=== PATIENT | female | born 1950 | race African-American/Black ===

== ENCOUNTER 2016-10-16 19:57 | Inpatient (IN) ==
[2016-10-16] MEDS ORDERED: ONDANSETRON 4 MG/2 ML VIAL IV STA (20:34)
[2016-10-16] MEDS ORDERED: SODIUM CHLORIDE 0.9% 1,000 ML IV STA (20:40)
[2016-10-16] MEDS ORDERED: ONDANSETRON 4 MG/2 ML VIAL ONE (20:41)
[2016-10-16 20:42] LABS: Basophils % 0.1 % (0.0-0.8); Hematocrit 45.6 VOL% (35.7-47.0); Hemoglobin 15.8 GM/DL (12.0-16.0); Immature Granulocytes % 0.3 %; Immature Granulocytes Absolute 0.04 #; Lymphocytes # 0.9 10*3/uL (1.4-4.0); Lymphocytes % 6.7 % (21.3-54.2); Mean Corpuscular HGB Conc 34.6 GM/DL (32-36); Mean Corpuscular Hemoglobin 30 PG (27-34); Mean Corpuscular Volume 87.7 FL (87-102); Mean Platelet Volume 9.8 FL (9.6-12.0); Monocytes # 0.1 10*3/uL (0.11-0.8); Monocytes % 0.9 % (1.7-12.7); Neutrophils # 12.6 10*3/uL (1.4-7.4); Platelet Count 317 T/CUMM (130-400); Red Cell Distribution Width 11.9 % (9.3-17.3); White Blood Count 13.7 T/CUMM (4-12)
--- NOTE | 2016-10-16 20:44 | Emergency Department Note ---
Arrival - Arrival Chief Complaint: Nausea/Vomiting/Diarrhea Stated Complaint: NAUSEA/VOMITING ED Nursing Triage Note: Pt to triage with c/o n/v, fever, chillis, and not being able to eat. Pt states she had a biopsy of throat done recently and it showed she had a "bad infection". Mode of Arrival: Ambulatory Time Seen by Provider: 10/16/16 20:26 - History of Present Illness HPI Narrative: This is a 66-year-old white female with a history of type 2 diabetes, hypothyroidism, atrial fibrillation with previous TIAs on Xarelto, hypertension , hyperlipidemia and dextrocardia who 2 weeks ago developed throat pain worse with swallowing radiating to her stomach for which an ENT doctor did a biopsy of her throat and told her she does not have cancer but rather has an infection. An MRI scan within the last 2 weeks of her back showed some kind of a mass in her stomach for which she is scheduled to have a CT scan next week. The patient presents with worsening throat pain, pain with swallowing fever and vomiting. Allergies/Adverse Reactions: Allergies Allergy/AdvReac Type Severity Reaction Status Date / Time Iodinated Contrast Media - Allergy Unknown/Unable Verified 03/30/16 17:18 Oral and to obtain [Iodinated Contrast Media - IV Dye] Sulfa (Sulfonamide Allergy Unknown/Unable Verified 03/30/16 17:18 Antibiotics) to obtain Home Medications: Home Medications Medication Instructions Recorded Confirmed Type Aspirin EC Tab 81 mg PO DAILY 03/30/16 09/20/16 History Baclofen Tab [Lioresal] 10 mg PO TID PRN 03/30/16 09/20/16 History Glimepiride 2 mg PO BID 03/30/16 09/20/16 History Hydrocodone/Acetaminophen 1 each PO TID 03/30/16 09/26/16 History [Hydrocodon-Acetaminophn 10-325] Levothyroxine Tab [Synthroid Tab] 25 mcg PO DAILY@0700 03/30/16 09/20/16 History Lisinopril [Prinivil] 20 mg PO DAILY 03/30/16 09/20/16 History Magnesium Oxide 400 mg PO TID 03/30/16 09/20/16 History Morphine Sulfate [Morphine ER Cap] 60 mg PO Q12H 03/30/16 09/20/16 History Nitroglycerin Sl Tab [Nitrostat] 0.4 mg SL Q5M PRN 03/30/16 09/20/16 History Omeprazole 20 mg PO DAILY 03/30/16 09/20/16 History Polyethylene Glycol Powder 17 gm PO DAILY PRN 03/30/16 09/20/16 History [Miralax] Rivaroxaban [Xarelto] 20 mg PO DAILY 03/30/16 09/20/16 History Simvastatin [Zocor] 10 mg PO DAILY 03/30/16 09/20/16 History Verapamil HCl [Verapamil ER Tab] 180 mg PO DAILY 03/30/16 09/20/16 History Zolpidem Tartrate 10 mg PO BEDTIME PRN 03/30/16 09/20/16 History busPIRone [Buspar] 15 mg PO BID 03/30/16 09/20/16 History cloNIDine TAB [Catapres Tab] 0.1 mg PO DAILY 03/30/16 09/20/16 History hydroCHLOROthiazide [Microzide] 12.5 mg PO DAILY 03/30/16 09/20/16 History Varenicline [Chantix] 1 mg PO BID 09/20/16 09/20/16 History Review of System - Review of System Constitutional: Present: fever. Absent: chills, diaphoresis Eyes: Absent: redness, vision change Head/Ears/Nose/Throat: Absent: epistaxis, nasal drainage Respiratory: Absent: respiratory distress, wheezing Gastrointestinal: Absent: diarrhea, constipation Genitourinary female: Absent: dysuria, urgency Musculoskeletal: Absent: joint swelling, lower back pain Skin: Absent: change in color Neurological: Absent: numbness, paresthesias, confusion Psychiatric: Absent: anxiety, depression Endocrine: Absent: polydipsia, polyuria Hematological/Lymphatic: Absent: easy bruising, lymphadenopathy Allergic/Immunologic: Absent: urticaria Medical,Surgical,& Family Hx - Medical History Cardio: History of: Cardiac Dysrhythmia (a fib), Hypertension, Cardiovascular Problems (cardioversion) No history of: [place] Neurology: History of: Cerebrovascular Accident, TIA No history of: Seizures HEENT: History of: Glaucoma, HEENT Problems (vocal cord polyp) Endocrine: History of: Diabetes Mellitus (NIDDM), Dyslipidemia Rheumatology: History of;: Fibromyalgia Renal: History of: Renal Problems Genitourinary: No history of: Bladder Problem, Kidney Stones Gastrointestinal: History of: GERD Musculoskeletal: History of: Back/Neck Problems (back surgery), Musculoskeletal Problems (arthritis) Other: No history of: Anesthesia Reactions - Surgical History Cardiac Surgeries: Sugical HX of: Cardiac Catheterization HEENT Surgeries: Surgical HX of: Eye Surgery (laser) Patient denies: Tonsilectomy & Adenoidectomy Abdominal Surgeries: Surgical HX of: Cholecystectomy, Colonoscopy, EGD Patient denies: Appendectomy Reproductive Surgeries: Surgical HX of;: Breast Surgery (bx), Hysterectomy Orthopedic Surgeries: Surgical HX of;: Orthopedic Surgery (right knee) - Social History Smoking Status: Unknown if ever smoked Frequency of Alcohol Use: None Type of Drug Use: None Exam Vital Signs: Vital Signs Temperature 100.3 F H 10/16/16 20:10 Pulse Rate 131 H 10/16/16 20:10 Respiratory Rate 18 10/16/16 20:10 Blood Pressure 193/118 10/16/16 20:10 O2 Sat by Pulse Oximetry 99 10/16/16 20:10 - Head Head exam: Present: atraumatic, normocephalic - Eye Eye exam: Present: PERRL, EOMI - ENT ENT exam: Present: normal exam, normal oropharynx - Neck Neck exam: Present: normal inspection - Chest Chest inspection: Present: normal inspection - Respiratory Respiratory exam: Present: normal lung sounds bilaterally - Cardiovascular Cardiovascular exam: Present: other (Tachycardia) - Abdominal Exam Abdominal exam: Present: soft, normal bowel sounds - Extremities Exam Extremities exam: Present: normal inspection, full ROM - Back Exam Back exam: Present: normal inspection, full ROM - Neurological Exam Neurological exam: Present: alert, oriented X3, CN II-XII intact - Psychiatric Psychiatric exam: Present: normal affect - Skin Skin exam: Present: warm, dry
[2016-10-16 21:13] LABS: Albumin 4.2 G/DL (3.4-5.0); Bilirubin,Total 0.6 MG/DL (0.2-1.0); Calcium 10.2 MG/DL (8.5-10.1); Lymphocytes 9 % (20-55); Platelet Estimate Adequate; Segmented Neutrophils 90 % (50-85); Total Cells Counted 100
[2016-10-16 21:14] LABS: Potassium 4.4 MMOL/L (3.5-5.1)
[2016-10-16] MEDS ORDERED: SODIUM CHLORIDE 0.9% 2,000 ML IV STA (22:09)
[2016-10-16] MEDS ORDERED: PROMETHAZINE INJ 25 MG in SODIUM CHLORIDE 0.9% 50 ML IV STA (22:10)
[2016-10-16] MEDS ORDERED: LABETALOL 20 MG/4 ML SYRINGE IV STA ×3 (22:11→22:12)
[2016-10-16] MEDS ORDERED: PROMETHAZINE 25 MG/1 ML VIAL ONE (22:18)
[2016-10-16] MEDS ORDERED: LABETALOL 20 MG/4 ML SYRINGE IV ONE ×2 (22:18→22:54)
--- NOTE | 2016-10-16 23:08 | Hospitalist History & Physical ---
Assessment and Plan (1) Atrial fibrillation Status: Acute Current Visit: Yes (2) Uncontrolled hypertension Status: Acute Current Visit: Yes (3) Nausea & vomiting Status: Acute Current Visit: Yes (4) Gastroenteritis Status: Acute Current Visit: Yes (5) Odynophagia Status: Acute Current Visit: Yes (6) Esophageal ulcer Status: Acute Assessment and plan: Patient will need to be admitted to our service. She cannot tolerate p.o. medications at this time. We will put her on a clear liquid diet and restart her medications but have IV medications that can be available for heart rate and blood pressure if needed. Will hydrate her. Going to recheck her labs in the morning she is febrile. Think it would be appropriate to start her on some antibiotics at this point. Recheck labs in the morning. Her lactate level is elevated. She does not appear to be septic or toxic. Will repeat that in the morning. Consult Dr. Harvey to see her. If she has diarrhea while in the hospital order stool studies. Continue with IV hydration she received several boluses in the emergency room. Current Visit: Yes (7) Acute kidney injury Status: Acute Current Visit: Yes History of Present Illness Chief complaint: Nausea vomiting and abdominal pain History of present illness: Ms. Caldera is a 66 year old female with past medical history significant for atrial fibrillation, TIA, spinal stenosis, fibromyalgia and diabetes who has been experiencing nausea and vomiting 1 month. Patient also reports that she had throat pain worse with swallowing that radiated to her stomach which Dr. Harvey biopsied and said that she had ulcers. She also was scheduled for a CT scan of her abdomen later this week. She had that performed today while in the emergency room. That showed no acute or concerning focal abnormality. Patient is unable to keep down her blood pressure medicines and her rate controlling medications and I was consulted to admit her. Her heart rate is elevated and her blood pressure is elevated. . Home Medications Medication Instructions Recorded Confirmed Type Aspirin EC Tab 81 mg PO DAILY 03/30/16 09/20/16 History Baclofen Tab [Lioresal] 10 mg PO TID PRN 03/30/16 09/20/16 History Glimepiride 2 mg PO BID 03/30/16 09/20/16 History Hydrocodone/Acetaminophen 1 each PO TID 03/30/16 09/26/16 History [Hydrocodon-Acetaminophn 10-325] Levothyroxine Tab [Synthroid Tab] 25 mcg PO DAILY@0700 03/30/16 09/20/16 History Lisinopril [Prinivil] 20 mg PO DAILY 03/30/16 09/20/16 History Magnesium Oxide 400 mg PO TID 03/30/16 09/20/16 History Morphine Sulfate [Morphine ER Cap] 60 mg PO Q12H 03/30/16 09/20/16 History Nitroglycerin Sl Tab [Nitrostat] 0.4 mg SL Q5M PRN 03/30/16 09/20/16 History Omeprazole 20 mg PO DAILY 03/30/16 09/20/16 History Polyethylene Glycol Powder 17 gm PO DAILY PRN 03/30/16 09/20/16 History [Miralax] Rivaroxaban [Xarelto] 20 mg PO DAILY 03/30/16 09/20/16 History Simvastatin [Zocor] 10 mg PO DAILY 03/30/16 09/20/16 History Verapamil HCl [Verapamil ER Tab] 180 mg PO DAILY 03/30/16 09/20/16 History Zolpidem Tartrate 10 mg PO BEDTIME PRN 03/30/16 09/20/16 History busPIRone [Buspar] 15 mg PO BID 03/30/16 09/20/16 History cloNIDine TAB [Catapres Tab] 0.1 mg PO DAILY 03/30/16 09/20/16 History hydroCHLOROthiazide [Microzide] 12.5 mg PO DAILY 03/30/16 09/20/16 History Varenicline [Chantix] 1 mg PO BID 09/20/16 09/20/16 History Allergies Allergy/AdvReac Type Severity Reaction Status Date / Time Iodinated Contrast Media - Allergy Unknown/Unable Verified 03/30/16 17:18 Oral and to obtain [Iodinated Contrast Media - IV Dye] Sulfa (Sulfonamide Allergy Unknown/Unable Verified 03/30/16 17:18 Antibiotics) to obtain Medical,Surgical,& Family Hx - Medical History Cardio: History of: Cardiac Dysrhythmia (a fib), Hypertension, Cardiovascular Problems (cardioversion) No history of: [place] Neurology: History of: Cerebrovascular Accident, TIA No history of: Seizures HEENT: History of: Glaucoma, HEENT Problems (vocal cord polyp) Endocrine: History of: Diabetes Mellitus (NIDDM), Dyslipidemia Rheumatology: History of;: Fibromyalgia Renal: History of: Renal Problems Genitourinary: No history of: Bladder Problem, Kidney Stones Gastrointestinal: History of: GERD Musculoskeletal: History of: Back/Neck Problems (back surgery), Musculoskeletal Problems (arthritis) Other: No history of: Anesthesia Reactions - Surgical History Cardiac Surgeries: Sugical HX of: Cardiac Catheterization HEENT Surgeries: Surgical HX of: Eye Surgery (laser) Patient denies: Tonsilectomy & Adenoidectomy Abdominal Surgeries: Surgical HX of: Cholecystectomy, Colonoscopy, EGD Patient denies: Appendectomy Reproductive Surgeries: Surgical HX of;: Breast Surgery (bx), Hysterectomy Orthopedic Surgeries: Surgical HX of;: Orthopedic Surgery (right knee) - Family History Family History: Reports;: Family Diabetes, Family Hypertension, Family Stroke - Social History Smoking Status: Former smoker Frequency of Alcohol Use: None Type of Drug Use: None 12 point system: reviewed and no additional remarkable complaints except as stated Exam - Constitutional Vitals: Period Temp Pulse Resp BP Sys/Floyd Pulse Ox Last 24 Hr 100.3 F-100.3 F 131-131 18-18 193-193/118-118 99 General appearance: normal weight - Head Head exam: Present: normal inspection - Eye Eye exam: Present: EOMI Pupils: Present: NAVA - ENT ENT exam: Present: normal exam - Neck Neck exam: Present: normal inspection - Respiratory Respiratory exam: Present: clear to auscultation bilaterally - Cardiovascular Cardiovascular exam: Present: irregular rhythm, tachycardia - GI/Abdominal GI/Abdominal exam: Present: normal bowel sounds, tenderness (Mild tenderness appreciated). Absent: mass, rebound - Extremities Exam Extremities exam: Present: normal inspection - Back Exam Back exam: Present: normal inspection - Neurological Exam Neurological exam: Present: alert, oriented X3 - Psychiatric Psychiatric exam: Present: depressed - Skin Skin exam: Present: normal color Results - Labs CBC & BMP: 10/16/16 20:32 10/16/16 20:32
[2016-10-16] MEDS ORDERED: PROMETHAZINE 25 MG/1 ML VIAL IM PRN (23:15)
[2016-10-16] MEDS ORDERED: LABETALOL 20 MG/4 ML SYRINGE IV PRN (23:21)
[2016-10-16] MEDS ORDERED: GLUCAGON 1 MG VIAL IM PRN (23:30)
[2016-10-16] MEDS ORDERED: DEXTROSE 50% 25 GM/50 ML SYRINGE IV PRN (23:30)
[2016-10-16] MEDS ORDERED: LABETALOL 100 MG/20 ML VIAL IV ONE (23:40)
[2016-10-17] MEDS ORDERED: MORPHINE 2 MG/1 ML SYRINGE IV STA ×2 (00:04→00:06)
[2016-10-17] MEDS ORDERED: MORPHINE 2 MG/1 ML SYRINGE ONE (00:06)
[2016-10-17] MEDS ORDERED: MORPHINE 2 MG/1 ML SYRINGE IV PRN (01:06)
[2016-10-17 01:18] LABS: Troponin I Only 0.071 NG/ML (0.00-0.045)
[2016-10-17] MEDS ORDERED: BACLOFEN 10 MG TABLET PO PRN (01:22)
[2016-10-17] MEDS: SODIUM CHLORIDE 0.9% 1,000 ML IV SCH ×3 (01:23→23:20)
[2016-10-17] MEDS: ONDANSETRON 4 MG/2 ML VIAL IV PRN ×3 (01:23→14:49)
[2016-10-17] MEDS: DILTIAZEM INJ 100 MG in SODIUM CHLORIDE 0.9% 100 ML IV SCH (01:32)
[2016-10-17] MEDS: LEVOFLOXACIN INJ 500 MG in PREMIX 1 EACH IV SCH (01:32)
[2016-10-17 05:15] LABS: Basophils % 0.1 % (0.0-0.8); Hematocrit 40.7 VOL% (35.7-47.0); Hemoglobin 14.3 GM/DL (12.0-16.0); Immature Granulocytes % 0.4 %; Immature Granulocytes Absolute 0.06 #; Lymphocytes # 1.6 10*3/uL (1.4-4.0); Lymphocytes % 10.4 % (21.3-54.2); Mean Corpuscular HGB Conc 35.1 GM/DL (32-36); Mean Corpuscular Hemoglobin 31 PG (27-34); Mean Corpuscular Volume 87.9 FL (87-102); Mean Platelet Volume 9.9 FL (9.6-12.0); Monocytes # 0.9 10*3/uL (0.11-0.8); Monocytes % 5.7 % (1.7-12.7); Neutrophils # 12.5 10*3/uL (1.4-7.4); Neutrophils % 83.4 % (38.7-73.9); Platelet Count 272 T/CUMM (130-400); Red Blood Count 4.63 MC/CUMM (3.8-5.5); Red Cell Distribution Width 12.1 % (9.3-17.3); White Blood Count 14.9 T/CUMM (4-12)
[2016-10-17 05:48] LABS: Albumin 3.3 G/DL (3.4-5.0); Bilirubin,Total 0.5 MG/DL (0.2-1.0); Calcium 9.2 MG/DL (8.5-10.1); Osmolality,Calculated 281.7 MOS/KG (273-304); Potassium 4.6 MMOL/L (3.5-5.1); Total Protein 6.9 G/DL (6.4-8.3)
[2016-10-17 05:57] LABS: Troponin I Only 0.109 NG/ML (0.00-0.045)
[2016-10-17] MEDS: LEVOTHYROXINE 25 MCG TABLET PO SCH (06:08)
--- NOTE | 2016-10-17 06:29 | CT Report ---
CT chest abdomen pelvis w con Indication: Chest pain. Dysphagia. Nausea and vomiting. CT CHEST, ABDOMEN AND PELVIS WITH CONTRAST DLP: 957 mGy*cm. One or more of the following dose reduction techniques was used: Automated exposure control, adjustment of the mA and/or kV according the patient size, or use of iterative reconstruction techniques. Comparison: CT KUB 02/24/2011 Technique: Axial CT images of the chest, abdomen and pelvis were obtained following the intravenous administration of Omnipaque 350, 100 cc. Oral contrast was not administered. Chest: Atheromatous disease and tortuosity of thoracic aorta noted. Coronary artery calcifications are present as well. Heart size is normal. Left atrial enlargement noted. Pulmonary artery is dilated measuring 36 mm diameter. No pulmonary arterial filling defects identified to the segmental level. Thin-walled cyst is present within the medial right lung base. Lungs are otherwise clear. Right hemidiaphragm is elevated. The volume of the right hemithorax is less than the left which may be congenital in nature. This finding was present on the prior exam. Endplate degenerative changes of the thoracic spine are present, with endplate reactive sclerosis and osteophytosis at T9-10. No infiltrative bone lesion seen. Abdomen: Atheromatous disease of the aorta and mesenteric vasculature is again shown. No occlusive disease identified. Cholecystectomy clips are present. Liver, spleen, pancreas, adrenal glands are within normal limits. In general, left kidney appears somewhat hypoperfused when compared to the right although kidneys are symmetric in size. The degree of enhancement in the left is much less than the right. There is cortical scarring at the upper pole the right kidney, chronic. No solid renal masses shown. No bowel obstruction. No free fluid, free air or lymphadenopathy. Wall of cecum appears thick walled. Adjacent to the tip of the cecum heart to small soft tissue densities, one 18 mm diameter and the other 12 mm diameter. These were present on the prior examination and are unchanged. Pelvis: Uterus is absent. Urinary bladder and rectosigmoid colon appear unremarkable. Normal-sized appendix without inflammation. No lymphadenopathy. No free fluid or free air. Degenerative changes of the lumbar spine are moderately severe, except for severe disc space narrowing at L3-4 and L5-S1. Impression: 1. Extensive calcified atheromatous disease. Slight hypoperfusion of the left kidney when compared to the right suggest renal artery stenosis, without renal volume loss. Consider nuclear medicine MAG3 scan to evaluate comparative perfusion. Cortical scarring upper pole right kidney. 2. Dilated main pulmonary artery is 36 mm, and enlargement of the left atrium. Query mitral valve disease. Echocardiography is suggested. 3. Slightly unusual appearing asymmetry of the size of the hemithoraces with elevation right hemidiaphragm and rightward shift midline structures with a right lung smaller than the left. There is a thin-walled cyst at the right lung base as well, also chronic. Suspect this is congenital. 4. Minimal thickening of the wall of the cecum without significant adjacent inflammation. Normal-sized appendix. 2 small soft tissue densities adjacent to the cecal wall are present but stable since 2011 and therefore benign. Is there history of remote diverticulitis? 5. Degenerative changes thoracolumbar spine. PROCEDURE INTERPRETED AT [facility] [place] DEPARTMENT OF RADIOLOGY Final Report Signed by: Lucian Gamez M.D.
[2016-10-17] MEDS ORDERED: PANTOPRAZOLE 40 MG TABLET PO SCH (09:00)
[2016-10-17] MEDS ORDERED: CHANTIX 1 MG PO SCH (09:00)
[2016-10-17] MEDS: INSULIN REGULAR 100 UNIT/ML SUBCUT SCH ×3 (09:23→16:52)
[2016-10-17] MEDS: busPIRone 15 MG TABLET PO SCH ×2 (09:24→21:13)
[2016-10-17] MEDS: VERAPAMIL SR 180 MG TABLET PO SCH (09:24)
[2016-10-17] MEDS: LISINOPRIL 20 MG TABLET PO SCH (09:24)
[2016-10-17] MEDS: cloNIDine 0.1 MG TABLET PO SCH (09:24)
[2016-10-17] MEDS: RIVAROXABAN 20 MG TABLET PO SCH (09:24)
[2016-10-17] MEDS: ASPIRIN EC 81 MG TABLET PO SCH (09:24)
[2016-10-17] MEDS: hydroCHLOROthiazide 12.5 MG CAPSULE PO SCH (09:24)
[2016-10-17] MEDS: SIMVASTATIN 10 MG TABLET PO SCH (09:25)
[2016-10-17] MEDS: MORPHINE ER 30 MG TABLET PO SCH ×2 (09:26→21:12)
[2016-10-17] MEDS: MAGNESIUM OXIDE 400 MG TABLET PO SCH ×3 (09:27→21:13)
[2016-10-17] MEDS ORDERED: NITROGLYCERIN SL 0.4 MG TABLET SL PRN (10:25)
--- NOTE | 2016-10-17 10:28 | Hospitalist Progress Note ---
Assessment and Plan (1) Hypertension Status: Acute Assessment and plan: Her blood pressure today is 160/92. She continues on her present medications. I will prescribe hydralazine 20 mg IV every 6 hours as needed. Current Visit: Yes (2) Atrial fibrillation Status: Acute Assessment and plan: She has chronic atrial fibrillation. Her heart rate today is 90/min. I will continue her present medications. Current Visit: Yes (3) Odynophagia Status: Acute Assessment and plan: She has severe pain with swallowing. She is able to tolerate small amounts of water and small pills. I have prescribed pantoprazole 40 mg IV every 12 hours. Gastroenterology has been consulted. Current Visit: Yes (4) Esophageal ulcer Status: Acute Assessment and plan: See above. Current Visit: Yes (5) Acute kidney injury Status: Acute Assessment and plan: Her BUN is 16 and creatinine 1.30. She is probably mildly dehydrated. She is presently receiving intravenous normal saline. Current Visit: Yes Hospitalist: Subjective Interval history: Patient has a previously known history of esophageal ulcers. She was admitted to the hospital last night because of severe pain with swallowing. She is able to tolerate small amounts of water and small pills. Gastroenterology has been consulted. Exam - Constitutional Vitals: Period Temp Pulse Resp BP Sys/Floyd Pulse Ox Last 24 Hr 97.4 F-100.3 F 81-131 16-20 159-193/86-118 97-100 General appearance: no acute distress - Head Head exam: Present: normal inspection - Neck Neck exam: Present: normal inspection - Respiratory Respiratory exam: Present: clear to auscultation bilaterally - Cardiovascular Cardiovascular exam: Present: regular rate and rhythm - GI/Abdominal GI/Abdominal exam: Present: normal bowel sounds, soft, other (Nontender with no palpable masses or hepatosplenomegaly.) - Extremities Exam Extremities exam: Present: normal inspection - Neurological Exam Neurological exam: Present: alert, oriented X3 - Psychiatric Psychiatric exam: Present: normal affect, normal mood - Skin Skin exam: Present: normal color, warm, intact Results - Labs CBC & BMP: 10/17/16 05:01 10/17/16 05:01
--- NOTE | 2016-10-17 10:56 | Gastrointestinal Consult Note ---
Assessment and Plan (1) Nausea & vomiting Status: Acute Assessment and plan: 10/17-1-2 month history of nausea with smell of food as well as vomiting episodes due to dysphagia/odynophagia. 12 pound weight loss 2 weeks. EGD in September with findings noted as below with negative pathology. CT findings noted as below as well. Plan an addendum to followed by Dr. Harvey. Current Visit: Yes History of Present Illness Chief complaint: Nausea, vomiting, abdominal pain History of present illness: Ms. Caldera is a 66 year old female Who was admitted to the hospital on yesterday with complaints of nausea and vomiting as well as abdominal pain 1 month. Patient states that approximately 1-2 months ago she began noticing that every time she would try to eat the smell of food will cause her to be a little nauseated. She states initially she did not have any vomiting with these nausea spells and was able to eat however it was just more of a nuisance. She states that early in September she began having vomiting with the nausea as well as some abdominal pain that she states started in her esophagus and as she swallowed with radiate down into her stomach with a gnawing sensation. She saw Dr. Harvey in September and underwent an EGD with findings of esophageal ulcerations with pathology returned as negative. Patient states that the symptoms continued and over the last 2 weeks she has lost approximately 12 pounds due to inability to eat. She states due to this she has been having difficulty also keeping down her blood pressure pills as well as her other medications. Upon admission she was found to have an elevated heart rate as well as blood pressure. She has a history of atrial fibrillation and takes Xarelto for this daily. She denies any pain with swallowing, melena, hematochezia, coffee-ground emesis or hematemesis associated with this. She was noted on admission to have a fever of 100.3 and IV antibiotics were initiated. She also had a CT of abdomen with contrast with only noted GI findings of minimal thickening of the cecal wall without significant inflammation with questionable remote diverticulitis. She was also found on admission to be mildly dehydrated and is receiving IV fluids at this time. Xarelto is being continued at present time. History of cholecystectomy. Home Medications Medication Instructions Recorded Confirmed Type Aspirin EC Tab 81 mg PO DAILY 03/30/16 10/17/16 History Baclofen Tab [Lioresal] 10 mg PO TID PRN 03/30/16 10/17/16 History Glimepiride 2 mg PO BID 03/30/16 10/17/16 History Hydrocodone/Acetaminophen 1 each PO TID 03/30/16 10/17/16 History [Hydrocodon-Acetaminophn 10-325] Levothyroxine Tab [Synthroid Tab] 25 mcg PO DAILY@0700 03/30/16 10/17/16 History Lisinopril [Prinivil] 20 mg PO DAILY 03/30/16 10/17/16 History Magnesium Oxide 400 mg PO TID 03/30/16 10/17/16 History Morphine Sulfate [Morphine ER Cap] 60 mg PO Q12H 03/30/16 10/17/16 History Nitroglycerin Sl Tab [Nitrostat] 0.4 mg SL Q5M PRN 03/30/16 10/17/16 History Omeprazole 20 mg PO DAILY 03/30/16 10/17/16 History Polyethylene Glycol Powder 17 gm PO DAILY PRN 03/30/16 10/17/16 History [Miralax] Rivaroxaban [Xarelto] 20 mg PO DAILY 03/30/16 10/17/16 History Simvastatin [Zocor] 10 mg PO DAILY 03/30/16 10/17/16 History Verapamil HCl [Verapamil ER Tab] 180 mg PO DAILY 03/30/16 10/17/16 History Zolpidem Tartrate 10 mg PO BEDTIME PRN 03/30/16 10/17/16 History busPIRone [Buspar] 15 mg PO BID 03/30/16 10/17/16 History cloNIDine TAB [Catapres Tab] 0.1 mg PO DAILY 03/30/16 10/17/16 History hydroCHLOROthiazide [Microzide] 12.5 mg PO DAILY 03/30/16 10/17/16 History Varenicline [Chantix] 1 mg PO BID 09/20/16 10/17/16 History Allergies Allergy/AdvReac Type Severity Reaction Status Date / Time Iodinated Contrast Media - Allergy Unknown/Unable Verified 03/30/16 17:18 Oral and to obtain [Iodinated Contrast Media - IV Dye] Sulfa (Sulfonamide Allergy Unknown/Unable Verified 03/30/16 17:18 Antibiotics) to obtain Medical,Surgical,& Family Hx - Medical History Cardio: History of: Cardiac Dysrhythmia (a fib), Hypertension, Cardiovascular Problems (cardioversion) No history of: [place] Neurology: History of: Cerebrovascular Accident, TIA No history of: Seizures HEENT: History of: Glaucoma, HEENT Problems (vocal cord polyp) Endocrine: History of: Diabetes Mellitus (NIDDM), Dyslipidemia Rheumatology: History of;: Fibromyalgia Renal: History of: Renal Problems Genitourinary: No history of: Bladder Problem, Kidney Stones Gastrointestinal: History of: GERD Musculoskeletal: History of: Back/Neck Problems (back surgery), Musculoskeletal Problems (arthritis) Other: No history of: Anesthesia Reactions - Surgical History Cardiac Surgeries: Sugical HX of: Cardiac Catheterization HEENT Surgeries: Surgical HX of: Eye Surgery (laser) Patient denies: Tonsilectomy & Adenoidectomy Abdominal Surgeries: Surgical HX of: Cholecystectomy, Colonoscopy, EGD Patient denies: Appendectomy Reproductive Surgeries: Surgical HX of;: Breast Surgery (bx), Hysterectomy Orthopedic Surgeries: Surgical HX of;: Orthopedic Surgery (right knee) - Family History Family History: Reports;: Family Diabetes, Family Hypertension, Family Stroke - Social History Smoking Status: Former smoker Frequency of Alcohol Use: None Type of Drug Use: None 12 point system: reviewed and no additional remarkable complaints except as stated - Constitutional Constitutional: Present: as per HPI, fever(s), weight loss (12 pounds 2 weeks) - EENT Eyes: Present: as per HPI Ears: Present: as per HPI Nose, mouth and throat: Present: as per HPI, dysphagia - Cardiovascular Cardiovascular: Present: as per HPI - Respiratory Respiratory: Present: as per HPI - Gastrointestinal Gastrointestinal: Present: as per HPI, abdominal pain, dyspepsia, dysphagia, heartburn, nausea, vomiting - Genitourinary Genitourinary: Present: as per HPI - Musculoskeletal Musculoskeletal: Present: as per HPI, back pain - Neurological Neurological: Present: as per HPI - Psychiatric Psychiatric: Present: as per HPI - Endocrine Endocrine: Present: as per HPI - Hematologic/Lymphatic Hematologic/Lymphatic: Present: as per HPI Exam - Constitutional Vitals: Period Temp Pulse Resp BP Sys/Floyd Pulse Ox Last 24 Hr 97.4 F-100.3 F 81-131 16-20 159-193/86-118 97-100 General appearance: normal weight, no acute distress - Head Head exam: Present: normal inspection, normocephalic - Eye Eye exam: Present: other (Lids and conjunctivae are unremarkable). Absent: scleral icterus - ENT ENT exam: Present: normal exam, normal oropharynx - Neck Neck exam: Present: normal inspection - Respiratory Respiratory exam: Present: clear to auscultation bilaterally. Absent: rales, rhonchi, wheezes - Cardiovascular Cardiovascular exam: Present: regular rate and rhythm. Absent: diastolic murmur , JVD, systolic murmur - GI/Abdominal GI/Abdominal exam: Present: normal bowel sounds, soft. Absent: ascites, distended, mass, organomegaly, tenderness - Extremities Exam Extremities exam: Present: normal inspection, full ROM - Back Exam Back exam: Present: normal inspection - Neurological Exam Neurological exam: Present: alert, oriented X3 - Psychiatric Psychiatric exam: Present: normal affect, normal mood - Skin Skin exam: Present: normal color, warm, dry Results - Labs CBC & BMP: 10/17/16 05:01 10/17/16 05:01 Lab Results: I have reviewed the past 24 hour labs
[2016-10-17] MEDS: GLIMEPIRIDE 2 MG TABLET PO SCH (21:12)
[2016-10-18] MEDS: INSULIN REGULAR 100 UNIT/ML SUBCUT SCH ×5 (00:47→20:32)
[2016-10-18] MEDS: PANTOPRAZOLE 40 MG VIAL IV SCH ×3 (00:48→20:24)
[2016-10-18] MEDS: DILTIAZEM INJ 100 MG in SODIUM CHLORIDE 0.9% 100 ML IV SCH (00:49)
[2016-10-18] MEDS: LEVOFLOXACIN INJ 500 MG in PREMIX 1 EACH IV SCH (01:30)
[2016-10-18 05:17] LABS: Basophils % 0.6 % (0.0-0.8); Eosinophils # 0.1 10*3/uL (0.0-0.87); Eosinophils % 1.6 % (0.00-10.9); Hematocrit 36.5 VOL% (35.7-47.0); Hemoglobin 12.1 GM/DL (12.0-16.0); Immature Granulocytes % 0.4 %; Immature Granulocytes Absolute 0.03 #; Lymphocytes # 2.9 10*3/uL (1.4-4.0); Lymphocytes % 42.3 % (21.3-54.2); Mean Corpuscular HGB Conc 33.2 GM/DL (32-36); Mean Corpuscular Hemoglobin 30 PG (27-34); Mean Corpuscular Volume 91.3 FL (87-102); Mean Platelet Volume 10.2 FL (9.6-12.0); Monocytes # 0.7 10*3/uL (0.11-0.8); Monocytes % 9.4 % (1.7-12.7); Neutrophils # 3.1 10*3/uL (1.4-7.4); Neutrophils % 45.7 % (38.7-73.9); Platelet Count 218 T/CUMM (130-400); Red Cell Distribution Width 12.4 % (9.3-17.3); White Blood Count 6.9 T/CUMM (4-12)
[2016-10-18 05:47] LABS: Calcium 8.3 MG/DL (8.5-10.1); Osmolality,Calculated 275.7 MOS/KG (273-304); Potassium 4.3 MMOL/L (3.5-5.1)
[2016-10-18] MEDS: LEVOTHYROXINE 25 MCG TABLET PO SCH (07:29)
[2016-10-18] MEDS: SODIUM CHLORIDE 0.9% 1,000 ML IV SCH ×3 (08:53→23:49)
[2016-10-18] MEDS: ASPIRIN EC 81 MG TABLET PO SCH (08:54)
[2016-10-18] MEDS: RIVAROXABAN 20 MG TABLET PO SCH (08:54)
[2016-10-18] MEDS: GLIMEPIRIDE 2 MG TABLET PO SCH ×2 (08:54→20:32)
[2016-10-18] MEDS: busPIRone 15 MG TABLET PO SCH ×2 (08:54→20:26)
[2016-10-18] MEDS: VERAPAMIL SR 180 MG TABLET PO SCH (10:59)
[2016-10-18] MEDS: hydroCHLOROthiazide 12.5 MG CAPSULE PO SCH (11:00)
[2016-10-18] MEDS: cloNIDine 0.1 MG TABLET PO SCH (11:00)
[2016-10-18] MEDS: MAGNESIUM OXIDE 400 MG TABLET PO SCH ×3 (11:00→20:24)
[2016-10-18] MEDS: MORPHINE ER 30 MG TABLET PO SCH ×2 (11:00→20:24)
[2016-10-18] MEDS: LISINOPRIL 20 MG TABLET PO SCH (11:01)
[2016-10-18] MEDS: SIMVASTATIN 10 MG TABLET PO SCH (11:01)
[2016-10-18] MEDS ORDERED: PHENYLEPHRINE 1 MG/10 ML SYRINGE IV ONE (13:22)
[2016-10-18] MEDS ORDERED: PROPOFOL 200 MG/20 ML VIAL IV ONE (13:22)
[2016-10-18] MEDS ORDERED: LIDOCAINE 2% 5 ML VIAL ONE (13:22)
--- NOTE | 2016-10-18 13:25 | History and Physical Update ---
History and Physical Update - History and Physical H&P was reviewed, the patient examined and there: are no changes in the patients condition since last H&P was completed. - Physical Exam Mental Status: alert and oriented Heart: regular rate and rhythm Lung: clear to auscultation Abdomen: within normal limits Vitals: within normal limits
--- NOTE | 2016-10-18 13:33 | Operative Note ---
Date of procedure: 10/18/16 Pre-op diagnosis: Odynophagia, nausea Procedure: Procedure: Esophagogastroduodenoscopy Brief clinical abstract: 66-year-old female complains of odynophagia and nausea. She had mid esophageal ulcers with nondiagnostic pathology a few weeks ago. She was improved but symptoms have recurred recently. Indication for procedure: Odynophagia, nausea Endoscopic findings:[After informed consent was obtained, the patient was placed in the left lateral decubitus position. The gastroscope was inserted in the upper esophagus under direct vision with no resistance encountered. There were some scattered areas of yellowish white exudate in the upper esophagus consistent with mild candidiasis. No ulcers were seen. Squamocolumnar junction was sharply demarcated at the diaphragmatic indentation. The endoscope was advanced in the stomach which was carefully examined including retroflexed view of the cardia and fundus with no abnormality seen. The pyloric channel, duodenal bulb, second and third portion of the duodenum appeared normal. The endoscope was removed and patient appeared to tolerate the procedure well. Impression: Esophageal candidiasis-otherwise normal EGD Recommendations: Fluconazole therapy and follow response to this. Anesthesia: MAC Surgeon / Physician: Miguel Harvey Estimated blood loss: none Specimens: none sent Condition: stable Disposition: post procedure unit Results - Labs CBC & BMP: 10/18/16 04:03 10/18/16 04:03 Discharge Plan - Discharge Medications No Action Rivaroxaban [Xarelto] 20 mg PO DAILY Simvastatin [Zocor] 10 mg PO DAILY Omeprazole 20 mg PO DAILY Nitroglycerin Sl Tab [Nitrostat] 0.4 mg SL Q5M PRN PRN Reason: Chest Pain Morphine Sulfate [Morphine ER Cap] 60 mg PO Q12H Magnesium Oxide 400 mg PO TID Lisinopril [Prinivil] 20 mg PO DAILY Levothyroxine Tab [Synthroid Tab] 25 mcg PO DAILY@0700 hydroCHLOROthiazide [Microzide] 12.5 mg PO DAILY Glimepiride 2 mg PO BID busPIRone [Buspar] 15 mg PO BID Baclofen Tab [Lioresal] 10 mg PO TID PRN PRN Reason: Spasms Aspirin EC Tab 81 mg PO DAILY Zolpidem Tartrate 10 mg PO BEDTIME PRN PRN Reason: Insomnia Verapamil HCl [Verapamil ER Tab] 180 mg PO DAILY Polyethylene Glycol Powder [Miralax] 17 gm PO DAILY PRN PRN Reason: Constipation Hydrocodone/Acetaminophen [Hydrocodon-Acetaminophn 10-325] 1 each PO TID cloNIDine TAB [Catapres Tab] 0.1 mg PO DAILY Varenicline [Chantix] 1 mg PO BID - Follow Up or Referral - Forms/Instructions
[2016-10-18] MEDS: FLUCONAZOLE INJ 100 MG in IV BAG 1 EACH IV SCH (14:43)
--- NOTE | 2016-10-18 14:55 | Anesthesia Post-Op ---
Anesthesia Post OP - Post Ansesthetic Evaluation Patient seen in post op: Yes Resp: within normal limits CV: within normal limits Mental: within normal limits Temp: within normal limits [id number]: within normal limits Nausea and Vomiting: within normal limits Pain: within normal limits
--- NOTE | 2016-10-18 17:42 | Hospitalist Progress Note ---
Assessment and Plan - Time spent with patient Time spent with patient: Greater than 30 minutes (1) Odynophagia Status: Chronic Assessment and plan: 10/18/2016: Patient is a 66-year-old black female with history of odynophagia associated with esophageal ulcers. Histology of the biopsy specimen did not confirm malignancy. Patient underwent repeat endoscopy earlier today. Esophageal candidiasis reported but no other acute abnormalities. Fluconazole Rx ordered. Current Visit: Yes (2) Atrial fibrillation Status: Chronic Assessment and plan: 10/18/2016: Paroxysmal atrial fibrillation with intermittent rapid ventricular rate. Patient did receive diltiazem infusion overnight for ventricular rate control. Patient is to titrate off diltiazem infusion on to oral medications that control her hypertension and ventricular rate. Current Visit: Yes (3) Hypothyroidism Status: Chronic Assessment and plan: 10/18/2016: Patient received 25 mcg Synthroid supplementation daily. Check TSH and free T4 in a.m. Titrate Synthroid dose accordingly. Current Visit: Yes Hospitalist: Subjective Interval history: 10/18/2016: Patient is a 66-year-old black female admitted for evaluation of dysphagia. Patient has a history of stomach ulcers confirmed on endoscopy. Exam - Constitutional Vitals: Period Temp Pulse Resp BP Sys/Floyd Pulse Ox Last 24 Hr 96.8 F-97.7 F 65-91 14-20 99-117/62-73 94-100 General appearance: normal weight - Head Head exam: Present: normal inspection - ENT ENT exam: Present: normal exam - Neck Neck exam: Absent: meningismus, tenderness - Respiratory Respiratory exam: Present: clear to auscultation bilaterally. Absent: rales, wheezes - Cardiovascular Cardiovascular exam: Present: regular rate and rhythm - GI/Abdominal GI/Abdominal exam: Present: normal bowel sounds, soft. Absent: firm, tenderness , rebound - Extremities Exam Extremities exam: Absent: calf tenderness, edema - Neurological Exam Neurological exam: Present: alert, oriented X3 - Psychiatric Psychiatric exam: Present: normal mood - Skin Skin exam: Present: normal color, warm. Absent: rash Results - Labs CBC & BMP: 10/18/16 04:03 10/18/16 04:03
[2016-10-19] MEDS: ZALEPLON 5 MG CAPSULE PO PRN ×2 (00:29→21:57)
[2016-10-19] MEDS: SODIUM CHLORIDE 0.9% 1,000 ML IV SCH ×3 (02:08→22:06)
[2016-10-19 05:06] LABS: Basophils % 0.3 % (0.0-0.8); Eosinophils # 0.1 10*3/uL (0.0-0.87); Eosinophils % 0.9 % (0.00-10.9); Hematocrit 35.7 VOL% (35.7-47.0); Hemoglobin 12.1 GM/DL (12.0-16.0); Immature Granulocytes % 0.4 %; Immature Granulocytes Absolute 0.03 #; Lymphocytes % 29.4 % (21.3-54.2); Mean Corpuscular HGB Conc 33.9 GM/DL (32-36); Mean Corpuscular Hemoglobin 31 PG (27-34); Mean Corpuscular Volume 90.4 FL (87-102); Mean Platelet Volume 10.2 FL (9.6-12.0); Monocytes # 0.5 10*3/uL (0.11-0.8); Monocytes % 7.2 % (1.7-12.7); NRBC # 0.02 10*3/uL; Neutrophils # 4.2 10*3/uL (1.4-7.4); Neutrophils % 61.8 % (38.7-73.9); Platelet Count 204 T/CUMM (130-400); Red Blood Count 3.95 MC/CUMM (3.8-5.5); Red Cell Distribution Width 12.5 % (9.3-17.3); White Blood Count 6.8 T/CUMM (4-12)
[2016-10-19 05:37] LABS: Magnesium 2.2 MG/DL (1.8-2.4); Osmolality,Calculated 279.3 MOS/KG (273-304); Potassium 4.2 MMOL/L (3.5-5.1)
[2016-10-19 05:51] LABS: Free T4 (Free Thyroxine) 1.03 NG/DL (0.76-1.46); Thyroid Stimulating Hormone 0.669 uIU/ml (0.358-3.74)
[2016-10-19] MEDS: DILTIAZEM INJ 100 MG in SODIUM CHLORIDE 0.9% 100 ML IV SCH ×3 (06:00→23:20)
[2016-10-19] MEDS: LEVOTHYROXINE 25 MCG TABLET PO SCH (06:02)
--- NOTE | 2016-10-19 09:15 | Gastrointestinal Progress Note ---
Assessment and Plan (1) Nausea & vomiting Status: Acute Assessment and plan: 10/19-no complaints of nausea or vomiting. EGD findings noted as below. Diflucan has been initiated. Plan an addendum to followed by Dr. Harvey. 10/17-1-2 month history of nausea with smell of food as well as vomiting episodes due to dysphagia/odynophagia. 12 pound weight loss 2 weeks. EGD in September with findings noted as below with negative pathology. CT findings noted as below as well. Plan an addendum to followed by Dr. Harvey. Current Visit: Yes Gastroenterology - PN: Subj Interval history: CC: Odontophagia, nausea Patient is seen awake and alert lying in bed. States she rested well overnight. EGD findings on yesterday noted with esophageal Janice. Fluconazole has been initiated and patient states that she is feeling some better today. She is tolerating her clear liquids well and at this time we will advance to full liquids and continue to monitor. She denies any nausea as well as any vomiting. Abdomen is soft, nontender. ROS: Denies shortness of breath or chest pain Exam (Progress Note) - Constitutional Vitals: Period Temp Pulse Resp BP Sys/Floyd Pulse Ox Last 24 Hr 96.8 F-98.9 F 65-92 14-20 101-117/59-73 97-100 General appearance: normal weight, no acute distress - Head Head exam: Present: normal inspection, normocephalic - Eye Eye exam: Present: other (Lids and conjunctive are unremarkable). Absent: scleral icterus - ENT ENT exam: Present: normal exam, normal oropharynx - Neck Neck exam: Present: normal inspection - Respiratory Respiratory exam: Present: clear to auscultation bilaterally. Absent: rales, rhonchi, wheezes - Cardiovascular Cardiovascular exam: Present: regular rate and rhythm. Absent: diastolic murmur , JVD, systolic murmur - GI/Abdominal GI/Abdominal exam: Present: normal bowel sounds, soft. Absent: ascites, distended, mass, organomegaly, tenderness - Extremities Exam Extremities exam: Present: normal inspection, full ROM - Back Exam Back exam: Present: normal inspection - Neurological Exam Neurological exam: Present: alert, oriented X3 - Psychiatric Psychiatric exam: Present: normal affect, normal mood - Skin Skin exam: Present: normal color, warm, dry Results - Labs CBC & BMP: 10/19/16 04:23 10/19/16 04:23 Lab Results: I have reviewed the past 24 hour labs
[2016-10-19] MEDS: GLIMEPIRIDE 2 MG TABLET PO SCH ×2 (10:18→21:58)
[2016-10-19] MEDS: ASPIRIN EC 81 MG TABLET PO SCH (10:18)
[2016-10-19] MEDS: hydroCHLOROthiazide 12.5 MG CAPSULE PO SCH (10:19)
[2016-10-19] MEDS: VERAPAMIL SR 180 MG TABLET PO SCH (10:19)
[2016-10-19] MEDS: busPIRone 15 MG TABLET PO SCH ×2 (10:19→21:57)
[2016-10-19] MEDS: cloNIDine 0.1 MG TABLET PO SCH (10:19)
[2016-10-19] MEDS: MORPHINE ER 30 MG TABLET PO SCH ×2 (10:20→21:57)
[2016-10-19] MEDS: MAGNESIUM OXIDE 400 MG TABLET PO SCH ×3 (10:20→21:57)
[2016-10-19] MEDS: LISINOPRIL 20 MG TABLET PO SCH (10:21)
[2016-10-19] MEDS: SIMVASTATIN 10 MG TABLET PO SCH (10:22)
[2016-10-19] MEDS: POLYETHYLENE GLYCOL POWDER 17 GM PACK PO PRN (10:23)
[2016-10-19] MEDS: PANTOPRAZOLE 40 MG VIAL IV SCH ×2 (10:27→21:58)
[2016-10-19] MEDS: RIVAROXABAN 20 MG TABLET PO SCH (10:33)
[2016-10-19] MEDS: INSULIN REGULAR 100 UNIT/ML SUBCUT SCH ×4 (10:35→21:58)
[2016-10-19] MEDS: FLUCONAZOLE INJ 100 MG in IV BAG 1 EACH IV SCH (14:54)
[2016-10-19] MEDS: MYLANTA/LIDO VISC/NYST 180 ML BOTTLE SWISH/SWAL SCH ×2 (16:43→21:58)
--- NOTE | 2016-10-19 17:00 | Hospitalist Progress Note ---
Assessment and Plan - Time spent with patient Time spent with patient: Greater than 30 minutes (1) Odynophagia Status: Chronic Assessment and plan: 10/18/2016: Patient is a 66-year-old black female with history of odynophagia associated with esophageal ulcers. Histology of the biopsy specimen did not confirm malignancy. Patient underwent repeat endoscopy earlier today. Esophageal candidiasis reported but no other acute abnormalities. Fluconazole Rx ordered. 10/19/2016: Magic mouthwash prescribed for symptom relief. Add Carafate slurry if necessary. Current Visit: Yes (2) Atrial fibrillation Status: Chronic Assessment and plan: 10/18/2016: Paroxysmal atrial fibrillation with intermittent rapid ventricular rate. Patient did receive diltiazem infusion overnight for ventricular rate control. Patient is to titrate off diltiazem infusion on to oral medications that control her hypertension and ventricular rate. 10/19/2016: Controlled ventricular rate with regular rhythm on exam today. Continue current medical management including aspirin, Verapamil, (diltiazem infusion discontinued). Current Visit: Yes (3) Hypothyroidism Status: Chronic Assessment and plan: 10/18/2016: Patient received 25 mcg Synthroid supplementation daily. Check TSH and free T4 in a.m. Titrate Synthroid dose accordingly. 10/19/2016: TSH 0.669 and free T4 1.03. These measure within normal range. Continue current Synthroid supplementation dose 25 mcg daily. Current Visit: Yes (4) Acute kidney injury Status: Acute Assessment and plan: 10/19/2016: BUN and serum creatinine are trending toward normal range. Today measures 16 and 1.2 respectively with GFR 58. Recheck BMP in a.m. continue IV hydration. Current Visit: Yes (5) Dyslipidemia Status: Chronic Assessment and plan: 10/19/2016: Patient receives Zocor 10 mg p.o. q. evening. Check fasting lipid panel in a.m. Current Visit: Yes (6) Paroxysmal atrial fibrillation Status: Chronic Assessment and plan: 10/19/2016: Patient has a well-controlled ventricular rate. Continue current negative chronotropic medication combination. (Amiodarone and verapamil). Patient receives oral anticoagulation with Xarelto Current Visit: Yes (7) Chronic low back pain Status: Chronic Assessment and plan: 10/19/2016: Patient gives history of spinal stenosis. She prefers not to complete evaluation for surgical treatment. Continue supportive care. Current Visit: Yes (8) Medical Disability Status: Chronic Assessment and plan: 10/19/2016: Patient states that she is receiving medical disability since 1994. Current Visit: Yes Hospitalist: Subjective Interval history: 10/19/2016: Patient continues complaining of solid food and liquid dysphasia. I reviewed with patient findings reported on upper endoscopy yesterday. That it mouthwash to the Diflucan treatment. Consider addition of Carafate slurry if painful swallowing symptoms persist. Exam - Constitutional Vitals: Period Temp Pulse Resp BP Sys/Floyd Pulse Ox Last 24 Hr 97.1 F-99.0 F 53-92 18-20 112-117/58-68 96-100 General appearance: normal weight - Head Head exam: Present: normal inspection - Eye Eye exam: Present: EOMI - ENT ENT exam: Present: normal exam - Neck Neck exam: Absent: meningismus, tenderness - Respiratory Respiratory exam: Present: clear to auscultation bilaterally. Absent: rales, stridor, wheezes - Cardiovascular Cardiovascular exam: Present: regular rate and rhythm, other (No extrasystole) - GI/Abdominal GI/Abdominal exam: Present: normal bowel sounds, distended, soft. Absent: tenderness, rebound - Extremities Exam Extremities exam: Present: normal inspection. Absent: calf tenderness, edema - Back Exam Back exam: Absent: CVA tenderness (L), CVA tenderness (R) - Neurological Exam Neurological exam: Present: alert, oriented X3 - Psychiatric Psychiatric exam: Present: normal affect - Skin Skin exam: Present: normal color, warm, dry. Absent: rash Results - Labs CBC & BMP: 10/19/16 04:23 10/19/16 04:23
[2016-10-20] MEDS: SODIUM CHLORIDE 0.9% 1,000 ML IV SCH ×2 (05:58→08:01)
[2016-10-20 06:01] LABS: Basophils % 0.4 % (0.0-0.8); Eosinophils # 0.1 10*3/uL (0.0-0.87); Eosinophils % 1.1 % (0.00-10.9); Hematocrit 35.8 VOL% (35.7-47.0); Hemoglobin 11.6 GM/DL (12.0-16.0); Immature Granulocytes % 0.4 %; Immature Granulocytes Absolute 0.03 #; Lymphocytes # 2.9 10*3/uL (1.4-4.0); Lymphocytes % 41.2 % (21.3-54.2); Mean Corpuscular HGB Conc 32.4 GM/DL (32-36); Mean Corpuscular Hemoglobin 30 PG (27-34); Mean Platelet Volume 10.4 FL (9.6-12.0); Monocytes # 0.9 10*3/uL (0.11-0.8); Monocytes % 12.4 % (1.7-12.7); Neutrophils # 3.1 10*3/uL (1.4-7.4); Neutrophils % 44.5 % (38.7-73.9); Platelet Count 216 T/CUMM (130-400); Red Blood Count 3.85 MC/CUMM (3.8-5.5)
[2016-10-20] MEDS: LEVOTHYROXINE 25 MCG TABLET PO SCH (06:22)
[2016-10-20 06:27] LABS: Alanine Aminotransferase 21 U/L (13-56); Albumin 2.8 G/DL (3.4-5.0); Alkaline Phosphatase 72 U/L (45-117); Aspartate Amino Transferase 16 U/L (0-37); Bilirubin,Total < 0.39 MG/DL (0.2-1.0); Blood Urea Nitrogen 16 MG/DL (7-18); Calcium 8.3 MG/DL (8.5-10.1); Cholesterol 115 MG/DL (50-200); HDL Cholesterol 62 MG/DL (40-60); Osmolality,Calculated 280.1 MOS/KG (273-304); Potassium 4.9 MMOL/L (3.5-5.1); Risk Ratio 1.85; Sodium 142 MMOL/L (136-145); Total Protein 5.6 G/DL (6.4-8.3); Triglycerides 63 MG/DL (2-150); VLDL CHOLESTEROL 12.6 MG/DL
[2016-10-20 06:31] LABS: Glucose 40 MG/DL (74-106)
[2016-10-20] MEDS ORDERED: DEXTROSE 50% 25 GM/50 ML VIAL IV PRN (07:20)
[2016-10-20] MEDS ORDERED: GLUCAGON 1 MG VIAL IM PRN (07:20)
[2016-10-20] MEDS: MYLANTA/LIDO VISC/NYST 180 ML BOTTLE SWISH/SWAL SCH ×2 (07:34→12:18)
[2016-10-20] MEDS: INSULIN REGULAR 100 UNIT/ML SUBCUT SCH ×2 (07:37→12:20)
--- NOTE | 2016-10-20 09:36 | Gastrointestinal Progress Note ---
Assessment and Plan (1) Nausea & vomiting Status: Acute Assessment and plan: 10/20-continued improvements in nausea without vomiting. No abdominal pain. No pain with swallowing. Tolerating diet well. For possible discharge home today. Plan an addendum to followed by Dr. Harvey. 10/19-no complaints of nausea or vomiting. EGD findings noted as below. Diflucan has been initiated. Plan an addendum to followed by Dr. Harvey. 10/17-1-2 month history of nausea with smell of food as well as vomiting episodes due to dysphagia/odynophagia. 12 pound weight loss 2 weeks. EGD in September with findings noted as below with negative pathology. CT findings noted as below as well. Plan an addendum to followed by Dr. Harvey. Current Visit: Yes Gastroenterology - PN: Subj Interval history: CC: Odynophagia, nausea Patient is seen, awake and alert lying in bed. She states she had an uneventful night and denies any abdominal pain, nausea or vomiting at this time. She states she is still having bouts of nausea but states that they are less severe and less often. She is eating without difficulty and denies any pain or difficulty swallowing. Tolerating her diet well. Abdomen is soft, nontender. ROS: Denies shortness of breath or chest pain Exam (Progress Note) - Constitutional Vitals: Period Temp Pulse Resp BP Sys/Floyd Pulse Ox Last 24 Hr 97.8 F-99.0 F 53-81 18-20 114-133/54-66 96-99 General appearance: normal weight, no acute distress - Head Head exam: Present: normal inspection, normocephalic - Eye Eye exam: Present: other (Lids and conjunctivae are unremarkable). Absent: scleral icterus - ENT ENT exam: Present: normal exam, normal oropharynx - Neck Neck exam: Present: normal inspection - Respiratory Respiratory exam: Present: clear to auscultation bilaterally. Absent: rales, rhonchi, wheezes - Cardiovascular Cardiovascular exam: Present: regular rate and rhythm. Absent: diastolic murmur , JVD, systolic murmur - GI/Abdominal GI/Abdominal exam: Present: normal bowel sounds, soft. Absent: ascites, distended, mass, organomegaly, tenderness - Extremities Exam Extremities exam: Present: normal inspection, full ROM - Back Exam Back exam: Present: normal inspection - Neurological Exam Neurological exam: Present: alert, oriented X3 - Psychiatric Psychiatric exam: Present: normal affect, normal mood - Skin Skin exam: Present: normal color, warm, dry Results - Labs CBC & BMP: 10/20/16 05:09 10/20/16 05:09 Lab Results: I have reviewed the past 24 hour labs
[2016-10-20] MEDS: GLIMEPIRIDE 2 MG TABLET PO SCH (10:16)
[2016-10-20] MEDS: VERAPAMIL SR 180 MG TABLET PO SCH (10:17)
[2016-10-20] MEDS: ASPIRIN EC 81 MG TABLET PO SCH (10:17)
[2016-10-20] MEDS: busPIRone 15 MG TABLET PO SCH (10:17)
[2016-10-20] MEDS: MAGNESIUM OXIDE 400 MG TABLET PO SCH ×2 (10:18→14:21)
[2016-10-20] MEDS: hydroCHLOROthiazide 12.5 MG CAPSULE PO SCH (10:18)
[2016-10-20] MEDS: MORPHINE ER 30 MG TABLET PO SCH (10:18)
[2016-10-20] MEDS: cloNIDine 0.1 MG TABLET PO SCH (10:18)
[2016-10-20] MEDS: RIVAROXABAN 20 MG TABLET PO SCH (10:19)
[2016-10-20] MEDS: POLYETHYLENE GLYCOL POWDER 17 GM PACK PO PRN (10:19)
[2016-10-20] MEDS: SIMVASTATIN 10 MG TABLET PO SCH (10:19)
[2016-10-20] MEDS: LISINOPRIL 20 MG TABLET PO SCH (10:19)
[2016-10-20] MEDS: PANTOPRAZOLE 40 MG VIAL IV SCH (10:23)
--- NOTE | 2016-10-20 10:40 | Discharge Summary ---
Hospital Course - Hospital Course Hospital Course: Patient is a 66 yo Black female admitted to manage dysphagia. EGD confirmed bethany esophagitis. Patient's symptoms are improving as she receives diflucan and magic mouthwash. I'll add Carafate slurry. Patient is prepared for discharge home today. - Time spent with patient Time with patient DS: Greater than 30 minutes Diagnosis - Discharge Diagnosis (1) Acute on chronic respiratory failure with hypoxemia Status: Acute (2) Bethany esophagitis Status: Acute (3) Odynophagia Status: Chronic (4) Hypothyroidism Status: Chronic (5) Dyslipidemia Status: Chronic (6) Paroxysmal atrial fibrillation Status: Chronic (7) Chronic low back pain Status: Chronic (8) Medical Disability Status: Chronic (9) Type 2 diabetes mellitus Status: Acute (10) Elevated troponin I level Status: Acute (11) Stage III chronic kidney disease Status: Acute (12) Acute kidney injury Status: Acute (13) DJD (degenerative joint disease), thoracolumbar Status: Acute Specialty Discharge - Follow Up or Referrals - Speciality Discharge Instructions Gastroenterology Instructions: Schedule follow-up with Dr. Harvey within the next 2 weeks. Internal Medicine Instructions: Schedule follow-up with primary care provider Dr. Mesa next week. Discharge Plan - Discharge Data Disposition: Disch To Home/Self Care Condition at Discharge: Stable Discharge Diet: diabetic diet, low salt diet Activity: resume usual activities as tolerated Hygiene: no restrictions Weight Bearing at Discharge: full weight bearing Driving: no restrictions Contact your physician if you experience:: fever over 101, Shortness of breath - Discharge Medications Continue Rivaroxaban [Xarelto] 20 mg PO DAILY Simvastatin [Zocor] 10 mg PO DAILY Nitroglycerin Sl Tab [Nitrostat] 0.4 mg SL Q5M PRN PRN Reason: Chest Pain Magnesium Oxide 400 mg PO TID Lisinopril [Prinivil] 20 mg PO DAILY Levothyroxine Tab [Synthroid Tab] 25 mcg PO DAILY@0700 busPIRone [Buspar] 15 mg PO BID Baclofen Tab [Lioresal] 10 mg PO TID PRN PRN Reason: Spasms Aspirin EC Tab 81 mg PO DAILY Verapamil HCl [Verapamil ER Tab] 180 mg PO DAILY cloNIDine TAB [Catapres Tab] 0.1 mg PO DAILY Varenicline [Chantix] 1 mg PO BID Discontinued Omeprazole 20 mg PO DAILY Morphine Sulfate [Morphine ER Cap] 60 mg PO Q12H hydroCHLOROthiazide [Microzide] 12.5 mg PO DAILY Glimepiride 2 mg PO BID Zolpidem Tartrate 10 mg PO BEDTIME PRN PRN Reason: Insomnia Polyethylene Glycol Powder [Miralax] 17 gm PO DAILY PRN PRN Reason: Constipation Hydrocodone/Acetaminophen [Hydrocodon-Acetaminophn 10-325] 1 each PO TID - Follow Up or Referral Follow Up: Hi Mesa MD [Primary Care Provider] - Miguel Harvey MD [Physician] - - Forms/Instructions Additional Discharge Instructions: prescription written for Diflucan 200 mg p.o. daily 14 days. and Carafate slurry 1 g p.o. 4 times daily 2 weeks. Amaryl dose decreased to 2 mg p.o. daily. (previously twice daily) Exam - Constitutional Vitals: Period Temp Pulse Resp BP Sys/Floyd Pulse Ox Last 24 Hr 97.8 F-99.0 F 53-81 18-20 114-133/54-66 96-99 General appearance: normal weight - Head Head exam: Present: normal inspection - Eye Eye exam: Present: EOMI - ENT ENT exam: Present: normal exam - Neck Neck exam: Absent: meningismus, tenderness - Respiratory Respiratory exam: Present: clear to auscultation bilaterally. Absent: rales, rhonchi, wheezes - Cardiovascular Cardiovascular exam: Present: regular rate and rhythm - GI/Abdominal GI/Abdominal exam: Present: normal bowel sounds, soft. Absent: tenderness, rebound - Extremities Exam Extremities exam: Present: normal inspection. Absent: calf tenderness, edema - Back Exam Back exam: Absent: CVA tenderness (L), CVA tenderness (R) - Neurological Exam Neurological exam: Present: alert, oriented X3 - Psychiatric Psychiatric exam: Present: normal affect - Skin Skin exam: Present: normal color, warm, dry. Absent: rash Discharge Results Procedures and tests throughout hospitalization: Pending Orders 10/16/16 20:51 Blood Culture Stat 10/17/16 01:06 Stool for WBCs Routine stool [C. Diff Toxins A & B] Routine Labs on day of discharge: Labs from last 24 hours 10/20/16 10/20/16 10/20/16 07:34 06:48 05:09 WBC RBC Hgb Hct MCV MCH MCHC RDW Plt Count MPV Neut % (Auto) Lymph % (Auto) Dare % (Auto) Eos % (Auto) Baso % (Auto) Neut # (Auto) Lymph # (Auto) Dare # (Auto) Eos # (Auto) Baso # (Auto) Immature Gran % Nucleated RBC % Immature Gran # Nucleated RBCs # Immature Plt Fraction Sodium 142 Potassium 4.9 Chloride 109 H Carbon Dioxide 29 Anion Gap 8.9 BUN 16 Creatinine 1.30 H GFR Calculation 53 BUN/Creatinine Ratio 12.00 Glucose 40 L* POC Glucose 75 78 Calculated Osmolality 280.1 Calcium 8.3 L Total Bilirubin < 0.39 AST 16 ALT 21 Alkaline Phosphatase 72 Total Protein 5.6 L Albumin 2.8 L Globulin 2.8 Albumin/Globulin Ratio 1.0 L Triglycerides 63 Cholesterol 115 LDL Cholesterol 39.0 VLDL Cholesterol 12.6 HDL Cholesterol 62 H Heart Disease Risk Ratio 1.85 10/20/16 10/19/16 10/19/16 05:09 19:29 15:55 WBC 7.0 RBC 3.85 Hgb 11.6 L Hct 35.8 MCV 93.0 MCH 30 MCHC 32.4 RDW 13.0 Plt Count 216 MPV 10.4 Neut % (Auto) 44.5 Lymph % (Auto) 41.2 Dare % (Auto) 12.4 Eos % (Auto) 1.1 Baso % (Auto) 0.4 Neut # (Auto) 3.1 Lymph # (Auto) 2.9 Dare # (Auto) 0.9 H Eos # (Auto) 0.1 Baso # (Auto) 0.0 Immature Gran % 0.4 Nucleated RBC % 0.0 Immature Gran # 0.03 Nucleated RBCs # 0.00 Immature Plt Fraction 0.0 Sodium Potassium Chloride Carbon Dioxide Anion Gap BUN Creatinine GFR Calculation BUN/Creatinine Ratio Glucose POC Glucose 99 137 H Calculated Osmolality Calcium Total Bilirubin AST ALT Alkaline Phosphatase Total Protein Albumin Globulin Albumin/Globulin Ratio Triglycerides Cholesterol LDL Cholesterol VLDL Cholesterol HDL Cholesterol Heart Disease Risk Ratio 10/19/16 11:54 WBC RBC Hgb Hct MCV MCH MCHC RDW Plt Count MPV Neut % (Auto) Lymph % (Auto) Dare % (Auto) Eos % (Auto) Baso % (Auto) Neut # (Auto) Lymph # (Auto) Dare # (Auto) Eos # (Auto) Baso # (Auto) Immature Gran % Nucleated RBC % Immature Gran # Nucleated RBCs # Immature Plt Fraction Sodium Potassium Chloride Carbon Dioxide Anion Gap BUN Creatinine GFR Calculation BUN/Creatinine Ratio Glucose POC Glucose 117 H Calculated Osmolality Calcium Total Bilirubin AST ALT Alkaline Phosphatase Total Protein Albumin Globulin Albumin/Globulin Ratio Triglycerides Cholesterol LDL Cholesterol VLDL Cholesterol HDL Cholesterol Heart Disease Risk Ratio Preliminary micro results at discharge 10/16/16 20:51 Blood Culture - Preliminary Blood No growth at 3 days 10/16/16 20:32 Blood Culture - Preliminary Blood No growth at 3 days - Imaging and Cardiology Procedure: CT Abdomen and Pelvis: other (Abdomen and pelvic CT with IV contrast) , CT - chest: other - Additional Comments Schedule follow-up with Dr. Harvey within the next 2 weeks. Chest: Atheromatous disease and tortuosity of thoracic aorta noted. Coronary artery calcifications are present as well. Heart size is normal. Left atrial enlargement noted. Pulmonary artery is dilated measuring 36 mm diameter. No pulmonary arterial filling defects identified to the segmental level. Thin-walled cyst is present within the medial right lung base. Lungs are otherwise clear. Right hemidiaphragm is elevated. The volume of the right hemithorax is less than the left which may be congenital in nature. This finding was present on the prior exam. Endplate degenerative changes of the thoracic spine are present, with endplate reactive sclerosis and osteophytosis at T9-10. No infiltrative bone lesion seen. Abdomen: Atheromatous disease of the aorta and mesenteric vasculature is again shown. No occlusive disease identified. Cholecystectomy clips are present. Liver, spleen, pancreas, adrenal glands are within normal limits. In general, left kidney appears somewhat hypoperfused when compared to the right although kidneys are symmetric in size. The degree of enhancement in the left is much less than the right. There is cortical scarring at the upper pole the right kidney, chronic. No solid renal masses shown. No bowel obstruction. No free fluid, free air or lymphadenopathy. Wall of cecum appears thick walled. Adjacent to the tip of the cecum heart to small soft tissue densities, one 18 mm diameter and the other 12 mm diameter. These were present on the prior examination and are unchanged. Pelvis: Uterus is absent. Urinary bladder and rectosigmoid colon appear unremarkable. Normal-sized appendix without inflammation. No lymphadenopathy. No free fluid or free air. Degenerative changes of the lumbar spine are moderately severe, except for severe disc space narrowing at L3-4 and L5-S1. Impression: 1. Extensive calcified atheromatous disease. Slight hypoperfusion of the left kidney when compared to the right suggest renal artery stenosis, without renal volume loss. Consider nuclear medicine MAG3 scan to evaluate comparative perfusion. Cortical scarring upper pole right kidney. 2. Dilated main pulmonary artery is 36 mm, and enlargement of the left atrium. Query mitral valve disease. Echocardiography is suggested. 3. Slightly unusual appearing asymmetry of the size of the hemithoraces with elevation right hemidiaphragm and rightward shift midline structures with a right lung smaller than the left. There is a thin-walled cyst at the right lung base as well, also chronic. Suspect this is congenital. 4. Minimal thickening of the wall of the cecum without significant adjacent inflammation. Normal-sized appendix. 2 small soft tissue densities adjacent to the cecal wall are present but stable since 2010 and therefore benign. Is there history of remote diverticulitis? 5. Degenerative changes thoracolumbar spine. DS: Provider Date of admission: 10/16/16 23:16 Primary care physician: Hi Mesa MD Attending physician on admission: Lucian Marrufo MD Consults: 10/16/16 23:15 Consult to Physician [CONS] Routine Comment: Consulting Provider: Miguel Harvey Consult to Specialist Group: Gastroenterology When should Consulting Provider be notified: In am Consult Notification Comment: LEFT MESSAGE AT 0925 OF CONSULT 10/17/16 01:38 Consult to Dietitian [CONS] Routine Reason for Dietitian: Other Consult Comment: Admission criteria for poor appetite 10/19/16 15:09 Consult to Pastoral Services [CONS] Routine Comment: pt loss daughter approx 1 year ago Pastoral Screen: Declines Visit Discharging clinician: Israel Burrell III Expected date of discharge: 10/20/16
[2016-10-20 11:47] VITALS: BP 151/70
[2016-10-20] MEDS: FLUCONAZOLE INJ 100 MG in IV BAG 1 EACH IV SCH (14:22)
== END 2016-10-20 16:01 | disposition home or self-care (01) | DRG 392 ==
LOC: N.ED 19:57 → N.EDINP 23:16 → SUATTDRO 23:16 → N.TELES 10-17 00:26
PROVIDERS: ADMIT Internal Medicine; ATTEND Internal Medicine

== ENCOUNTER 2017-06-06 20:32 | Inpatient (IN) ==
[2017-06-06] MEDS ORDERED: ONDANSETRON 4 MG/2 ML VIAL IV STA (21:00)
[2017-06-06] MEDS ORDERED: DILTIAZEM 50 MG/10 ML VIAL IV STA (21:00)
[2017-06-06] MEDS ORDERED: MORPHINE 2 MG/1 ML SYRINGE IV STA (21:00)
[2017-06-06] MEDS ORDERED: ONDANSETRON 4 MG/2 ML VIAL ONE (21:15)
[2017-06-06] MEDS ORDERED: DILTIAZEM 50 MG/10 ML VIAL IV ONE (21:16)
[2017-06-06] MEDS ORDERED: MORPHINE 4 MG/1 ML VIAL ONE (21:16)
[2017-06-06 21:40] LABS: Basophils % 0.2 % (0.0-0.8); Eosinophils % 0.5 % (0.00-10.9); Hematocrit 30.3 VOL% (35.7-47.0); Hemoglobin 9.6 GM/DL (12.0-16.0); Immature Granulocytes % 0.3 %; Immature Granulocytes Absolute 0.03 #; Lymphocytes # 1.9 10*3/uL (1.4-4.0); Lymphocytes % 21.4 % (21.3-54.2); Mean Corpuscular HGB Conc 31.7 GM/DL (32-36); Mean Corpuscular Hemoglobin 29 PG (27-34); Mean Corpuscular Volume 90.2 FL (87-102); Mean Platelet Volume 11.1 FL (9.6-12.0); Monocytes # 0.7 10*3/uL (0.11-0.8); NRBC # 0.02 10*3/uL; Neutrophils # 6.1 10*3/uL (1.4-7.4); Neutrophils % 69.6 % (38.7-73.9); Platelet Count 200 T/CUMM (130-400); Red Blood Count 3.36 MC/CUMM (3.8-5.5); Red Cell Distribution Width 14.6 % (9.3-17.3); White Blood Count 8.7 T/CUMM (4-12)
[2017-06-06 21:42] LABS: Troponin I Only < 0.015 NG/ML (0.00-0.045)
[2017-06-06] MEDS ORDERED: METOPROLOL TARTRATE 5 MG/5 ML VIAL IV STA (21:42)
[2017-06-06 21:51] LABS: INR 1.1; PT Patient Result 11.1 SECS
[2017-06-06 21:53] LABS: Barbiturates Screen,Urine Negative (Negative); Benzodiazepines Screen,Urine Negative (Negative); Cannabinoid Screen,Urine Negative (Negative); Opiate Screen,Urine Positive (Negative); Phencyclidine Screen,Urine Negative (Negative)
[2017-06-06 21:53] LABS: Alanine Aminotransferase 35 U/L (13-56); Albumin 3.6 G/DL (3.4-5.0); Alkaline Phosphatase 123 U/L (45-117); Aspartate Amino Transferase 32 U/L (0-37); Blood Urea Nitrogen 26 MG/DL (7-18); Calcium 8.9 MG/DL (8.5-10.1); Glucose 98 MG/DL (74-106); Osmolality,Calculated 285.3 MOS/KG (273-304); Potassium 3.5 MMOL/L (3.5-5.1); Sodium 141 MMOL/L (136-145); Thyroid Stimulating Hormone 0.362 uIU/ml (0.358-3.74); Total Protein 6.9 G/DL (6.4-8.3); Troponin I Only < 0.015 NG/ML (0.00-0.045)
[2017-06-06] MEDS ORDERED: METOPROLOL TARTRATE 5 MG/5 ML VIAL IV ONE (22:43)
[2017-06-06] MEDS ORDERED: LEVOFLOXACIN INJ 750 MG in PREMIX 1 EACH IV STA (22:56)
[2017-06-06] MEDS ORDERED: LEVOFLOXACIN INJ 150 ML IV ONE (23:33)
[2017-06-06 23:34] LABS: Apearance,Urine CLEAR (Clear); Bilirubin,Urine Negative (Negative); Blood, Urine Negative (Negative); Glucose,Urine (UA) Negative (Negative); Ketones,Urine Negative (Negative); Nitrite,Urine Negative (Negative); Protein,Urine Negative; RBC,Urine 1 /HPF (0-4); Squamous Epithelial Cell,Urine Occasional /HPF (0-10); Urine Color Straw (Yellow); Urine Specific Gravity 1.009 (1.001-1.035); Urine Urobilinogen < 2.0 EU/DL (0.2-1.0); WBC,Urine <1 /HPF (0-6)
[2017-06-06] MEDS ORDERED: DILTIAZEM INJ 100 MG in SODIUM CHLORIDE 0.9% 100 ML IV SCH (23:45)
[2017-06-07] MEDS ORDERED: DILTIAZEM 100 MG VIAL.ADD IV ONE (00:02)
[2017-06-07] MEDS ORDERED: DILTIAZEM INJ 100 MG in SODIUM CHLORIDE 0.9% 100 ML IV SCH (01:11)
[2017-06-07] MEDS ORDERED: ONDANSETRON 4 MG/2 ML VIAL IV PRN (01:11)
[2017-06-07] MEDS ORDERED: LEVOFLOXACIN INJ 750 MG in PREMIX 1 EACH IV SCH (01:11)
[2017-06-07] MEDS ORDERED: DEXTROSE 50% 25 GM/50 ML VIAL IV PRN (01:11)
[2017-06-07] MEDS ORDERED: GLUCAGON 1 MG VIAL IM PRN (01:11)
[2017-06-07] MEDS ORDERED: ALBUTEROL/IPRATROPIUM 3 ML NEB RESP TX PRN (01:11)
[2017-06-07] MEDS: MORPHINE 4 MG/1 ML VIAL IV PRN ×2 (01:43→06:48)
[2017-06-07] MEDS: LEVOTHYROXINE 25 MCG TABLET PO SCH (06:48)
[2017-06-07] MEDS: INSULIN REGULAR 100 UNIT/ML SUBCUT SCH ×4 (08:11→21:07)
[2017-06-07] MEDS: BACLOFEN 10 MG TABLET PO SCH ×3 (09:37→21:07)
[2017-06-07] MEDS: PANTOPRAZOLE 40 MG TABLET PO SCH (09:37)
[2017-06-07] MEDS: GABAPENTIN 300 MG CAPSULE PO SCH ×3 (09:37→21:12)
[2017-06-07] MEDS: GLIMEPIRIDE 4 MG TABLET PO SCH (09:37)
[2017-06-07] MEDS: LISINOPRIL 20 MG TABLET PO SCH (09:37)
[2017-06-07] MEDS ORDERED: NITROGLYCERIN TRANSLING PRN (09:46)
[2017-06-07] MEDS ORDERED: POTASSIUM CHLORIDE 20 MEQ TABLET PO PRN (12:01)
[2017-06-07] MEDS ORDERED: MAGNESIUM SULF RIDER 4 GM in PREMIX 1 EACH IV PRN (12:02)
[2017-06-07] MEDS ORDERED: MAGNESIUM SULF RIDER 2 GM in PREMIX 1 EACH IV PRN (12:02)
[2017-06-07] MEDS ORDERED: NALOXONE 0.4 MG/ML VIAL SUBCUT PRN (13:24)
[2017-06-07] MEDS ORDERED: MORPHINE 4 MG/1 ML VIAL IV PRN (13:26)
[2017-06-07] MEDS: METOPROLOL SUCCINATE XL 50 MG TABLET PO SCH (13:28)
[2017-06-07] MEDS: methylPREDNISolone SOD SUC 40 MG/1 ML VIAL IV SCH (14:19)
[2017-06-07] MEDS: RIVAROXABAN 20 MG TABLET PO SCH (17:06)
[2017-06-07] MEDS ORDERED: METOPROLOL SUCCINATE XL 25 MG TABLET PO ONE (19:49)
[2017-06-07] MEDS: MEMANTINE 5 MG TABLET PO SCH (21:06)
[2017-06-07] MEDS: AMITRIPTYLINE 25 MG TABLET PO SCH (21:06)
[2017-06-07] MEDS: busPIRone 15 MG TABLET PO SCH (21:07)
[2017-06-07] MEDS: cloNIDine 0.1 MG TABLET PO SCH (21:07)
[2017-06-07] MEDS: MORPHINE ER 30 MG TABLET PO SCH (21:07)
[2017-06-07] MEDS: VERAPAMIL SR 180 MG TABLET PO SCH (21:07)
[2017-06-07] MEDS: SIMVASTATIN 10 MG TABLET PO SCH (21:07)
[2017-06-07] MEDS: LEVOFLOXACIN INJ 750 MG in PREMIX 1 EACH IV SCH (23:52)
[2017-06-08] MEDS: methylPREDNISolone SOD SUC 40 MG/1 ML VIAL IV SCH ×2 (01:29→14:29)
[2017-06-08 05:38] LABS: Basophils % 0.1 % (0.0-0.8); Hematocrit 34.9 VOL% (35.7-47.0); Immature Granulocytes % 0.8 %; Immature Granulocytes Absolute 0.06 #; Lymphocytes # 0.9 10*3/uL (1.4-4.0); Lymphocytes % 11.5 % (21.3-54.2); Mean Corpuscular HGB Conc 31.5 GM/DL (32-36); Mean Corpuscular Hemoglobin 28 PG (27-34); Mean Corpuscular Volume 90.2 FL (87-102); Mean Platelet Volume 10.6 FL (9.6-12.0); Monocytes # 0.3 10*3/uL (0.11-0.8); Monocytes % 4.3 % (1.7-12.7); NRBC # 0.05 10*3/uL; Neutrophils # 6.6 10*3/uL (1.4-7.4); Neutrophils % 83.3 % (38.7-73.9); Platelet Count 229 T/CUMM (130-400); Red Blood Count 3.87 MC/CUMM (3.8-5.5); Red Cell Distribution Width 14.3 % (9.3-17.3); White Blood Count 7.9 T/CUMM (4-12)
[2017-06-08] MEDS: LEVOTHYROXINE 25 MCG TABLET PO SCH (05:51)
[2017-06-08 06:04] LABS: Calcium 9.9 MG/DL (8.5-10.1)
[2017-06-08 06:05] LABS: Osmolality,Calculated 284.5 MOS/KG (273-304); Potassium 4.7 MMOL/L (3.5-5.1)
[2017-06-08 06:09] LABS: Risk Ratio 1.97; VLDL CHOLESTEROL 14.2 MG/DL
[2017-06-08] MEDS: INSULIN REGULAR 100 UNIT/ML SUBCUT SCH ×4 (07:44→21:08)
[2017-06-08] MEDS: hydroCHLOROthiazide 12.5 MG CAPSULE PO SCH (10:02)
[2017-06-08] MEDS: GLIMEPIRIDE 4 MG TABLET PO SCH (10:02)
[2017-06-08] MEDS: GABAPENTIN 300 MG CAPSULE PO SCH ×4 (10:02→21:02)
[2017-06-08] MEDS: LISINOPRIL 20 MG TABLET PO SCH (10:02)
[2017-06-08] MEDS: BACLOFEN 10 MG TABLET PO SCH ×3 (10:02→20:59)
[2017-06-08] MEDS: busPIRone 15 MG TABLET PO SCH ×2 (10:02→20:59)
[2017-06-08] MEDS: MEMANTINE 5 MG TABLET PO SCH ×2 (10:02→20:59)
[2017-06-08] MEDS: MORPHINE ER 30 MG TABLET PO SCH ×2 (10:03→20:58)
[2017-06-08] MEDS: TAMSULOSIN 0.4 MG CAPSULE PO SCH (10:03)
[2017-06-08] MEDS: METOPROLOL SUCCINATE XL 50 MG TABLET PO SCH (10:03)
[2017-06-08] MEDS: ASPIRIN EC 81 MG TABLET PO SCH (10:03)
[2017-06-08] MEDS: PANTOPRAZOLE 40 MG TABLET PO SCH (10:03)
[2017-06-08] MEDS ORDERED: LIDOCAINE 1%/EPI INJ 20 ML VIAL ONE (10:50)
[2017-06-08] MEDS ORDERED: BUPIVACAINE MPF 0.25% /EPI 30 ML VIAL ONE (10:50)
[2017-06-08] MEDS ORDERED: HEPARIN 5,000 UNIT/1 ML VIAL ONE (10:50)
[2017-06-08] MEDS ORDERED: SPIRONOLACTONE 25 MG TABLET PO ONE (12:01)
[2017-06-08] MEDS: VANCOMYCIN INJ 1,250 MG in SODIUM CHLORIDE 0.9% 250 ML IV SCH (12:26)
[2017-06-08] MEDS ORDERED: ACETAMINOPHEN 325 MG TABLET PO PRN (14:33)
[2017-06-08] MEDS: RIVAROXABAN 20 MG TABLET PO SCH (16:53)
[2017-06-08] MEDS: VERAPAMIL SR 180 MG TABLET PO SCH (20:58)
[2017-06-08] MEDS: AMITRIPTYLINE 25 MG TABLET PO SCH (20:59)
[2017-06-08] MEDS: SIMVASTATIN 10 MG TABLET PO SCH (20:59)
[2017-06-08] MEDS: cloNIDine 0.1 MG TABLET PO SCH (20:59)
[2017-06-08] MEDS: SPIRONOLACTONE 25 MG TABLET PO SCH (20:59)
[2017-06-08] MEDS: ZALEPLON 5 MG CAPSULE PO PRN (20:59)
[2017-06-08] MEDS ORDERED: SPIRONOLACTONE 25 MG TABLET PO SCH (21:00)
[2017-06-08] MEDS: LEVOFLOXACIN INJ 750 MG in PREMIX 1 EACH IV SCH (22:19)
[2017-06-09] MEDS: methylPREDNISolone SOD SUC 40 MG/1 ML VIAL IV SCH ×2 (01:48→13:47)
[2017-06-09] MEDS: VANCOMYCIN INJ 1,250 MG in SODIUM CHLORIDE 0.9% 250 ML IV SCH ×2 (01:48→13:47)
[2017-06-09 05:32] LABS: Basophils % 0.1 % (0.0-0.8); Hematocrit 30.5 VOL% (35.7-47.0); Hemoglobin 9.7 GM/DL (12.0-16.0); Immature Granulocytes Absolute 0.12 #; Lymphocytes % 8.8 % (21.3-54.2); Mean Corpuscular HGB Conc 31.8 GM/DL (32-36); Mean Corpuscular Hemoglobin 29 PG (27-34); Mean Corpuscular Volume 90.2 FL (87-102); Mean Platelet Volume 10.5 FL (9.6-12.0); Monocytes # 0.5 10*3/uL (0.11-0.8); NRBC # 0.03 10*3/uL; Neutrophils # 9.9 10*3/uL (1.4-7.4); Neutrophils % 86.1 % (38.7-73.9); Platelet Count 207 T/CUMM (130-400); Red Blood Count 3.38 MC/CUMM (3.8-5.5); Red Cell Distribution Width 14.2 % (9.3-17.3); White Blood Count 11.5 T/CUMM (4-12)
[2017-06-09 06:17] LABS: Calcium 9.4 MG/DL (8.5-10.1); Osmolality,Calculated 284.8 MOS/KG (273-304); Potassium 5.3 MMOL/L (3.5-5.1)
[2017-06-09] MEDS: LEVOTHYROXINE 25 MCG TABLET PO SCH (06:37)
[2017-06-09] MEDS: METOPROLOL SUCCINATE XL 50 MG TABLET PO SCH (09:22)
[2017-06-09] MEDS: SPIRONOLACTONE 25 MG TABLET PO SCH ×2 (09:22→22:00)
[2017-06-09] MEDS: LISINOPRIL 20 MG TABLET PO SCH (09:22)
[2017-06-09] MEDS: TAMSULOSIN 0.4 MG CAPSULE PO SCH (09:23)
[2017-06-09] MEDS: hydroCHLOROthiazide 12.5 MG CAPSULE PO SCH (09:23)
[2017-06-09] MEDS: GLIMEPIRIDE 4 MG TABLET PO SCH (09:23)
[2017-06-09] MEDS: MEMANTINE 5 MG TABLET PO SCH ×2 (09:23→22:00)
[2017-06-09] MEDS: BACLOFEN 10 MG TABLET PO SCH ×3 (09:23→21:58)
[2017-06-09] MEDS: MORPHINE ER 30 MG TABLET PO SCH ×2 (09:23→21:58)
[2017-06-09] MEDS: ASPIRIN EC 81 MG TABLET PO SCH (09:24)
[2017-06-09] MEDS: PANTOPRAZOLE 40 MG TABLET PO SCH (09:24)
[2017-06-09] MEDS: GABAPENTIN 300 MG CAPSULE PO SCH ×3 (09:24→21:59)
[2017-06-09] MEDS: INSULIN REGULAR 100 UNIT/ML SUBCUT SCH ×4 (09:24→22:01)
[2017-06-09] MEDS: busPIRone 15 MG TABLET PO SCH ×2 (09:26→21:58)
[2017-06-09] MEDS: RIVAROXABAN 20 MG TABLET PO SCH (17:13)
[2017-06-09] MEDS ORDERED: METOPROLOL SUCCINATE XL 50 MG TABLET PO SCH (21:00)
[2017-06-09] MEDS: SIMVASTATIN 10 MG TABLET PO SCH (21:58)
[2017-06-09] MEDS: ZALEPLON 5 MG CAPSULE PO PRN (21:58)
[2017-06-09] MEDS: cloNIDine 0.1 MG TABLET PO SCH (21:59)
[2017-06-09] MEDS: AMITRIPTYLINE 25 MG TABLET PO SCH (22:00)
[2017-06-09] MEDS: VERAPAMIL SR 180 MG TABLET PO SCH (22:05)
[2017-06-09] MEDS: LEVOFLOXACIN INJ 750 MG in PREMIX 1 EACH IV SCH (22:44)
[2017-06-09] MEDS ORDERED: METOPROLOL SUCCINATE XL 25 MG TABLET PO ONE (22:47)
[2017-06-10] MEDS: methylPREDNISolone SOD SUC 40 MG/1 ML VIAL IV SCH ×2 (01:00→15:25)
[2017-06-10] MEDS: VANCOMYCIN INJ 1,250 MG in SODIUM CHLORIDE 0.9% 250 ML IV SCH ×2 (01:02→18:36)
[2017-06-10 04:41] LABS: Basophils % 0.1 % (0.0-0.8); Hematocrit 32.6 VOL% (35.7-47.0); Hemoglobin 10.4 GM/DL (12.0-16.0); Immature Granulocytes % 1.2 %; Immature Granulocytes Absolute 0.15 #; Lymphocytes # 1.2 10*3/uL (1.4-4.0); Lymphocytes % 10.1 % (21.3-54.2); Mean Corpuscular HGB Conc 31.9 GM/DL (32-36); Mean Corpuscular Hemoglobin 29 PG (27-34); Mean Corpuscular Volume 90.6 FL (87-102); Monocytes # 0.5 10*3/uL (0.11-0.8); Monocytes % 4.5 % (1.7-12.7); NRBC # 0.06 10*3/uL; Neutrophils # 10.1 10*3/uL (1.4-7.4); Neutrophils % 84.1 % (38.7-73.9); Platelet Count 241 T/CUMM (130-400); Red Cell Distribution Width 14.4 % (9.3-17.3)
[2017-06-10 05:14] LABS: Calcium 8.9 MG/DL (8.5-10.1); Osmolality,Calculated 286.4 MOS/KG (273-304); Potassium 4.1 MMOL/L (3.5-5.1)
[2017-06-10] MEDS: LEVOTHYROXINE 25 MCG TABLET PO SCH (05:34)
[2017-06-10] MEDS: hydroCHLOROthiazide 12.5 MG CAPSULE PO SCH (10:40)
[2017-06-10] MEDS: ASPIRIN EC 81 MG TABLET PO SCH (10:40)
[2017-06-10] MEDS: SPIRONOLACTONE 25 MG TABLET PO SCH ×2 (10:40→21:10)
[2017-06-10] MEDS: MORPHINE ER 30 MG TABLET PO SCH ×2 (10:40→21:57)
[2017-06-10] MEDS: METOPROLOL SUCCINATE XL 100 MG TABLET PO SCH ×2 (10:40→21:11)
[2017-06-10] MEDS: MEMANTINE 5 MG TABLET PO SCH ×2 (10:40→21:09)
[2017-06-10] MEDS: BACLOFEN 10 MG TABLET PO SCH ×3 (10:40→21:09)
[2017-06-10] MEDS: busPIRone 15 MG TABLET PO SCH ×2 (10:41→21:12)
[2017-06-10] MEDS: PANTOPRAZOLE 40 MG TABLET PO SCH (10:41)
[2017-06-10] MEDS: TAMSULOSIN 0.4 MG CAPSULE PO SCH (10:41)
[2017-06-10] MEDS: GABAPENTIN 300 MG CAPSULE PO SCH ×2 (10:41→21:11)
[2017-06-10] MEDS: GLIMEPIRIDE 4 MG TABLET PO SCH (10:41)
[2017-06-10] MEDS: INSULIN REGULAR 100 UNIT/ML SUBCUT SCH ×4 (11:22→21:09)
[2017-06-10] MEDS: FUROSEMIDE 20 MG TABLET PO SCH (12:26)
[2017-06-10] MEDS: LISINOPRIL 20 MG TABLET PO SCH (12:39)
[2017-06-10] MEDS ORDERED: DIGOXIN 0.125 MG TABLET PO ONE (13:46)
[2017-06-10] MEDS: RIVAROXABAN 20 MG TABLET PO SCH (16:19)
[2017-06-10] MEDS: SIMVASTATIN 10 MG TABLET PO SCH (21:10)
[2017-06-10] MEDS: cloNIDine 0.1 MG TABLET PO SCH (21:12)
[2017-06-10] MEDS: AMITRIPTYLINE 25 MG TABLET PO SCH (21:13)
[2017-06-10] MEDS: VERAPAMIL SR 180 MG TABLET PO SCH (21:56)
[2017-06-10] MEDS: ZALEPLON 5 MG CAPSULE PO PRN (21:57)
[2017-06-10] MEDS: LEVOFLOXACIN INJ 750 MG in PREMIX 1 EACH IV SCH (23:15)
[2017-06-11] MEDS: methylPREDNISolone SOD SUC 40 MG/1 ML VIAL IV SCH ×2 (01:20→14:50)
[2017-06-11 05:26] LABS: Basophils % 0.2 % (0.0-0.8); Eosinophils % 0.1 % (0.00-10.9); Hematocrit 35.4 VOL% (35.7-47.0); Hemoglobin 10.8 GM/DL (12.0-16.0); Immature Granulocytes % 1.2 %; Immature Granulocytes Absolute 0.13 #; Lymphocytes # 1.3 10*3/uL (1.4-4.0); Lymphocytes % 11.9 % (21.3-54.2); Mean Corpuscular HGB Conc 30.5 GM/DL (32-36); Mean Corpuscular Hemoglobin 28 PG (27-34); Mean Corpuscular Volume 91.2 FL (87-102); Mean Platelet Volume 10.4 FL (9.6-12.0); Monocytes # 0.5 10*3/uL (0.11-0.8); Monocytes % 4.3 % (1.7-12.7); NRBC # 0.07 10*3/uL; Neutrophils # 9.3 10*3/uL (1.4-7.4); Neutrophils % 82.3 % (38.7-73.9); Platelet Count 262 T/CUMM (130-400); Red Blood Count 3.88 MC/CUMM (3.8-5.5); Red Cell Distribution Width 14.6 % (9.3-17.3); White Blood Count 11.3 T/CUMM (4-12)
[2017-06-11] MEDS: LEVOTHYROXINE 25 MCG TABLET PO SCH (05:51)
[2017-06-11 05:57] LABS: Calcium 9.1 MG/DL (8.5-10.1); Osmolality,Calculated 289.4 MOS/KG (273-304); Potassium 4.6 MMOL/L (3.5-5.1)
[2017-06-11] MEDS: BACLOFEN 10 MG TABLET PO SCH ×3 (09:20→21:37)
[2017-06-11] MEDS: MEMANTINE 5 MG TABLET PO SCH ×2 (09:20→21:36)
[2017-06-11] MEDS: SPIRONOLACTONE 25 MG TABLET PO SCH ×2 (09:20→21:36)
[2017-06-11] MEDS: LISINOPRIL 20 MG TABLET PO SCH (09:20)
[2017-06-11] MEDS: GABAPENTIN 300 MG CAPSULE PO SCH ×2 (09:20→21:33)
[2017-06-11] MEDS: hydroCHLOROthiazide 12.5 MG CAPSULE PO SCH (09:20)
[2017-06-11] MEDS: TAMSULOSIN 0.4 MG CAPSULE PO SCH (09:20)
[2017-06-11] MEDS: MORPHINE ER 30 MG TABLET PO SCH ×2 (09:21→21:37)
[2017-06-11] MEDS: METOPROLOL SUCCINATE XL 100 MG TABLET PO SCH ×2 (09:21→21:36)
[2017-06-11] MEDS: ASPIRIN EC 81 MG TABLET PO SCH (09:21)
[2017-06-11] MEDS: busPIRone 15 MG TABLET PO SCH ×2 (09:22→21:33)
[2017-06-11] MEDS: GLIMEPIRIDE 4 MG TABLET PO SCH (09:22)
[2017-06-11] MEDS: cloNIDine 0.1 MG TABLET PO SCH ×2 (09:22→21:36)
[2017-06-11] MEDS: FUROSEMIDE 20 MG TABLET PO SCH (09:27)
[2017-06-11] MEDS: PANTOPRAZOLE 40 MG TABLET PO SCH (09:28)
[2017-06-11] MEDS: INSULIN REGULAR 100 UNIT/ML SUBCUT SCH ×4 (10:45→22:22)
[2017-06-11] MEDS ORDERED: POLYETHYLENE GLYCOL POWDER 17 GM PACK PO PRN (14:17)
[2017-06-11] MEDS ORDERED: DOCUSATE SODIUM 100 MG CAPSULE PO PRN (14:17)
[2017-06-11] MEDS: VANCOMYCIN INJ 1,250 MG in SODIUM CHLORIDE 0.9% 250 ML IV SCH (14:52)
[2017-06-11] MEDS: DIGOXIN 0.125 MG TABLET PO SCH (14:53)
[2017-06-11] MEDS: RIVAROXABAN 20 MG TABLET PO SCH (17:00)
[2017-06-11] MEDS: AMITRIPTYLINE 25 MG TABLET PO SCH (21:33)
[2017-06-11] MEDS: SIMVASTATIN 10 MG TABLET PO SCH (21:33)
[2017-06-11] MEDS: VERAPAMIL SR 180 MG TABLET PO SCH (21:35)
[2017-06-11] MEDS: ZALEPLON 5 MG CAPSULE PO PRN (21:37)
[2017-06-11] MEDS: LEVOFLOXACIN INJ 750 MG in PREMIX 1 EACH IV SCH (22:46)
[2017-06-12] MEDS: methylPREDNISolone SOD SUC 40 MG/1 ML VIAL IV SCH ×2 (01:45→14:14)
[2017-06-12 03:27] LABS: Basophils % 0.2 % (0.0-0.8); Hematocrit 35.6 VOL% (35.7-47.0); Hemoglobin 11.4 GM/DL (12.0-16.0); Immature Granulocytes % 1.7 %; Lymphocytes # 1.5 10*3/uL (1.4-4.0); Lymphocytes % 12.7 % (21.3-54.2); Mean Corpuscular Hemoglobin 28 PG (27-34); Mean Corpuscular Volume 87.9 FL (87-102); Mean Platelet Volume 10.5 FL (9.6-12.0); Monocytes # 0.9 10*3/uL (0.11-0.8); Monocytes % 7.6 % (1.7-12.7); NRBC # 0.11 10*3/uL; Neutrophils # 9.3 10*3/uL (1.4-7.4); Neutrophils % 77.8 % (38.7-73.9); Platelet Count 306 T/CUMM (130-400); Red Blood Count 4.05 MC/CUMM (3.8-5.5); Red Cell Distribution Width 14.6 % (9.3-17.3); White Blood Count 11.9 T/CUMM (4-12)
[2017-06-12 04:03] LABS: Calcium 8.8 MG/DL (8.5-10.1); Osmolality,Calculated 291.7 MOS/KG (273-304); Potassium 4.2 MMOL/L (3.5-5.1)
[2017-06-12] MEDS: VANCOMYCIN INJ 1,250 MG in SODIUM CHLORIDE 0.9% 250 ML IV SCH (06:17)
[2017-06-12] MEDS: LEVOTHYROXINE 25 MCG TABLET PO SCH (06:18)
[2017-06-12] MEDS: INSULIN REGULAR 100 UNIT/ML SUBCUT SCH ×4 (08:47→22:09)
[2017-06-12] MEDS: SPIRONOLACTONE 25 MG TABLET PO SCH ×2 (08:48→22:11)
[2017-06-12] MEDS: MEMANTINE 5 MG TABLET PO SCH ×2 (08:49→22:10)
[2017-06-12] MEDS: GLIMEPIRIDE 4 MG TABLET PO SCH (08:49)
[2017-06-12] MEDS: cloNIDine 0.1 MG TABLET PO SCH ×2 (08:49→22:10)
[2017-06-12] MEDS: PANTOPRAZOLE 40 MG TABLET PO SCH (08:49)
[2017-06-12] MEDS: LISINOPRIL 20 MG TABLET PO SCH (08:49)
[2017-06-12] MEDS: FUROSEMIDE 20 MG TABLET PO SCH (08:49)
[2017-06-12] MEDS: BACLOFEN 10 MG TABLET PO SCH ×3 (08:49→22:10)
[2017-06-12] MEDS: METOPROLOL SUCCINATE XL 100 MG TABLET PO SCH ×2 (08:49→22:10)
[2017-06-12] MEDS: TAMSULOSIN 0.4 MG CAPSULE PO SCH (08:50)
[2017-06-12] MEDS: ASPIRIN EC 81 MG TABLET PO SCH (08:50)
[2017-06-12] MEDS: hydroCHLOROthiazide 12.5 MG CAPSULE PO SCH (08:50)
[2017-06-12] MEDS: GABAPENTIN 300 MG CAPSULE PO SCH ×2 (08:50→22:10)
[2017-06-12] MEDS: busPIRone 15 MG TABLET PO SCH (08:50)
[2017-06-12] MEDS: MORPHINE ER 30 MG TABLET PO SCH ×2 (09:03→22:10)
[2017-06-12] MEDS: DIGOXIN 0.125 MG TABLET PO SCH (13:19)
[2017-06-12] MEDS: RIVAROXABAN 20 MG TABLET PO SCH (17:38)
[2017-06-12] MEDS: SIMVASTATIN 10 MG TABLET PO SCH (22:10)
[2017-06-12] MEDS: LINEZOLID 600 MG TABLET PO SCH (22:10)
[2017-06-12] MEDS: VERAPAMIL SR 180 MG TABLET PO SCH (22:10)
[2017-06-12] MEDS: ZALEPLON 5 MG CAPSULE PO PRN (22:15)
[2017-06-13 05:36] LABS: Basophils % 0.1 % (0.0-0.8); Eosinophils % 0.1 % (0.00-10.9); Hematocrit 35.1 VOL% (35.7-47.0); Hemoglobin 11.1 GM/DL (12.0-16.0); Immature Granulocytes % 1.3 %; Immature Granulocytes Absolute 0.19 #; Lymphocytes # 2.6 10*3/uL (1.4-4.0); Lymphocytes % 17.7 % (21.3-54.2); Mean Corpuscular HGB Conc 31.6 GM/DL (32-36); Mean Corpuscular Hemoglobin 29 PG (27-34); Mean Platelet Volume 10.2 FL (9.6-12.0); Monocytes # 1.5 10*3/uL (0.11-0.8); Monocytes % 10.1 % (1.7-12.7); NRBC # 0.11 10*3/uL; Neutrophils # 10.2 10*3/uL (1.4-7.4); Neutrophils % 70.7 % (38.7-73.9); Platelet Count 281 T/CUMM (130-400); Red Cell Distribution Width 14.7 % (9.3-17.3); White Blood Count 14.5 T/CUMM (4-12)
[2017-06-13 06:01] LABS: Calcium 8.6 MG/DL (8.5-10.1); Osmolality,Calculated 291.7 MOS/KG (273-304); Potassium 4.3 MMOL/L (3.5-5.1)
[2017-06-13] MEDS: LEVOTHYROXINE 25 MCG TABLET PO SCH (06:30)
[2017-06-13] MEDS ORDERED: predniSONE 20 MG TABLET PO SCH (09:00)
[2017-06-13] MEDS: INSULIN REGULAR 100 UNIT/ML SUBCUT SCH ×3 (09:09→17:07)
[2017-06-13] MEDS: PANTOPRAZOLE 40 MG TABLET PO SCH (09:15)
[2017-06-13] MEDS: hydroCHLOROthiazide 12.5 MG CAPSULE PO SCH (09:15)
[2017-06-13] MEDS: TAMSULOSIN 0.4 MG CAPSULE PO SCH (09:15)
[2017-06-13] MEDS: LINEZOLID 600 MG TABLET PO SCH (09:15)
[2017-06-13] MEDS: cloNIDine 0.1 MG TABLET PO SCH (09:15)
[2017-06-13] MEDS: LISINOPRIL 20 MG TABLET PO SCH (09:15)
[2017-06-13] MEDS: MEMANTINE 5 MG TABLET PO SCH (09:16)
[2017-06-13] MEDS: BACLOFEN 10 MG TABLET PO SCH ×2 (09:16→16:28)
[2017-06-13] MEDS: GABAPENTIN 300 MG CAPSULE PO SCH (09:16)
[2017-06-13] MEDS: METOPROLOL SUCCINATE XL 100 MG TABLET PO SCH (09:16)
[2017-06-13] MEDS: FUROSEMIDE 20 MG TABLET PO SCH (09:16)
[2017-06-13] MEDS: MORPHINE ER 30 MG TABLET PO SCH (09:17)
[2017-06-13] MEDS: SPIRONOLACTONE 25 MG TABLET PO SCH (09:17)
[2017-06-13] MEDS: GLIMEPIRIDE 4 MG TABLET PO SCH (09:17)
[2017-06-13] MEDS: ASPIRIN EC 81 MG TABLET PO SCH (09:17)
[2017-06-13] MEDS: DIGOXIN 0.125 MG TABLET PO SCH (13:02)
[2017-06-13] MEDS: RIVAROXABAN 20 MG TABLET PO SCH (16:28)
[2017-06-13 17:56] VITALS: BP 110/63
== END 2017-06-13 16:45 | disposition home health service (06) | DRG 308 ==
LOC: EDUNIT# → N.ED 20:32 → N.EDINP 23:04 → N.TELES 23:57
PROVIDERS: ADMIT Family Medicine; ATTEND Family Medicine

== ENCOUNTER 2017-06-17 21:05 | Inpatient (IN) ==
[2017-06-17] MEDS ORDERED: SODIUM CHLORIDE 0.9% 1,000 ML IV STA (22:14)
[2017-06-17 22:22] LABS: Basophils % 0.1 % (0.0-0.8); Eosinophils % 0.2 % (0.00-10.9); Hematocrit 38.3 VOL% (35.7-47.0); Hemoglobin 11.5 GM/DL (12.0-16.0); Immature Granulocytes % 0.8 %; Immature Granulocytes Absolute 0.09 #; Lymphocytes # 1.2 10*3/uL (1.4-4.0); Lymphocytes % 9.9 % (21.3-54.2); Mean Corpuscular Hemoglobin 28 PG (27-34); Mean Corpuscular Volume 93.4 FL (87-102); Mean Platelet Volume 10.7 FL (9.6-12.0); Monocytes # 0.5 10*3/uL (0.11-0.8); Monocytes % 3.9 % (1.7-12.7); NRBC # 0.02 10*3/uL; Neutrophils % 85.1 % (38.7-73.9); Platelet Count 291 T/CUMM (130-400); White Blood Count 11.8 T/CUMM (4-12)
[2017-06-17 22:25] LABS: Apearance,Urine CLEAR (Clear); Bilirubin,Urine Negative (Negative); Blood, Urine Negative (Negative); Glucose,Urine (UA) Negative (Negative); Ketones,Urine Negative (Negative); Mucus,Urine Occasional /LPF (Occasional); Nitrite,Urine Negative (Negative); Protein,Urine Negative; RBC,Urine 1 /HPF (0-4); Squamous Epithelial Cell,Urine Occasional /HPF (0-10); Urine Color Yellow (Yellow); Urine Specific Gravity 1.013 (1.001-1.035); Urine Urobilinogen < 2.0 EU/DL (0.2-1.0); WBC,Urine <1 /HPF (0-6)
[2017-06-17 22:29] LABS: Alanine Aminotransferase 61 U/L (13-56); Albumin 3.4 G/DL (3.4-5.0); Alkaline Phosphatase 133 U/L (45-117); Aspartate Amino Transferase 38 U/L (0-37); Bilirubin,Total < 0.39 MG/DL (0.2-1.0); Blood Urea Nitrogen 57 MG/DL (7-18); Calcium 8.9 MG/DL (8.5-10.1); Glucose 213 MG/DL (74-106); Osmolality,Calculated 296.7 MOS/KG (273-304); Potassium 5.4 MMOL/L (3.5-5.1); Sodium 138 MMOL/L (136-145); Total Protein 6.5 G/DL (6.4-8.3)
[2017-06-17] MEDS ORDERED: ALBUTEROL/IPRATROPIUM 3 ML NEB RESP TX STA (22:34)
[2017-06-17 22:43] LABS: Troponin I Only < 0.015 NG/ML (0.00-0.045)
[2017-06-17 22:57] LABS: ABG HCO3 24.4 MMOL/L (20-26); ABG Oxygen Saturation 96.3 % (95-100); ABG PCO2 63.5 MM HG (35-48); ABG PH 7.259 (7.35-7.45); ABG TCO2 26.2 MMOL/L (23-27)
[2017-06-17 23:50] LABS: Lactic Acid 1.4 MMOL/L (0.4-2.0)
[2017-06-18] MEDS: SODIUM CHLORIDE 0.9% 1,000 ML IV SCH ×3 (01:37→17:16)
[2017-06-18 01:58] LABS: ABG Base Excess 0.1 MMOL/L (-2.5-2.5); ABG HCO3 24.5 MMOL/L (20-26); ABG Oxygen Saturation 98.2 % (95-100); ABG PCO2 57.8 MM HG (35-48); ABG PH 7.289 (7.35-7.45); ABG TCO2 25.4 MMOL/L (23-27); Allen Test Positive; Pt O2 Delivery Device BIPAP
[2017-06-18] MEDS: LINEZOLID INJ 600 MG in PREMIX 1 EACH IV SCH ×2 (02:13→13:45)
[2017-06-18] MEDS: ALBUTEROL/IPRATROPIUM 3 ML NEB RESP TX SCH ×6 (02:20→23:53)
[2017-06-18] MEDS ORDERED: NITROGLYCERIN TRANSLING PRN (07:09)
[2017-06-18] MEDS ORDERED: LISINOPRIL 20 MG TABLET PO SCH (09:00)
[2017-06-18 09:16] LABS: ABG Base Excess 0.4 MMOL/L (-2.5-2.5); ABG HCO3 24.8 MMOL/L (20-26); ABG Oxygen Saturation 98.3 % (95-100); ABG PCO2 57.1 MM HG (35-48); ABG PH 7.296 (7.35-7.45); ABG TCO2 25.5 MMOL/L (23-27)
[2017-06-18] MEDS: TAMSULOSIN 0.4 MG CAPSULE PO SCH (09:28)
[2017-06-18] MEDS: BACLOFEN 10 MG TABLET PO PRN ×2 (09:29→13:40)
[2017-06-18] MEDS: SPIRONOLACTONE 25 MG TABLET PO SCH ×2 (09:29→21:09)
[2017-06-18] MEDS: predniSONE 10 MG TABLET PO SCH (09:29)
[2017-06-18] MEDS: GABAPENTIN 300 MG CAPSULE PO SCH ×2 (09:29→21:11)
[2017-06-18] MEDS: LEVOTHYROXINE 25 MCG TABLET PO SCH (09:29)
[2017-06-18] MEDS: MAGNESIUM OXIDE 400 MG TABLET PO SCH ×3 (09:29→21:09)
[2017-06-18] MEDS: MEMANTINE 5 MG TABLET PO SCH ×2 (09:29→21:09)
[2017-06-18] MEDS: FUROSEMIDE 20 MG TABLET PO SCH (09:30)
[2017-06-18] MEDS: DOCUSATE SODIUM 100 MG CAPSULE PO SCH ×2 (09:30→21:09)
[2017-06-18] MEDS: GLIMEPIRIDE 2 MG TABLET PO SCH (09:30)
[2017-06-18] MEDS: hydroCHLOROthiazide 12.5 MG CAPSULE PO SCH (09:30)
[2017-06-18] MEDS: ASPIRIN EC 81 MG TABLET PO SCH (09:30)
[2017-06-18] MEDS: PANTOPRAZOLE 40 MG TABLET PO SCH (09:30)
[2017-06-18] MEDS: METOPROLOL SUCCINATE XL 100 MG TABLET PO SCH ×2 (09:31→21:09)
[2017-06-18 10:13] LABS: Ammonia < 10 UMOL/L (11-32)
[2017-06-18 10:46] LABS: Thyroid Stimulating Hormone 0.539 uIU/ml (0.358-3.74)
[2017-06-18] MEDS ORDERED: GLUCAGON 1 MG VIAL IM PRN (11:12)
[2017-06-18] MEDS ORDERED: DEXTROSE 50% 25 GM/50 ML VIAL IV PRN (11:12)
[2017-06-18] MEDS: INSULIN REGULAR 100 UNIT/ML SUBCUT SCH ×3 (12:27→21:10)
[2017-06-18] MEDS: DIGOXIN 0.125 MG TABLET PO SCH (13:40)
[2017-06-18] MEDS: RIVAROXABAN 20 MG TABLET PO SCH (16:48)
[2017-06-18] MEDS: rOPINIRole 0.25 MG TABLET PO SCH (21:09)
[2017-06-18] MEDS: SIMVASTATIN 10 MG TABLET PO SCH (21:09)
[2017-06-18] MEDS: DONEPEZIL 10 MG TABLET PO SCH (21:09)
[2017-06-19] MEDS: SODIUM CHLORIDE 0.9% 1,000 ML IV SCH ×3 (01:00→18:04)
[2017-06-19] MEDS: LINEZOLID INJ 600 MG in PREMIX 1 EACH IV SCH ×2 (01:29→13:52)
[2017-06-19] MEDS: BACLOFEN 10 MG TABLET PO PRN ×2 (01:30→19:07)
[2017-06-19] MEDS: ALBUTEROL/IPRATROPIUM 3 ML NEB RESP TX SCH ×5 (03:39→19:01)
[2017-06-19 04:19] LABS: ABG Base Excess 2.2 MMOL/L (-2.5-2.5); ABG HCO3 26.3 MMOL/L (20-26); ABG Oxygen Saturation 97.4 % (95-100); ABG PCO2 48.5 MM HG (35-48); ABG PH 7.369 (7.35-7.45); ABG PO2 96.6 MM HG (80-95); ABG TCO2 25.8 MMOL/L (23-27); Allen Test Positive; Pt O2 Delivery Device BIPAP
[2017-06-19] MEDS: LEVOTHYROXINE 25 MCG TABLET PO SCH (06:05)
[2017-06-19 06:12] LABS: Calcium 7.9 MG/DL (8.5-10.1); Osmolality,Calculated 289.3 MOS/KG (273-304); Potassium 4.9 MMOL/L (3.5-5.1)
[2017-06-19] MEDS: INSULIN REGULAR 100 UNIT/ML SUBCUT SCH ×4 (08:58→21:41)
[2017-06-19] MEDS: MEMANTINE 5 MG TABLET PO SCH ×2 (09:42→21:41)
[2017-06-19] MEDS: METOPROLOL SUCCINATE XL 100 MG TABLET PO SCH ×2 (09:43→21:41)
[2017-06-19] MEDS: MAGNESIUM OXIDE 400 MG TABLET PO SCH ×3 (09:43→21:42)
[2017-06-19] MEDS: FUROSEMIDE 20 MG TABLET PO SCH (09:43)
[2017-06-19] MEDS: DOCUSATE SODIUM 100 MG CAPSULE PO SCH ×2 (09:43→21:41)
[2017-06-19] MEDS: ASPIRIN EC 81 MG TABLET PO SCH (09:43)
[2017-06-19] MEDS: GLIMEPIRIDE 2 MG TABLET PO SCH (09:43)
[2017-06-19] MEDS: SPIRONOLACTONE 25 MG TABLET PO SCH ×2 (09:43→21:42)
[2017-06-19] MEDS: PANTOPRAZOLE 40 MG TABLET PO SCH (09:43)
[2017-06-19] MEDS: TAMSULOSIN 0.4 MG CAPSULE PO SCH (09:43)
[2017-06-19] MEDS: predniSONE 10 MG TABLET PO SCH (09:44)
[2017-06-19] MEDS: GABAPENTIN 300 MG CAPSULE PO SCH ×2 (09:44→21:41)
[2017-06-19] MEDS: hydroCHLOROthiazide 12.5 MG CAPSULE PO SCH (09:46)
[2017-06-19] MEDS: DIGOXIN 0.125 MG TABLET PO SCH (13:51)
[2017-06-19] MEDS: RIVAROXABAN 20 MG TABLET PO SCH (16:22)
[2017-06-19] MEDS ORDERED: cloNIDine 0.1 MG TABLET PO ONE (18:29)
[2017-06-19] MEDS ORDERED: cloNIDine 0.1 MG TABLET PO PRN (18:30)
[2017-06-19] MEDS: DONEPEZIL 10 MG TABLET PO SCH (21:41)
[2017-06-19] MEDS: MORPHINE ER 15 MG TABLET PO SCH (21:42)
[2017-06-19] MEDS: rOPINIRole 0.25 MG TABLET PO SCH (21:42)
[2017-06-19] MEDS: SIMVASTATIN 10 MG TABLET PO SCH (21:42)
[2017-06-20] MEDS: hydrALAZINE 20 MG/1 ML VIAL IV PRN (00:04)
[2017-06-20] MEDS: ALBUTEROL/IPRATROPIUM 3 ML NEB RESP TX SCH ×7 (00:06→23:48)
[2017-06-20] MEDS: LINEZOLID INJ 600 MG in PREMIX 1 EACH IV SCH ×2 (01:51→13:55)
[2017-06-20 03:47] LABS: ABG Base Excess 4.4 MMOL/L (-2.5-2.5); ABG HCO3 28.4 MMOL/L (20-26); ABG Oxygen Saturation 97.8 % (95-100); ABG PCO2 39.7 MM HG (35-48); ABG PH 7.472 (7.35-7.45); ABG PO2 111.7 MM HG (80-95); ABG TCO2 29.6 MMOL/L (23-27)
[2017-06-20 05:17] LABS: Basophils % 0.1 % (0.0-0.8); Eosinophils % 0.6 % (0.00-10.9); Hematocrit 31.2 VOL% (35.7-47.0); Immature Granulocytes % 0.4 %; Immature Granulocytes Absolute 0.03 #; Lymphocytes # 2.3 10*3/uL (1.4-4.0); Lymphocytes % 32.2 % (21.3-54.2); Mean Corpuscular HGB Conc 32.1 GM/DL (32-36); Mean Corpuscular Hemoglobin 28 PG (27-34); Mean Corpuscular Volume 87.9 FL (87-102); Mean Platelet Volume 9.7 FL (9.6-12.0); Monocytes # 0.5 10*3/uL (0.11-0.8); Neutrophils # 4.3 10*3/uL (1.4-7.4); Neutrophils % 59.7 % (38.7-73.9); Platelet Count 203 T/CUMM (130-400); Red Blood Count 3.55 MC/CUMM (3.8-5.5); Red Cell Distribution Width 14.8 % (9.3-17.3); White Blood Count 7.2 T/CUMM (4-12)
[2017-06-20 06:02] LABS: Calcium 8.5 MG/DL (8.5-10.1); Osmolality,Calculated 283.4 MOS/KG (273-304); Potassium 4.3 MMOL/L (3.5-5.1)
[2017-06-20] MEDS: LEVOTHYROXINE 25 MCG TABLET PO SCH (06:10)
[2017-06-20] MEDS: INSULIN REGULAR 100 UNIT/ML SUBCUT SCH ×4 (07:21→21:01)
[2017-06-20] MEDS: MORPHINE ER 15 MG TABLET PO SCH ×2 (09:06→21:02)
[2017-06-20] MEDS: TAMSULOSIN 0.4 MG CAPSULE PO SCH (09:07)
[2017-06-20] MEDS: MAGNESIUM OXIDE 400 MG TABLET PO SCH ×3 (09:08→21:02)
[2017-06-20] MEDS: MEMANTINE 5 MG TABLET PO SCH ×2 (09:08→21:02)
[2017-06-20] MEDS: SPIRONOLACTONE 25 MG TABLET PO SCH ×2 (09:08→21:03)
[2017-06-20] MEDS: METOPROLOL SUCCINATE XL 100 MG TABLET PO SCH ×2 (09:08→21:03)
[2017-06-20] MEDS: hydroCHLOROthiazide 12.5 MG CAPSULE PO SCH (09:08)
[2017-06-20] MEDS: GLIMEPIRIDE 2 MG TABLET PO SCH (09:08)
[2017-06-20] MEDS: DOCUSATE SODIUM 100 MG CAPSULE PO SCH ×2 (09:10→21:02)
[2017-06-20] MEDS: predniSONE 10 MG TABLET PO SCH (09:10)
[2017-06-20] MEDS: FUROSEMIDE 20 MG TABLET PO SCH (09:10)
[2017-06-20] MEDS: ASPIRIN EC 81 MG TABLET PO SCH (09:10)
[2017-06-20] MEDS: PANTOPRAZOLE 40 MG TABLET PO SCH (09:11)
[2017-06-20] MEDS: GABAPENTIN 300 MG CAPSULE PO SCH ×2 (09:11→21:02)
[2017-06-20] MEDS ORDERED: ZALEPLON 5 MG CAPSULE PO PRN (09:15)
[2017-06-20] MEDS: DIGOXIN 0.125 MG TABLET PO SCH (13:54)
[2017-06-20] MEDS: RIVAROXABAN 20 MG TABLET PO SCH (16:01)
[2017-06-20] MEDS: SODIUM CHLORIDE 0.9% 1,000 ML IV SCH (16:06)
[2017-06-20] MEDS: SIMVASTATIN 10 MG TABLET PO SCH (21:03)
[2017-06-20] MEDS: DONEPEZIL 10 MG TABLET PO SCH (21:03)
[2017-06-20] MEDS: rOPINIRole 0.25 MG TABLET PO SCH (21:03)
[2017-06-21] MEDS: ALBUTEROL/IPRATROPIUM 3 ML NEB RESP TX SCH ×6 (02:15→23:42)
[2017-06-21] MEDS: LINEZOLID INJ 600 MG in PREMIX 1 EACH IV SCH ×3 (04:35→20:52)
[2017-06-21 04:52] LABS: Basophils % 0.1 % (0.0-0.8); Eosinophils # 0.1 10*3/uL (0.0-0.87); Eosinophils % 0.8 % (0.00-10.9); Hematocrit 32.5 VOL% (35.7-47.0); Hemoglobin 10.1 GM/DL (12.0-16.0); Immature Granulocytes % 0.3 %; Immature Granulocytes Absolute 0.02 #; Lymphocytes # 2.3 10*3/uL (1.4-4.0); Lymphocytes % 31.7 % (21.3-54.2); Mean Corpuscular HGB Conc 31.1 GM/DL (32-36); Mean Corpuscular Hemoglobin 28 PG (27-34); Mean Platelet Volume 10.3 FL (9.6-12.0); Monocytes # 0.5 10*3/uL (0.11-0.8); Monocytes % 6.1 % (1.7-12.7); Neutrophils # 4.5 10*3/uL (1.4-7.4); Platelet Count 194 T/CUMM (130-400); Red Blood Count 3.65 MC/CUMM (3.8-5.5); Red Cell Distribution Width 14.6 % (9.3-17.3); White Blood Count 7.4 T/CUMM (4-12)
[2017-06-21] MEDS: hydrALAZINE 20 MG/1 ML VIAL IV PRN (05:04)
[2017-06-21 05:06] LABS: Calcium 8.8 MG/DL (8.5-10.1); Osmolality,Calculated 284.4 MOS/KG (273-304); Potassium 4.5 MMOL/L (3.5-5.1)
[2017-06-21] MEDS: LEVOTHYROXINE 25 MCG TABLET PO SCH (06:22)
[2017-06-21] MEDS: INSULIN REGULAR 100 UNIT/ML SUBCUT SCH ×4 (08:07→20:56)
[2017-06-21] MEDS: hydroCHLOROthiazide 12.5 MG CAPSULE PO SCH (09:15)
[2017-06-21] MEDS: FUROSEMIDE 20 MG TABLET PO SCH (09:15)
[2017-06-21] MEDS: MEMANTINE 5 MG TABLET PO SCH ×2 (09:15→20:53)
[2017-06-21] MEDS: PANTOPRAZOLE 40 MG TABLET PO SCH (09:15)
[2017-06-21] MEDS: TAMSULOSIN 0.4 MG CAPSULE PO SCH (09:15)
[2017-06-21] MEDS: MAGNESIUM OXIDE 400 MG TABLET PO SCH ×3 (09:15→20:53)
[2017-06-21] MEDS: SPIRONOLACTONE 25 MG TABLET PO SCH ×2 (09:15→20:53)
[2017-06-21] MEDS: GLIMEPIRIDE 2 MG TABLET PO SCH (09:15)
[2017-06-21] MEDS: BACLOFEN 10 MG TABLET PO PRN ×2 (09:15→20:53)
[2017-06-21] MEDS: GABAPENTIN 300 MG CAPSULE PO SCH ×2 (09:15→20:53)
[2017-06-21] MEDS: predniSONE 10 MG TABLET PO SCH (09:16)
[2017-06-21] MEDS: DOCUSATE SODIUM 100 MG CAPSULE PO SCH ×2 (09:16→20:53)
[2017-06-21] MEDS: ASPIRIN EC 81 MG TABLET PO SCH (09:16)
[2017-06-21] MEDS: METOPROLOL SUCCINATE XL 100 MG TABLET PO SCH ×2 (09:16→20:53)
[2017-06-21] MEDS: MORPHINE ER 15 MG TABLET PO SCH ×2 (09:29→20:54)
[2017-06-21] MEDS ORDERED: ZALEPLON 5 MG CAPSULE PO PRN (10:32)
[2017-06-21] MEDS: DIGOXIN 0.125 MG TABLET PO SCH (13:08)
[2017-06-21] MEDS: RIVAROXABAN 20 MG TABLET PO SCH (17:51)
[2017-06-21] MEDS: SIMVASTATIN 10 MG TABLET PO SCH (20:53)
[2017-06-21] MEDS: DONEPEZIL 10 MG TABLET PO SCH (20:53)
[2017-06-21] MEDS: rOPINIRole 0.25 MG TABLET PO SCH (20:53)
[2017-06-22 05:32] LABS: Basophils % 0.1 % (0.0-0.8); Eosinophils # 0.1 10*3/uL (0.0-0.87); Eosinophils % 0.9 % (0.00-10.9); Hematocrit 35.1 VOL% (35.7-47.0); Hemoglobin 11.3 GM/DL (12.0-16.0); Immature Granulocytes % 0.3 %; Immature Granulocytes Absolute 0.02 #; Lymphocytes # 2.3 10*3/uL (1.4-4.0); Lymphocytes % 30.7 % (21.3-54.2); Mean Corpuscular HGB Conc 32.2 GM/DL (32-36); Mean Corpuscular Hemoglobin 28 PG (27-34); Mean Corpuscular Volume 87.5 FL (87-102); Mean Platelet Volume 10.7 FL (9.6-12.0); Monocytes # 0.6 10*3/uL (0.11-0.8); Monocytes % 8.1 % (1.7-12.7); NRBC # 0.02 10*3/uL; Neutrophils # 4.5 10*3/uL (1.4-7.4); Neutrophils % 59.9 % (38.7-73.9); Platelet Count 171 T/CUMM (130-400); Red Blood Count 4.01 MC/CUMM (3.8-5.5); Red Cell Distribution Width 14.6 % (9.3-17.3); White Blood Count 7.5 T/CUMM (4-12)
[2017-06-22 06:05] LABS: Calcium 9.2 MG/DL (8.5-10.1); Osmolality,Calculated 279.7 MOS/KG (273-304); Potassium 4.3 MMOL/L (3.5-5.1)
[2017-06-22] MEDS: LEVOTHYROXINE 25 MCG TABLET PO SCH (06:05)
[2017-06-22] MEDS: INSULIN REGULAR 100 UNIT/ML SUBCUT SCH ×2 (07:28→11:50)
[2017-06-22] MEDS: ALBUTEROL/IPRATROPIUM 3 ML NEB RESP TX SCH ×2 (08:08→10:22)
[2017-06-22] MEDS: GLIMEPIRIDE 2 MG TABLET PO SCH (09:02)
[2017-06-22] MEDS: hydroCHLOROthiazide 12.5 MG CAPSULE PO SCH (09:02)
[2017-06-22] MEDS: MEMANTINE 5 MG TABLET PO SCH (09:02)
[2017-06-22] MEDS: GABAPENTIN 300 MG CAPSULE PO SCH (09:02)
[2017-06-22] MEDS: PANTOPRAZOLE 40 MG TABLET PO SCH (09:02)
[2017-06-22] MEDS: FUROSEMIDE 20 MG TABLET PO SCH (09:02)
[2017-06-22] MEDS: METOPROLOL SUCCINATE XL 100 MG TABLET PO SCH (09:02)
[2017-06-22] MEDS: ASPIRIN EC 81 MG TABLET PO SCH (09:02)
[2017-06-22] MEDS: TAMSULOSIN 0.4 MG CAPSULE PO SCH (09:02)
[2017-06-22] MEDS: BACLOFEN 10 MG TABLET PO PRN (09:02)
[2017-06-22] MEDS: MAGNESIUM OXIDE 400 MG TABLET PO SCH (09:02)
[2017-06-22] MEDS: predniSONE 10 MG TABLET PO SCH (09:02)
[2017-06-22] MEDS: DOCUSATE SODIUM 100 MG CAPSULE PO SCH (09:03)
[2017-06-22] MEDS: SPIRONOLACTONE 25 MG TABLET PO SCH (09:03)
[2017-06-22] MEDS: MORPHINE ER 15 MG TABLET PO SCH (09:59)
[2017-06-22] MEDS: LINEZOLID INJ 600 MG in PREMIX 1 EACH IV SCH (10:18)
[2017-06-22] MEDS: DIGOXIN 0.125 MG TABLET PO SCH (12:30)
[2017-06-22 12:32] VITALS: BP 137/72
== END 2017-06-22 13:55 | disposition swing bed (61) | DRG 189 ==
LOC: EDUNIT# → N.EDINP 21:05 → N.ED 21:05 → N.5E 06-18 00:30 → N.CC 06-18 01:45 → N.TELES 06-20 21:43
PROVIDERS: ADMIT Family Medicine; ATTEND Family Medicine

== ENCOUNTER 2018-04-07 08:50 | Inpatient (IN) ==
[2018-04-07 09:37] LABS: Basophils % 0.2 % (0.0-0.8); Eosinophils % 0.5 % (0.00-10.9); Hematocrit 35.8 VOL% (35.7-47.0); Hemoglobin 11.1 GM/DL (12.0-16.0); Immature Granulocytes % 0.3 %; Immature Granulocytes Absolute 0.02 #; Lymphocytes # 2.1 10*3/uL (1.4-4.0); Lymphocytes % 32.2 % (21.3-54.2); Mean Corpuscular Hemoglobin 27 PG (27-34); Mean Corpuscular Volume 86.9 FL (87-102); Mean Platelet Volume 10.4 FL (9.6-12.0); Monocytes # 0.7 10*3/uL (0.11-0.8); Neutrophils # 3.6 10*3/uL (1.4-7.4); Neutrophils % 55.8 % (38.7-73.9); Platelet Count 233 T/CUMM (130-400); Red Blood Count 4.12 MC/CUMM (3.8-5.5); Red Cell Distribution Width 15.5 % (9.3-17.3); White Blood Count 6.4 T/CUMM (4-12)
[2018-04-07 10:00] LABS: Bilirubin,Total 0.4 MG/DL (0.2-1.0); Calcium 9.8 MG/DL (8.5-10.1); Osmolality,Calculated 288.3 MOS/KG (273-304); Potassium 4.2 MMOL/L (3.5-5.1); Total Protein 7.4 G/DL (6.4-8.3)
[2018-04-07 10:05] LABS: Apearance,Urine CLEAR (Clear); Bacteria,Urine Many /HPF (Few); Barbiturates Screen,Urine Negative (Negative); Benzodiazepines Screen,Urine Negative (Negative); Bilirubin,Urine Negative (Negative); Blood, Urine Small mg/dL (Negative); Cannabinoid Screen,Urine Negative (Negative); Glucose,Urine (UA) Negative (Negative); Hyaline Casts,Urine 3 /LPF (0-3); Ketones,Urine Negative (Negative); Mucus,Urine Occasional /LPF (Occasional); Nitrite,Urine Positive (Negative); Opiate Screen,Urine Positive (Negative); Phencyclidine Screen,Urine Negative (Negative); Protein,Urine 30 MG/DL; RBC,Urine 1 /HPF (0-4); Squamous Epithelial Cell,Urine Occasional /HPF (0-10); Urine Color Amber (Yellow); Urine Specific Gravity 1.017 (1.001-1.035); WBC,Urine 2 /HPF (0-6)
[2018-04-07 11:41] LABS: Sedimentation Rate-Westergren 46 MM/HR (0-30)
[2018-04-07] MEDS ORDERED: hydrALAZINE 20 MG/1 ML VIAL IV STA (11:49)
[2018-04-07] MEDS ORDERED: METOPROLOL TARTRATE 5 MG/5 ML VIAL IV STA (11:49)
[2018-04-07] MEDS ORDERED: cefTRIAXone 1,000 MG in SODIUM CHLORIDE 0.9% 100 ML IV STA (12:32)
[2018-04-07] MEDS ORDERED: DILTIAZEM 50 MG/10 ML VIAL IV STA (13:17)
[2018-04-07] MEDS: dilTIAZem Drip 125 MG/125 ML PREMIX IV SCH (13:57)
[2018-04-07] MEDS ORDERED: ONDANSETRON 4 MG/2 ML VIAL IV PRN (15:00)
[2018-04-07] MEDS ORDERED: PROMETHAZINE 25 MG TABLET PO PRN (15:00)
[2018-04-07] MEDS ORDERED: ACETAMINOPHEN 325 MG TABLET PO PRN (15:00)
[2018-04-07] MEDS ORDERED: NITROGLYCERIN TRANSLING PRN (15:10)
[2018-04-07] MEDS ORDERED: FUROSEMIDE 20 MG TABLET PO PRN (15:10)
[2018-04-07] MEDS ORDERED: DEXTROSE 50% 25 GM/50 ML SYRINGE IV PRN (17:24)
[2018-04-07] MEDS ORDERED: GLUCAGON 1 MG VIAL IM PRN (17:24)
[2018-04-07] MEDS: RIVAROXABAN 20 MG TABLET PO SCH (17:50)
[2018-04-07] MEDS: SIMVASTATIN 10 MG TABLET PO SCH (21:22)
[2018-04-07] MEDS: busPIRone 15 MG TABLET PO SCH (21:22)
[2018-04-07] MEDS: DOCUSATE SODIUM 100 MG CAPSULE PO SCH (21:22)
[2018-04-07] MEDS: SERTRALINE 100 MG TABLET PO SCH (21:23)
[2018-04-07] MEDS: rOPINIRole 0.25 MG TABLET PO SCH (21:23)
[2018-04-07] MEDS: INSULIN LISPRO 100 UNIT/ML SUBCUT SCH (21:23)
[2018-04-07] MEDS: MEMANTINE 10 MG TABLET PO SCH (21:23)
[2018-04-07] MEDS: cloNIDine 0.1 MG TABLET PO SCH (21:23)
[2018-04-08] MEDS: LEVOTHYROXINE 25 MCG TABLET PO SCH (05:43)
[2018-04-08 06:10] LABS: Basophils % 0.3 % (0.0-0.8); Eosinophils # 0.1 10*3/uL (0.0-0.87); Eosinophils % 1.4 % (0.00-10.9); Hematocrit 37.4 VOL% (35.7-47.0); Hemoglobin 11.5 GM/DL (12.0-16.0); Lymphocytes # 2.5 10*3/uL (1.4-4.0); Lymphocytes % 42.8 % (21.3-54.2); Mean Corpuscular HGB Conc 30.7 GM/DL (32-36); Mean Corpuscular Hemoglobin 26 PG (27-34); Mean Platelet Volume 10.7 FL (9.6-12.0); Monocytes # 0.5 10*3/uL (0.11-0.8); Monocytes % 8.5 % (1.7-12.7); Neutrophils # 2.7 10*3/uL (1.4-7.4); Platelet Count 228 T/CUMM (130-400); Red Blood Count 4.35 MC/CUMM (3.8-5.5); Red Cell Distribution Width 15.7 % (9.3-17.3); White Blood Count 5.8 T/CUMM (4-12)
[2018-04-08 06:40] LABS: Calcium 9.5 MG/DL (8.5-10.1); Osmolality,Calculated 279.5 MOS/KG (273-304); Potassium 3.4 MMOL/L (3.5-5.1); Risk Ratio 2.3; Thyroid Stimulating Hormone 0.376 uIU/ml (0.358-3.74); VLDL CHOLESTEROL 18.8 MG/DL
[2018-04-08] MEDS: DONEPEZIL 10 MG TABLET PO SCH (08:16)
[2018-04-08] MEDS: busPIRone 15 MG TABLET PO SCH ×2 (08:17→21:27)
[2018-04-08] MEDS: PANTOPRAZOLE 40 MG TABLET PO SCH (08:17)
[2018-04-08] MEDS: MEMANTINE 10 MG TABLET PO SCH ×2 (08:17→21:27)
[2018-04-08] MEDS: DIGOXIN 0.125 MG TABLET PO SCH (08:17)
[2018-04-08] MEDS: ASPIRIN EC 81 MG TABLET PO SCH (08:17)
[2018-04-08] MEDS: DOCUSATE SODIUM 100 MG CAPSULE PO SCH ×2 (08:17→21:27)
[2018-04-08] MEDS: INSULIN LISPRO 100 UNIT/ML SUBCUT SCH ×4 (08:18→22:04)
[2018-04-08] MEDS: dilTIAZem Drip 125 MG/125 ML PREMIX IV SCH ×2 (08:18→16:48)
[2018-04-08] MEDS ORDERED: LISINOPRIL 20 MG TABLET PO SCH (09:00)
[2018-04-08] MEDS: POTASSIUM CHLORIDE 20 MEQ TABLET PO SCH (14:39)
[2018-04-08] MEDS: RIVAROXABAN 20 MG TABLET PO SCH (17:18)
[2018-04-08] MEDS ORDERED: cefTRIAXone 1,000 MG in SYRINGE 1 EACH IV SCH (19:00)
[2018-04-08] MEDS ORDERED: DILTIAZEM CD 120 MG CAPSULE PO SCH (21:00)
[2018-04-08] MEDS: rOPINIRole 0.25 MG TABLET PO SCH (21:26)
[2018-04-08] MEDS: SERTRALINE 100 MG TABLET PO SCH (21:27)
[2018-04-08] MEDS: METOPROLOL TARTRATE 25 MG TABLET PO SCH (21:27)
[2018-04-08] MEDS: cloNIDine 0.1 MG TABLET PO SCH (21:27)
[2018-04-08] MEDS: SIMVASTATIN 10 MG TABLET PO SCH (21:27)
[2018-04-09 05:38] LABS: Basophils % 0.3 % (0.0-0.8); Eosinophils # 0.1 10*3/uL (0.0-0.87); Eosinophils % 1.3 % (0.00-10.9); Hematocrit 35.1 VOL% (35.7-47.0); Hemoglobin 10.6 GM/DL (12.0-16.0); Immature Granulocytes % 0.4 %; Immature Granulocytes Absolute 0.03 #; Lymphocytes # 2.5 10*3/uL (1.4-4.0); Lymphocytes % 35.3 % (21.3-54.2); Mean Corpuscular HGB Conc 30.2 GM/DL (32-36); Mean Corpuscular Hemoglobin 26 PG (27-34); Mean Corpuscular Volume 87.5 FL (87-102); Mean Platelet Volume 10.3 FL (9.6-12.0); Monocytes # 0.7 10*3/uL (0.11-0.8); Monocytes % 10.4 % (1.7-12.7); Neutrophils # 3.7 10*3/uL (1.4-7.4); Neutrophils % 52.3 % (38.7-73.9); Platelet Count 217 T/CUMM (130-400); Red Blood Count 4.01 MC/CUMM (3.8-5.5); Red Cell Distribution Width 15.7 % (9.3-17.3); White Blood Count 7.1 T/CUMM (4-12)
[2018-04-09 05:51] LABS: Calcium 9.1 MG/DL (8.5-10.1); Osmolality,Calculated 279.7 MOS/KG (273-304); Potassium 4.4 MMOL/L (3.5-5.1)
[2018-04-09 05:52] LABS: Calcium 9.2 MG/DL (8.5-10.1); Osmolality,Calculated 277.8 MOS/KG (273-304); Potassium 4.4 MMOL/L (3.5-5.1)
[2018-04-09] MEDS: LEVOTHYROXINE 25 MCG TABLET PO SCH (06:21)
[2018-04-09] MEDS: INSULIN LISPRO 100 UNIT/ML SUBCUT SCH ×2 (08:39→11:55)
[2018-04-09] MEDS: DONEPEZIL 10 MG TABLET PO SCH (08:41)
[2018-04-09] MEDS: busPIRone 15 MG TABLET PO SCH (08:41)
[2018-04-09] MEDS: POTASSIUM CHLORIDE 20 MEQ TABLET PO SCH (08:41)
[2018-04-09] MEDS: PANTOPRAZOLE 40 MG TABLET PO SCH (08:41)
[2018-04-09] MEDS: DIGOXIN 0.125 MG TABLET PO SCH (08:42)
[2018-04-09] MEDS: ASPIRIN EC 81 MG TABLET PO SCH (08:42)
[2018-04-09] MEDS: METOPROLOL TARTRATE 25 MG TABLET PO SCH (08:43)
[2018-04-09] MEDS: DOCUSATE SODIUM 100 MG CAPSULE PO SCH (08:44)
[2018-04-09] MEDS: MEMANTINE 10 MG TABLET PO SCH (08:44)
[2018-04-09] MEDS ORDERED: ACETAMINOPHEN 325 MG TABLET PO SCH (10:30)
[2018-04-09 11:58] VITALS: BP 131/76
[2018-04-09] MEDS: dilTIAZem Drip 125 MG/125 ML PREMIX IV SCH (14:48)
[2018-04-09] MEDS ORDERED: GABAPENTIN 100 MG CAPSULE PO SCH (15:00)
== END 2018-04-09 16:06 | disposition home health service (06) | DRG 690 ==
LOC: N.ED 08:50 → SUATTDRO 14:58 → N.EDINP 14:58 → N.TELEN 16:30
PROVIDERS: ADMIT Internal Medicine; ATTEND Internal Medicine

== ENCOUNTER 2018-10-19 02:08 | Inpatient (IN) ==
[2018-10-19 02:52] LABS: Basophils % 0.2 % (0.0-0.8); Eosinophils % 0.1 % (0.00-10.9); Hematocrit 29.9 VOL% (35.7-47.0); Hemoglobin 8.9 GM/DL (12.0-16.0); Immature Granulocytes % 0.6 %; Immature Granulocytes Absolute 0.06 #; Lymphocytes % 10.2 % (21.3-54.2); Mean Corpuscular HGB Conc 29.8 GM/DL (32-36); Mean Platelet Volume 11.1 FL (9.6-12.0); Monocytes % 5.4 % (1.7-12.7); NRBC # 0.04 10*3/uL; Neutrophils % 83.5 % (38.7-73.9); Platelet Count 199 T/CUMM (130-400); Red Blood Count 3.56 MC/CUMM (3.8-5.5); White Blood Count 9.7 T/CUMM (4-12)
[2018-10-19] MEDS ORDERED: FUROSEMIDE 40 MG/4 ML VIAL IV STA (03:04)
[2018-10-19 03:14] LABS: Albumin 3.1 G/DL (3.4-5.0); Bilirubin,Total 0.4 MG/DL (0.2-1.0); Calcium 9.4 MG/DL (8.5-10.1); Osmolality,Calculated 299.8 MOS/KG (273-304); Total Protein 6.6 G/DL (6.4-8.3)
[2018-10-19] MEDS ORDERED: DOCUSATE SODIUM 100 MG CAPSULE PO PRN (05:00)
[2018-10-19] MEDS ORDERED: MORPHINE 4 MG/1 ML VIAL IV PRN (05:00)
[2018-10-19] MEDS ORDERED: DEXTROSE 50% 25 GM/50 ML VIAL IV PRN (05:00)
[2018-10-19] MEDS ORDERED: GLUCAGON 1 MG VIAL IM PRN (05:00)
[2018-10-19] MEDS ORDERED: ONDANSETRON 4 MG/2 ML VIAL IV PRN (05:00)
[2018-10-19] MEDS ORDERED: NITROGLYCERIN SL 0.4 MG TABLET SL PRN (05:06)
[2018-10-19 05:24] LABS: Apearance,Urine CLEAR (Clear); Bacteria,Urine Occasional /HPF (Few); Bilirubin,Urine Negative (Negative); Blood, Urine Negative (Negative); Glucose,Urine (UA) >=500 mg/dL (Negative); Hyaline Casts,Urine 1 /LPF (0-3); Ketones,Urine Negative (Negative); Nitrite,Urine Negative (Negative); Protein,Urine 100 MG/DL; RBC,Urine 1 /HPF (0-4); Squamous Epithelial Cell,Urine Occasional /HPF (0-10); Urine Color Yellow (Yellow); Urine Specific Gravity 1.011 (1.001-1.035); Urine Urobilinogen < 2.0 EU/DL (0.2-1.0); WBC,Urine 1 /HPF (0-6)
[2018-10-19 05:37] LABS: Risk Ratio 1.94; Thyroid Stimulating Hormone 0.929 uIU/ml (0.358-3.74); VLDL CHOLESTEROL 23.2 MG/DL
[2018-10-19] MEDS: ACETAMINOPHEN 325 MG TABLET PO PRN ×2 (06:19→12:54)
[2018-10-19] MEDS: DILTIAZEM CD 120 MG CAPSULE PO SCH (08:49)
[2018-10-19] MEDS: LEVOTHYROXINE 25 MCG TABLET PO SCH (08:49)
[2018-10-19] MEDS: ASPIRIN EC 81 MG TABLET PO SCH (08:51)
[2018-10-19] MEDS: INSULIN LISPRO 100 UNIT/ML SUBCUT SCH ×4 (08:52→21:06)
[2018-10-19] MEDS: PANTOPRAZOLE 40 MG TABLET PO SCH (08:52)
[2018-10-19] MEDS: GLIMEPIRIDE 2 MG TABLET PO SCH (08:52)
[2018-10-19] MEDS ORDERED: METOPROLOL TARTRATE 25 MG TABLET PO SCH (09:00)
[2018-10-19] MEDS: hydrALAZINE 20 MG/1 ML VIAL IV PRN (12:05)
[2018-10-19] MEDS ORDERED: ALBUTEROL/IPRATROPIUM 3 ML NEB RESP TX ONE (13:34)
[2018-10-19 14:19] LABS: Troponin I 0.049 NG/ML (0.00-0.045)
[2018-10-19] MEDS ORDERED: MAGNESIUM SULF RIDER 2 GM in PREMIX 1 EACH IV PRN (15:25)
[2018-10-19] MEDS ORDERED: MAGNESIUM SULF RIDER 4 GM in PREMIX 1 EACH IV PRN (15:25)
[2018-10-19] MEDS ORDERED: GABAPENTIN 100 MG CAPSULE PO ONE (15:32)
[2018-10-19] MEDS ORDERED: METOPROLOL TARTRATE 25 MG TABLET PO ONE (16:15)
[2018-10-19] MEDS: cefTRIAXone 1,000 MG in SYRINGE 1 EACH IV SCH (16:43)
[2018-10-19] MEDS: RIVAROXABAN 20 MG TABLET PO SCH (17:28)
[2018-10-19] MEDS: AZITHROMYCIN INJ 500 MG in SODIUM CHLORIDE 0.9% 250 ML IV SCH (19:11)
[2018-10-19] MEDS: ALBUTEROL 0.63 MG/3 ML NEB RESP TX SCH (20:33)
[2018-10-19] MEDS: cloNIDine 0.1 MG TABLET PO SCH (21:07)
[2018-10-19] MEDS: SIMVASTATIN 10 MG TABLET PO SCH (21:07)
[2018-10-19] MEDS: GABAPENTIN 100 MG CAPSULE PO SCH (21:07)
[2018-10-19] MEDS: METOPROLOL TARTRATE 50 MG TABLET PO SCH (21:08)
[2018-10-20] MEDS: ALBUTEROL 0.63 MG/3 ML NEB RESP TX SCH ×4 (02:00→19:32)
[2018-10-20 06:53] LABS: Basophils % 0.3 % (0.0-0.8); Eosinophils # 0.1 10*3/uL (0.0-0.87); Eosinophils % 0.9 % (0.00-10.9); Hematocrit 29.6 VOL% (35.7-47.0); Immature Granulocytes % 0.2 %; Immature Granulocytes Absolute 0.01 #; Lymphocytes # 1.4 10*3/uL (1.4-4.0); Lymphocytes % 21.5 % (21.3-54.2); Mean Corpuscular HGB Conc 30.4 GM/DL (32-36); Mean Corpuscular Volume 84.1 FL (87-102); Mean Platelet Volume 11.7 FL (9.6-12.0); Monocytes % 7.1 % (1.7-12.7); NRBC # 0.05 10*3/uL; Platelet Count 196 T/CUMM (130-400); Red Blood Count 3.52 MC/CUMM (3.8-5.5); Red Cell Distribution Width 17.4 % (9.3-17.3); White Blood Count 6.6 T/CUMM (4-12)
[2018-10-20 07:21] LABS: Osmolality,Calculated 288.8 MOS/KG (273-304)
[2018-10-20] MEDS ORDERED: POTASSIUM CHLORIDE 20 MEQ TABLET PO ONE (08:14)
[2018-10-20] MEDS: hydrALAZINE 20 MG/1 ML VIAL IV PRN (08:21)
[2018-10-20] MEDS: GLIMEPIRIDE 2 MG TABLET PO SCH (08:59)
[2018-10-20] MEDS: ASPIRIN EC 81 MG TABLET PO SCH (08:59)
[2018-10-20] MEDS: GABAPENTIN 100 MG CAPSULE PO SCH ×3 (09:00→20:56)
[2018-10-20] MEDS: DILTIAZEM CD 120 MG CAPSULE PO SCH (09:00)
[2018-10-20] MEDS: METOPROLOL TARTRATE 50 MG TABLET PO SCH ×3 (09:00→20:55)
[2018-10-20] MEDS: PANTOPRAZOLE 40 MG TABLET PO SCH (09:01)
[2018-10-20] MEDS: FUROSEMIDE 40 MG/4 ML VIAL IV SCH (09:01)
[2018-10-20] MEDS: LEVOTHYROXINE 25 MCG TABLET PO SCH (09:01)
[2018-10-20] MEDS: ACETAMINOPHEN 325 MG TABLET PO PRN ×2 (10:07→20:53)
[2018-10-20] MEDS: INSULIN LISPRO 100 UNIT/ML SUBCUT SCH ×4 (10:39→21:16)
[2018-10-20] MEDS: LISINOPRIL 10 MG TABLET PO SCH ×2 (12:30→20:53)
[2018-10-20] MEDS: cefTRIAXone 1,000 MG in SYRINGE 1 EACH IV SCH (15:30)
[2018-10-20] MEDS: RIVAROXABAN 20 MG TABLET PO SCH (17:23)
[2018-10-20] MEDS: AZITHROMYCIN INJ 500 MG in SODIUM CHLORIDE 0.9% 250 ML IV SCH (17:29)
[2018-10-20] MEDS: SIMVASTATIN 10 MG TABLET PO SCH (20:54)
[2018-10-20] MEDS: cloNIDine 0.1 MG TABLET PO SCH (20:55)
[2018-10-21] MEDS: ALBUTEROL 0.63 MG/3 ML NEB RESP TX SCH ×4 (01:45→19:44)
[2018-10-21 05:28] LABS: Basophils % 0.3 % (0.0-0.8); Eosinophils # 0.2 10*3/uL (0.0-0.87); Eosinophils % 2.5 % (0.00-10.9); Hematocrit 29.7 VOL% (35.7-47.0); Hemoglobin 8.6 GM/DL (12.0-16.0); Immature Granulocytes % 0.5 %; Immature Granulocytes Absolute 0.03 #; Lymphocytes # 1.6 10*3/uL (1.4-4.0); Lymphocytes % 27.3 % (21.3-54.2); Mean Corpuscular Volume 85.3 FL (87-102); Mean Platelet Volume 10.9 FL (9.6-12.0); Monocytes % 7.4 % (1.7-12.7); NRBC # 0.04 10*3/uL; Platelet Count 187 T/CUMM (130-400); Red Blood Count 3.48 MC/CUMM (3.8-5.5); Red Cell Distribution Width 17.6 % (9.3-17.3)
[2018-10-21 06:06] LABS: Calcium 9.3 MG/DL (8.5-10.1); Osmolality,Calculated 292.8 MOS/KG (273-304)
[2018-10-21] MEDS: POTASSIUM CHLORIDE 20 MEQ TABLET PO PRN ×2 (06:34→08:56)
[2018-10-21] MEDS: AZITHROMYCIN 250 MG TABLET PO SCH (08:54)
[2018-10-21] MEDS: DILTIAZEM CD 120 MG CAPSULE PO SCH (08:54)
[2018-10-21] MEDS: ASPIRIN EC 81 MG TABLET PO SCH (08:55)
[2018-10-21] MEDS: GABAPENTIN 100 MG CAPSULE PO SCH ×3 (08:55→21:19)
[2018-10-21] MEDS: PANTOPRAZOLE 40 MG TABLET PO SCH (08:56)
[2018-10-21] MEDS: METOPROLOL TARTRATE 50 MG TABLET PO SCH ×2 (08:56→21:20)
[2018-10-21] MEDS: LEVOTHYROXINE 25 MCG TABLET PO SCH (08:57)
[2018-10-21] MEDS: INSULIN LISPRO 100 UNIT/ML SUBCUT SCH ×4 (08:57→23:40)
[2018-10-21] MEDS: LISINOPRIL 10 MG TABLET PO SCH ×2 (08:57→21:19)
[2018-10-21] MEDS: GLIMEPIRIDE 2 MG TABLET PO SCH (08:57)
[2018-10-21] MEDS: FUROSEMIDE 40 MG/4 ML VIAL IV SCH (09:01)
[2018-10-21] MEDS ORDERED: POTASSIUM CHLORIDE 20 MEQ TABLET PO ONE (12:00)
[2018-10-21] MEDS: RIVAROXABAN 20 MG TABLET PO SCH (17:15)
[2018-10-21] MEDS: cefTRIAXone 1,000 MG in SYRINGE 1 EACH IV SCH (17:20)
[2018-10-21] MEDS ORDERED: CLORAZEPATE 3.75 MG TABLET PO ONE (20:03)
[2018-10-21] MEDS: cloNIDine 0.1 MG TABLET PO SCH (21:19)
[2018-10-21] MEDS: SIMVASTATIN 10 MG TABLET PO SCH (21:20)
[2018-10-22] MEDS: hydrALAZINE 20 MG/1 ML VIAL IV PRN (00:44)
[2018-10-22 05:39] LABS: Basophils % 0.3 % (0.0-0.8); Eosinophils # 0.1 10*3/uL (0.0-0.87); Eosinophils % 1.2 % (0.00-10.9); Hematocrit 32.7 VOL% (35.7-47.0); Hemoglobin 9.8 GM/DL (12.0-16.0); Immature Granulocytes % 0.3 %; Immature Granulocytes Absolute 0.03 #; Lymphocytes # 1.5 10*3/uL (1.4-4.0); Lymphocytes % 17.7 % (21.3-54.2); Mean Corpuscular Volume 84.7 FL (87-102); Mean Platelet Volume 11.6 FL (9.6-12.0); Monocytes % 5.1 % (1.7-12.7); NRBC # 0.04 10*3/uL; Neutrophils % 75.4 % (38.7-73.9); Platelet Count 246 T/CUMM (130-400); Red Blood Count 3.86 MC/CUMM (3.8-5.5); Red Cell Distribution Width 17.7 % (9.3-17.3); White Blood Count 8.7 T/CUMM (4-12)
[2018-10-22 06:05] LABS: Calcium 9.6 MG/DL (8.5-10.1); Osmolality,Calculated 294.1 MOS/KG (273-304)
[2018-10-22] MEDS: ALBUTEROL 0.63 MG/3 ML NEB RESP TX SCH ×4 (07:58→19:40)
[2018-10-22] MEDS: INSULIN LISPRO 100 UNIT/ML SUBCUT SCH ×4 (08:56→22:42)
[2018-10-22] MEDS: LEVOTHYROXINE 25 MCG TABLET PO SCH (08:57)
[2018-10-22] MEDS: GABAPENTIN 100 MG CAPSULE PO SCH ×3 (08:57→22:45)
[2018-10-22] MEDS: GLIMEPIRIDE 2 MG TABLET PO SCH (08:58)
[2018-10-22] MEDS: LISINOPRIL 10 MG TABLET PO SCH ×2 (08:58→22:45)
[2018-10-22] MEDS: ASPIRIN EC 81 MG TABLET PO SCH (08:58)
[2018-10-22] MEDS: PANTOPRAZOLE 40 MG TABLET PO SCH (08:58)
[2018-10-22] MEDS: DILTIAZEM CD 120 MG CAPSULE PO SCH (08:59)
[2018-10-22] MEDS: FUROSEMIDE 40 MG/4 ML VIAL IV SCH (08:59)
[2018-10-22] MEDS: METOPROLOL TARTRATE 50 MG TABLET PO SCH ×2 (08:59→22:45)
[2018-10-22] MEDS: AZITHROMYCIN 250 MG TABLET PO SCH (08:59)
[2018-10-22] MEDS: RIVAROXABAN 20 MG TABLET PO SCH (16:43)
[2018-10-22] MEDS: cefTRIAXone 1,000 MG in SYRINGE 1 EACH IV SCH (16:43)
[2018-10-22] MEDS ORDERED: ZALEPLON 5 MG CAPSULE PO PRN (21:37)
[2018-10-22] MEDS: cloNIDine 0.1 MG TABLET PO SCH (22:45)
[2018-10-22] MEDS: SIMVASTATIN 10 MG TABLET PO SCH (22:45)
[2018-10-23] MEDS: ALBUTEROL 0.63 MG/3 ML NEB RESP TX SCH ×2 (00:05→07:40)
[2018-10-23 04:49] LABS: Basophils % 0.6 % (0.0-0.8); Eosinophils # 0.1 10*3/uL (0.0-0.87); Hematocrit 31.4 VOL% (35.7-47.0); Hemoglobin 9.2 GM/DL (12.0-16.0); Immature Granulocytes % 0.4 %; Immature Granulocytes Absolute 0.02 #; Lymphocytes # 1.4 10*3/uL (1.4-4.0); Lymphocytes % 26.7 % (21.3-54.2); Mean Corpuscular HGB Conc 29.3 GM/DL (32-36); Mean Corpuscular Volume 85.8 FL (87-102); Mean Platelet Volume 11.2 FL (9.6-12.0); Monocytes % 9.1 % (1.7-12.7); NRBC # 0.02 10*3/uL; Neutrophils % 61.2 % (38.7-73.9); Platelet Count 214 T/CUMM (130-400); Red Blood Count 3.66 MC/CUMM (3.8-5.5); Red Cell Distribution Width 17.2 % (9.3-17.3); White Blood Count 5.4 T/CUMM (4-12)
[2018-10-23 05:13] LABS: Calcium 9.2 MG/DL (8.5-10.1)
[2018-10-23 08:29] VITALS: BP 144/98
[2018-10-23] MEDS: METOPROLOL TARTRATE 50 MG TABLET PO SCH (08:31)
[2018-10-23] MEDS: GLIMEPIRIDE 2 MG TABLET PO SCH (08:31)
[2018-10-23] MEDS: AZITHROMYCIN 250 MG TABLET PO SCH (08:32)
[2018-10-23] MEDS: GABAPENTIN 100 MG CAPSULE PO SCH (08:32)
[2018-10-23] MEDS: DILTIAZEM CD 120 MG CAPSULE PO SCH (08:32)
[2018-10-23] MEDS: PANTOPRAZOLE 40 MG TABLET PO SCH (08:32)
[2018-10-23] MEDS: LISINOPRIL 10 MG TABLET PO SCH (08:32)
[2018-10-23] MEDS: INSULIN LISPRO 100 UNIT/ML SUBCUT SCH ×2 (08:33→12:27)
[2018-10-23] MEDS: ASPIRIN EC 81 MG TABLET PO SCH (08:33)
[2018-10-23] MEDS: LEVOTHYROXINE 25 MCG TABLET PO SCH (08:33)
[2018-10-23] MEDS: FUROSEMIDE 40 MG/4 ML VIAL IV SCH (08:33)
== END 2018-10-23 12:21 | disposition home or self-care (01) | DRG 194 ==
LOC: N.EDINP 02:08 → N.ED 02:08 → N.TELEN 05:15 → SUATTDRO 10-21 14:37
PROVIDERS: ADMIT Internal Medicine; ATTEND Internal Medicine Geriatric Medicine

== ENCOUNTER 2018-11-22 10:54 | Inpatient (IN) ==
[2018-11-22] MEDS ORDERED: DILTIAZEM 50 MG/10 ML VIAL IV STA (11:40)
[2018-11-22 12:02] LABS: Basophils % 0.4 % (0.0-0.8); Eosinophils % 0.1 % (0.00-10.9); Hemoglobin 8.2 GM/DL (12.0-16.0); Immature Granulocytes % 0.3 %; Immature Granulocytes Absolute 0.02 #; Lymphocytes # 1.3 10*3/uL (1.4-4.0); Mean Corpuscular HGB Conc 29.3 GM/DL (32-36); Mean Corpuscular Volume 81.9 FL (87-102); Mean Platelet Volume 10.8 FL (9.6-12.0); Monocytes % 5.2 % (1.7-12.7); NRBC # 0.02 10*3/uL; Platelet Count 221 T/CUMM (130-400); Red Blood Count 3.42 MC/CUMM (3.8-5.5); Red Cell Distribution Width 17.2 % (9.3-17.3); White Blood Count 7.2 T/CUMM (4-12)
[2018-11-22 12:15] LABS: INR 1.2; PT Patient Result 13.5 SECS (9.6-12.2); Partial Thromboplastin Time 28.7 SECS (20.8-36.0)
[2018-11-22] MEDS: dilTIAZem Drip 125 MG/125 ML PREMIX IV SCH ×2 (12:19→21:10)
[2018-11-22 12:56] LABS: Albumin 2.9 G/DL (3.4-5.0); Bilirubin,Total 0.5 MG/DL (0.2-1.0); Calcium 8.5 MG/DL (8.5-10.1); Thyroid Stimulating Hormone 0.568 uIU/ml (0.358-3.74); Total Protein 5.9 G/DL (6.4-8.3)
[2018-11-22] MEDS ORDERED: LEVALBUTEROL 1.25 MG/3 ML NEB RESP TX STA (12:58)
[2018-11-22] MEDS ORDERED: FUROSEMIDE 40 MG/4 ML VIAL IV STA (12:59)
[2018-11-22] MEDS ORDERED: ASPIRIN 325 MG TABLET PO STA (13:08)
[2018-11-22] MEDS ORDERED: NITROGLYCERIN SL 0.4 MG TABLET SL PRN (14:11)
[2018-11-22] MEDS ORDERED: DEXTROSE 50% 25 GM/50 ML VIAL IV PRN (14:27)
[2018-11-22] MEDS ORDERED: GLUCAGON 1 MG VIAL IM PRN (14:27)
[2018-11-22] MEDS ORDERED: POTASSIUM CHLORIDE RIDER 10 MEQ in PREMIX 1 EACH IV PRN (14:27)
[2018-11-22] MEDS ORDERED: MAGNESIUM SULF RIDER 2 GM in PREMIX 1 EACH IV PRN (14:27)
[2018-11-22] MEDS ORDERED: MAGNESIUM SULF RIDER 4 GM in PREMIX 1 EACH IV PRN (14:27)
[2018-11-22] MEDS ORDERED: ALBUTEROL 2.5 MG/3 ML NEB RESP TX PRN (14:27)
[2018-11-22 14:31] LABS: Barbiturates Screen,Urine Negative (Negative); Benzodiazepines Screen,Urine Positive (Negative); Cannabinoid Screen,Urine Negative (Negative); Opiate Screen,Urine Positive (Negative); Phencyclidine Screen,Urine Negative (Negative)
[2018-11-22] MEDS ORDERED: POTASSIUM CHLORIDE 20 MEQ TABLET PO ONE (15:00)
[2018-11-22] MEDS ORDERED: MAGNESIUM SULF RIDER 2 GM in PREMIX 1 EACH IV ONE (15:01)
[2018-11-22] MEDS: FUROSEMIDE 40 MG/4 ML VIAL IV SCH (15:46)
[2018-11-22] MEDS: RIVAROXABAN 20 MG TABLET PO SCH (16:17)
[2018-11-22] MEDS: MAGNESIUM OXIDE 400 MG TABLET PO SCH ×2 (16:17→21:08)
[2018-11-22] MEDS: INSULIN REGULAR 100 UNIT/ML SUBCUT SCH ×2 (18:01→21:09)
[2018-11-22] MEDS: ALBUTEROL/IPRATROPIUM 3 ML NEB RESP TX SCH (20:08)
[2018-11-22] MEDS: busPIRone 15 MG TABLET PO SCH (21:08)
[2018-11-22] MEDS: LISINOPRIL 10 MG TABLET PO SCH (21:08)
[2018-11-22] MEDS: MEMANTINE 10 MG TABLET PO SCH (21:08)
[2018-11-22] MEDS: PANTOPRAZOLE 40 MG TABLET PO SCH (21:08)
[2018-11-22] MEDS: cloNIDine 0.1 MG TABLET PO SCH (21:08)
[2018-11-22] MEDS: SERTRALINE 50 MG TABLET PO SCH (21:08)
[2018-11-22] MEDS: rOPINIRole 0.25 MG TABLET PO SCH (21:08)
[2018-11-22] MEDS: METOPROLOL TARTRATE 25 MG TABLET PO SCH (21:08)
[2018-11-22] MEDS: ASCORBIC ACID 500 MG TABLET PO SCH (21:08)
[2018-11-22] MEDS: DOCUSATE SODIUM 100 MG CAPSULE PO SCH (21:09)
[2018-11-22] MEDS: SIMVASTATIN 10 MG TABLET PO SCH (21:09)
[2018-11-22] MEDS: POTASSIUM CHLORIDE 20 MEQ TABLET PO SCH (21:09)
[2018-11-23] MEDS: ALBUTEROL/IPRATROPIUM 3 ML NEB RESP TX SCH ×4 (01:20→19:29)
[2018-11-23 03:40] LABS: Apearance,Urine Slightly Hazy (Clear); Bilirubin,Urine Negative (Negative); Blood, Urine Large mg/dL (Negative); Glucose,Urine (UA) >=500 mg/dL (Negative); Ketones,Urine Negative (Negative); Mucus,Urine Occasional /LPF (Occasional); Nitrite,Urine Negative (Negative); Protein,Urine 100 MG/DL; RBC,Urine 12556 /HPF (0-4); Urine Color Red (Yellow); Urine Specific Gravity 1.018 (1.001-1.035); Urine Urobilinogen < 2.0 EU/DL (0.2-1.0); WBC,Urine 107 /HPF (0-6)
[2018-11-23 05:16] LABS: Basophils % 0.3 % (0.0-0.8); Eosinophils % 0.5 % (0.00-10.9); Hematocrit 28.3 VOL% (35.7-47.0); Hemoglobin 8.2 GM/DL (12.0-16.0); Immature Granulocytes % 0.4 %; Immature Granulocytes Absolute 0.03 #; Lymphocytes # 1.8 10*3/uL (1.4-4.0); Lymphocytes % 24.2 % (21.3-54.2); Mean Corpuscular Volume 82.5 FL (87-102); Mean Platelet Volume 11.5 FL (9.6-12.0); Monocytes % 2.8 % (1.7-12.7); NRBC # 0.03 10*3/uL; Neutrophils % 71.8 % (38.7-73.9); Platelet Count 245 T/CUMM (130-400); Red Blood Count 3.43 MC/CUMM (3.8-5.5); Red Cell Distribution Width 17.6 % (9.3-17.3); White Blood Count 7.5 T/CUMM (4-12)
[2018-11-23 05:51] LABS: % Iron Saturation 6.9 % (18-50); Ferritin 47.4 ng/ml (8-252)
[2018-11-23 05:52] LABS: Albumin 2.8 G/DL (3.4-5.0); Bilirubin,Total 0.7 MG/DL (0.2-1.0); Calcium 8.7 MG/DL (8.5-10.1); Osmolality,Calculated 292.8 MOS/KG (273-304); Total Protein 6.2 G/DL (6.4-8.3)
[2018-11-23] MEDS: FUROSEMIDE 40 MG/4 ML VIAL IV SCH ×2 (07:07→16:12)
[2018-11-23] MEDS: cefTRIAXone 1,000 MG in SYRINGE 1 EACH IV SCH (08:34)
[2018-11-23] MEDS: INSULIN REGULAR 100 UNIT/ML SUBCUT SCH ×4 (08:34→21:08)
[2018-11-23] MEDS: LEVOTHYROXINE 25 MCG TABLET PO SCH (08:35)
[2018-11-23] MEDS: ASPIRIN EC 81 MG TABLET PO SCH (08:35)
[2018-11-23] MEDS: MAGNESIUM OXIDE 400 MG TABLET PO SCH ×3 (08:35→21:00)
[2018-11-23] MEDS: ASCORBIC ACID 500 MG TABLET PO SCH ×2 (08:36→21:01)
[2018-11-23] MEDS: LISINOPRIL 10 MG TABLET PO SCH (08:36)
[2018-11-23] MEDS: busPIRone 15 MG TABLET PO SCH ×2 (08:36→20:57)
[2018-11-23] MEDS: DONEPEZIL 10 MG TABLET PO SCH (08:36)
[2018-11-23] MEDS: POTASSIUM CHLORIDE 20 MEQ TABLET PO SCH ×2 (08:37→21:00)
[2018-11-23] MEDS: DOCUSATE SODIUM 100 MG CAPSULE PO SCH ×2 (08:37→20:58)
[2018-11-23] MEDS: POTASSIUM CHLORIDE 20 MEQ TABLET PO PRN ×3 (08:37→10:34)
[2018-11-23] MEDS: MEMANTINE 10 MG TABLET PO SCH ×2 (08:37→21:00)
[2018-11-23] MEDS: PANTOPRAZOLE 40 MG TABLET PO SCH ×2 (08:37→21:00)
[2018-11-23] MEDS: METOPROLOL TARTRATE 25 MG TABLET PO SCH ×2 (08:37→21:00)
[2018-11-23] MEDS: DILTIAZEM 60 MG TABLET PO SCH ×4 (10:33→20:57)
[2018-11-23] MEDS: dilTIAZem Drip 125 MG/125 ML PREMIX IV SCH (12:36)
[2018-11-23] MEDS: cloNIDine 0.1 MG TABLET PO SCH (20:58)
[2018-11-23] MEDS: rOPINIRole 0.25 MG TABLET PO SCH (21:00)
[2018-11-23] MEDS: SIMVASTATIN 10 MG TABLET PO SCH (21:01)
[2018-11-23] MEDS: SERTRALINE 50 MG TABLET PO SCH (21:01)
[2018-11-23] MEDS: ZALEPLON 5 MG CAPSULE PO PRN (22:15)
[2018-11-24] MEDS: ALBUTEROL/IPRATROPIUM 3 ML NEB RESP TX SCH ×4 (00:42→18:58)
[2018-11-24 05:08] LABS: Basophils % 0.2 % (0.0-0.8); Eosinophils % 0.2 % (0.00-10.9); Hematocrit 29.9 VOL% (35.7-47.0); Hemoglobin 8.7 GM/DL (12.0-16.0); Immature Granulocytes % 0.4 %; Immature Granulocytes Absolute 0.04 #; Lymphocytes # 1.3 10*3/uL (1.4-4.0); Mean Corpuscular HGB Conc 29.1 GM/DL (32-36); Mean Corpuscular Volume 84.5 FL (87-102); Mean Platelet Volume 10.7 FL (9.6-12.0); Monocytes % 5.4 % (1.7-12.7); NRBC # 0.08 10*3/uL; Neutrophils % 80.8 % (38.7-73.9); Platelet Count 238 T/CUMM (130-400); Red Blood Count 3.54 MC/CUMM (3.8-5.5); Red Cell Distribution Width 18.1 % (9.3-17.3); White Blood Count 9.8 T/CUMM (4-12)
[2018-11-24 05:22] LABS: Albumin 2.8 G/DL (3.4-5.0); Bilirubin,Total 0.7 MG/DL (0.2-1.0); Calcium 9.3 MG/DL (8.5-10.1); Osmolality,Calculated 290.1 MOS/KG (273-304); Total Protein 6.6 G/DL (6.4-8.3)
[2018-11-24] MEDS: cefTRIAXone 1,000 MG in SYRINGE 1 EACH IV SCH (08:45)
[2018-11-24] MEDS: FUROSEMIDE 40 MG/4 ML VIAL IV SCH ×2 (08:45→16:49)
[2018-11-24] MEDS: INSULIN REGULAR 100 UNIT/ML SUBCUT SCH ×4 (08:46→21:33)
[2018-11-24] MEDS: DILTIAZEM 60 MG TABLET PO SCH ×4 (08:47→21:33)
[2018-11-24] MEDS: DONEPEZIL 10 MG TABLET PO SCH (08:47)
[2018-11-24] MEDS: LISINOPRIL 10 MG TABLET PO SCH (08:47)
[2018-11-24] MEDS: METOPROLOL TARTRATE 25 MG TABLET PO SCH ×2 (08:47→21:32)
[2018-11-24] MEDS: busPIRone 15 MG TABLET PO SCH ×2 (08:47→21:33)
[2018-11-24] MEDS: ASCORBIC ACID 500 MG TABLET PO SCH ×2 (08:47→21:35)
[2018-11-24] MEDS: MEMANTINE 10 MG TABLET PO SCH ×2 (08:47→21:35)
[2018-11-24] MEDS: POTASSIUM CHLORIDE 20 MEQ TABLET PO SCH ×2 (08:48→21:33)
[2018-11-24] MEDS: MAGNESIUM OXIDE 400 MG TABLET PO SCH ×3 (08:48→21:37)
[2018-11-24] MEDS: LEVOTHYROXINE 25 MCG TABLET PO SCH (08:48)
[2018-11-24] MEDS: ASPIRIN EC 81 MG TABLET PO SCH (08:48)
[2018-11-24] MEDS: PANTOPRAZOLE 40 MG TABLET PO SCH ×2 (08:48→21:33)
[2018-11-24] MEDS: DOCUSATE SODIUM 100 MG CAPSULE PO SCH ×2 (08:48→21:33)
[2018-11-24] MEDS ORDERED: guaiFENesin 200 MG/10 ML UDCUP PO PRN (10:18)
[2018-11-24] MEDS: dilTIAZem Drip 125 MG/125 ML PREMIX IV SCH (12:56)
[2018-11-24] MEDS: RIVAROXABAN 20 MG TABLET PO SCH (16:48)
[2018-11-24] MEDS: rOPINIRole 0.25 MG TABLET PO SCH (21:32)
[2018-11-24] MEDS: cloNIDine 0.1 MG TABLET PO SCH (21:33)
[2018-11-24] MEDS: SERTRALINE 50 MG TABLET PO SCH (21:35)
[2018-11-24] MEDS: ZALEPLON 5 MG CAPSULE PO PRN (21:36)
[2018-11-24] MEDS: SIMVASTATIN 10 MG TABLET PO SCH (21:42)
[2018-11-25] MEDS: ALBUTEROL/IPRATROPIUM 3 ML NEB RESP TX SCH ×4 (00:29→20:14)
[2018-11-25 05:51] LABS: Hematocrit 31.4 VOL% (35.7-47.0); Hemoglobin 9.2 GM/DL (12.0-16.0); Red Blood Count 3.73 MC/CUMM (3.8-5.5); White Blood Count 9.1 T/CUMM (4-12)
[2018-11-25 05:52] LABS: Basophils % 0.4 % (0.0-0.8); Eosinophils % 0.4 % (0.00-10.9); Immature Granulocytes % 0.6 %; Immature Granulocytes Absolute 0.05 #; Lymphocytes # 1.6 10*3/uL (1.4-4.0); Lymphocytes % 17.2 % (21.3-54.2); Mean Corpuscular HGB Conc 29.3 GM/DL (32-36); Mean Corpuscular Volume 84.2 FL (87-102); Mean Platelet Volume 10.5 FL (9.6-12.0); Monocytes % 5.3 % (1.7-12.7); NRBC # 0.05 10*3/uL; Neutrophils % 76.1 % (38.7-73.9); Platelet Count 266 T/CUMM (130-400); Red Cell Distribution Width 18.2 % (9.3-17.3)
[2018-11-25 06:13] LABS: Albumin 2.9 G/DL (3.4-5.0); Bilirubin,Total 0.9 MG/DL (0.2-1.0); Calcium 9.9 MG/DL (8.5-10.1); Osmolality,Calculated 287.4 MOS/KG (273-304); Total Protein 6.9 G/DL (6.4-8.3)
[2018-11-25] MEDS: ACETAMINOPHEN 500 MG TABLET PO PRN (07:13)
[2018-11-25] MEDS: FUROSEMIDE 40 MG/4 ML VIAL IV SCH ×2 (08:58→16:54)
[2018-11-25] MEDS: cefTRIAXone 1,000 MG in SYRINGE 1 EACH IV SCH (08:59)
[2018-11-25] MEDS: INSULIN REGULAR 100 UNIT/ML SUBCUT SCH ×4 (08:59→22:29)
[2018-11-25] MEDS: LEVOTHYROXINE 25 MCG TABLET PO SCH (09:00)
[2018-11-25] MEDS: MEMANTINE 10 MG TABLET PO SCH ×2 (09:00→20:41)
[2018-11-25] MEDS: LISINOPRIL 10 MG TABLET PO SCH (09:00)
[2018-11-25] MEDS: DONEPEZIL 10 MG TABLET PO SCH (09:00)
[2018-11-25] MEDS: POTASSIUM CHLORIDE 20 MEQ TABLET PO SCH ×2 (09:01→20:40)
[2018-11-25] MEDS: DOCUSATE SODIUM 100 MG CAPSULE PO SCH ×2 (09:01→20:39)
[2018-11-25] MEDS: ASCORBIC ACID 500 MG TABLET PO SCH ×2 (09:01→20:39)
[2018-11-25] MEDS: PANTOPRAZOLE 40 MG TABLET PO SCH ×2 (09:02→20:41)
[2018-11-25] MEDS: ASPIRIN EC 81 MG TABLET PO SCH (09:02)
[2018-11-25] MEDS: MAGNESIUM OXIDE 400 MG TABLET PO SCH ×3 (09:02→20:40)
[2018-11-25] MEDS: busPIRone 15 MG TABLET PO SCH ×2 (09:02→20:39)
[2018-11-25] MEDS: METOPROLOL TARTRATE 25 MG TABLET PO SCH ×2 (09:02→20:41)
[2018-11-25] MEDS: DILTIAZEM 60 MG TABLET PO SCH ×4 (09:02→20:39)
[2018-11-25] MEDS: dilTIAZem Drip 125 MG/125 ML PREMIX IV SCH (12:08)
[2018-11-25] MEDS ORDERED: ACETAMINOPHEN 500 MG TABLET PO SCH (14:00)
[2018-11-25] MEDS: ZALEPLON 5 MG CAPSULE PO PRN (20:38)
[2018-11-25] MEDS: rOPINIRole 0.25 MG TABLET PO SCH (20:38)
[2018-11-25] MEDS: SIMVASTATIN 10 MG TABLET PO SCH (20:41)
[2018-11-25] MEDS: cloNIDine 0.1 MG TABLET PO SCH (20:41)
[2018-11-25] MEDS: SERTRALINE 50 MG TABLET PO SCH (20:41)
[2018-11-26] MEDS: ALBUTEROL/IPRATROPIUM 3 ML NEB RESP TX SCH ×4 (01:33→19:07)
[2018-11-26 08:23] LABS: Basophils % 0.3 % (0.0-0.8); Eosinophils % 0.6 % (0.00-10.9); Hematocrit 32.8 VOL% (35.7-47.0); Immature Granulocytes % 0.3 %; Immature Granulocytes Absolute 0.02 #; Lymphocytes # 0.9 10*3/uL (1.4-4.0); Mean Corpuscular Volume 84.1 FL (87-102); Mean Platelet Volume 10.9 FL (9.6-12.0); Monocytes % 5.3 % (1.7-12.7); NRBC # 0.02 10*3/uL; Neutrophils % 79.5 % (38.7-73.9); Platelet Count 219 T/CUMM (130-400); White Blood Count 6.7 T/CUMM (4-12)
[2018-11-26 08:26] LABS: Hemoglobin 9.2 GM/DL (12.0-16.0)
[2018-11-26 08:39] LABS: Calcium 9.3 MG/DL (8.5-10.1); Osmolality,Calculated 288.4 MOS/KG (273-304)
[2018-11-26 08:40] LABS: % Iron Saturation 6.6 % (18-50); Ferritin 58.1 ng/ml (8-252)
[2018-11-26 08:47] LABS: Apearance,Urine CLEAR (Clear); Bacteria,Urine Occasional /HPF (Few); Bilirubin,Urine Negative (Negative); Blood, Urine Negative (Negative); Glucose,Urine (UA) Negative (Negative); Ketones,Urine 5 mg/dL (Negative); Nitrite,Urine Negative (Negative); Protein,Urine Negative; RBC,Urine <1 /HPF (0-4); Squamous Epithelial Cell,Urine Occasional /HPF (0-10); Urine Color Yellow (Yellow); Urine Urobilinogen < 2.0 EU/DL (0.2-1.0); WBC,Urine 1 /HPF (0-6)
[2018-11-26] MEDS: FUROSEMIDE 40 MG/4 ML VIAL IV SCH (09:15)
[2018-11-26 09:19] LABS: Hypochromasia 1+; Platelet Estimate Adequate
[2018-11-26] MEDS: DONEPEZIL 10 MG TABLET PO SCH (09:26)
[2018-11-26] MEDS: DILTIAZEM 60 MG TABLET PO SCH (09:26)
[2018-11-26] MEDS: busPIRone 15 MG TABLET PO SCH ×2 (09:26→21:08)
[2018-11-26] MEDS: ASPIRIN EC 81 MG TABLET PO SCH (09:26)
[2018-11-26] MEDS: DOCUSATE SODIUM 100 MG CAPSULE PO SCH ×2 (09:27→21:09)
[2018-11-26] MEDS: METOPROLOL TARTRATE 25 MG TABLET PO SCH (09:28)
[2018-11-26] MEDS: POTASSIUM CHLORIDE 20 MEQ TABLET PO SCH (09:28)
[2018-11-26] MEDS: MAGNESIUM OXIDE 400 MG TABLET PO SCH ×3 (09:29→21:08)
[2018-11-26] MEDS: PANTOPRAZOLE 40 MG TABLET PO SCH ×2 (09:30→21:07)
[2018-11-26] MEDS: MEMANTINE 10 MG TABLET PO SCH ×2 (09:30→21:09)
[2018-11-26] MEDS: LISINOPRIL 10 MG TABLET PO SCH (09:30)
[2018-11-26] MEDS: ASCORBIC ACID 500 MG TABLET PO SCH ×2 (09:31→21:07)
[2018-11-26] MEDS: LEVOTHYROXINE 25 MCG TABLET PO SCH (09:31)
[2018-11-26] MEDS: NITROFURANTOIN MACRO/MONO 100 MG CAPSULE PO SCH ×2 (09:32→21:09)
[2018-11-26] MEDS: INSULIN REGULAR 100 UNIT/ML SUBCUT SCH ×4 (10:05→21:07)
[2018-11-26] MEDS: dilTIAZem Drip 125 MG/125 ML PREMIX IV SCH (13:05)
[2018-11-26] MEDS: ACETAMINOPHEN 500 MG TABLET PO PRN (13:32)
[2018-11-26] MEDS: DILTIAZEM 90 MG TABLET PO SCH ×2 (15:16→21:08)
[2018-11-26] MEDS: FUROSEMIDE 40 MG TABLET PO SCH (17:12)
[2018-11-26] MEDS: BISOPROLOL 5 MG TABLET PO SCH ×2 (18:34→21:08)
[2018-11-26] MEDS: SERTRALINE 50 MG TABLET PO SCH (21:08)
[2018-11-26] MEDS: rOPINIRole 0.25 MG TABLET PO SCH (21:08)
[2018-11-26] MEDS: ZALEPLON 5 MG CAPSULE PO PRN (21:08)
[2018-11-26] MEDS: SIMVASTATIN 10 MG TABLET PO SCH (21:09)
[2018-11-26] MEDS: cloNIDine 0.1 MG TABLET PO SCH (21:09)
[2018-11-27] MEDS: ALBUTEROL/IPRATROPIUM 3 ML NEB RESP TX SCH ×4 (00:04→21:08)
[2018-11-27 05:01] LABS: Calcium 9.1 MG/DL (8.5-10.1); Osmolality,Calculated 287.4 MOS/KG (273-304)
[2018-11-27 05:36] LABS: Basophils % 0.4 % (0.0-0.8); Eosinophils # 0.1 10*3/uL (0.0-0.87); Eosinophils % 1.6 % (0.00-10.9); Hematocrit 31.3 VOL% (35.7-47.0); Immature Granulocytes % 0.4 %; Immature Granulocytes Absolute 0.02 #; Lymphocytes # 1.2 10*3/uL (1.4-4.0); Lymphocytes % 22.1 % (21.3-54.2); Mean Corpuscular HGB Conc 28.1 GM/DL (32-36); Mean Platelet Volume 11.5 FL (9.6-12.0); Monocytes % 8.3 % (1.7-12.7); NRBC # 0.02 10*3/uL; Neutrophils % 67.2 % (38.7-73.9); Platelet Count 260 T/CUMM (130-400); Red Blood Count 3.77 MC/CUMM (3.8-5.5); Red Cell Distribution Width 17.9 % (9.3-17.3); White Blood Count 5.5 T/CUMM (4-12)
[2018-11-27 05:37] LABS: Hemoglobin 8.8 GM/DL (12.0-16.0)
[2018-11-27 05:49] LABS: Hypochromasia 1+; Platelet Estimate Adequate
[2018-11-27] MEDS: INSULIN REGULAR 100 UNIT/ML SUBCUT SCH ×4 (08:45→21:39)
[2018-11-27] MEDS: ASCORBIC ACID 500 MG TABLET PO SCH ×2 (08:46→21:17)
[2018-11-27] MEDS: DILTIAZEM 90 MG TABLET PO SCH ×3 (08:46→21:18)
[2018-11-27] MEDS: DOCUSATE SODIUM 100 MG CAPSULE PO SCH ×2 (08:46→22:07)
[2018-11-27] MEDS: LISINOPRIL 10 MG TABLET PO SCH (08:46)
[2018-11-27] MEDS: ASPIRIN EC 81 MG TABLET PO SCH (08:46)
[2018-11-27] MEDS: POTASSIUM CHLORIDE 20 MEQ TABLET PO SCH (08:46)
[2018-11-27] MEDS: FUROSEMIDE 40 MG TABLET PO SCH ×2 (08:47→15:04)
[2018-11-27] MEDS: MAGNESIUM OXIDE 400 MG TABLET PO SCH ×3 (08:47→21:15)
[2018-11-27] MEDS: DONEPEZIL 10 MG TABLET PO SCH (08:47)
[2018-11-27] MEDS: MEMANTINE 10 MG TABLET PO SCH ×2 (08:47→21:18)
[2018-11-27] MEDS: PANTOPRAZOLE 40 MG TABLET PO SCH ×2 (08:47→21:17)
[2018-11-27] MEDS: LEVOTHYROXINE 25 MCG TABLET PO SCH (08:47)
[2018-11-27] MEDS: BISOPROLOL 5 MG TABLET PO SCH ×3 (08:48→21:16)
[2018-11-27] MEDS: busPIRone 15 MG TABLET PO SCH ×2 (08:49→21:15)
[2018-11-27] MEDS: NITROFURANTOIN MACRO/MONO 100 MG CAPSULE PO SCH ×2 (08:52→21:39)
[2018-11-27] MEDS: MONTELUKAST 10 MG TABLET PO SCH (09:39)
[2018-11-27] MEDS: cefTRIAXone 1,000 MG in SYRINGE 1 EACH IV SCH (11:00)
[2018-11-27] MEDS: CLINDAMYCIN INJ 300 MG in PREMIX 1 EACH IV SCH ×2 (11:10→17:57)
[2018-11-27] MEDS ORDERED: BISOPROLOL 5 MG TABLET PO ONE (12:01)
[2018-11-27] MEDS: dilTIAZem Drip 125 MG/125 ML PREMIX IV SCH (12:10)
[2018-11-27] MEDS: rOPINIRole 0.25 MG TABLET PO SCH (21:16)
[2018-11-27] MEDS: cloNIDine 0.1 MG TABLET PO SCH (21:17)
[2018-11-27] MEDS: ZALEPLON 5 MG CAPSULE PO PRN (21:18)
[2018-11-27] MEDS: SERTRALINE 50 MG TABLET PO SCH (21:18)
[2018-11-27] MEDS: SIMVASTATIN 10 MG TABLET PO SCH (21:18)
[2018-11-27] MEDS: ACETAMINOPHEN 500 MG TABLET PO PRN (21:20)
[2018-11-28] MEDS: ALBUTEROL/IPRATROPIUM 3 ML NEB RESP TX SCH ×4 (00:33→20:14)
[2018-11-28] MEDS ORDERED: IBUPROFEN 800 MG TABLET PO ONE (02:15)
[2018-11-28] MEDS: CLINDAMYCIN INJ 300 MG in PREMIX 1 EACH IV SCH ×3 (02:30→18:38)
[2018-11-28 05:10] LABS: Basophils % 0.3 % (0.0-0.8); Eosinophils # 0.1 10*3/uL (0.0-0.87); Eosinophils % 1.5 % (0.00-10.9); Hematocrit 28.6 VOL% (35.7-47.0); Hemoglobin 8.5 GM/DL (12.0-16.0); Immature Granulocytes % 0.2 %; Immature Granulocytes Absolute 0.01 #; Lymphocytes # 1.5 10*3/uL (1.4-4.0); Lymphocytes % 24.9 % (21.3-54.2); Mean Corpuscular HGB Conc 29.7 GM/DL (32-36); Mean Corpuscular Volume 83.4 FL (87-102); Mean Platelet Volume 11.5 FL (9.6-12.0); Monocytes % 7.2 % (1.7-12.7); NRBC # 0.02 10*3/uL; Neutrophils % 65.9 % (38.7-73.9); Platelet Count 264 T/CUMM (130-400); Red Blood Count 3.43 MC/CUMM (3.8-5.5); Red Cell Distribution Width 17.4 % (9.3-17.3); White Blood Count 5.9 T/CUMM (4-12)
[2018-11-28 05:12] LABS: Osmolality,Calculated 291.3 MOS/KG (273-304)
[2018-11-28] MEDS: FUROSEMIDE 40 MG TABLET PO SCH ×2 (09:04→15:36)
[2018-11-28] MEDS: ASCORBIC ACID 500 MG TABLET PO SCH ×2 (09:04→23:09)
[2018-11-28] MEDS: MEMANTINE 10 MG TABLET PO SCH ×2 (09:04→23:12)
[2018-11-28] MEDS: busPIRone 15 MG TABLET PO SCH ×2 (09:06→23:07)
[2018-11-28] MEDS: DONEPEZIL 10 MG TABLET PO SCH (09:06)
[2018-11-28] MEDS: BISOPROLOL 5 MG TABLET PO SCH ×2 (09:06→23:12)
[2018-11-28] MEDS: DILTIAZEM CD 300 MG CAPSULE PO SCH (09:06)
[2018-11-28] MEDS: LISINOPRIL 10 MG TABLET PO SCH (09:06)
[2018-11-28] MEDS: ASPIRIN EC 81 MG TABLET PO SCH (09:06)
[2018-11-28] MEDS: PANTOPRAZOLE 40 MG TABLET PO SCH ×2 (09:07→23:08)
[2018-11-28] MEDS: POTASSIUM CHLORIDE 20 MEQ TABLET PO SCH (09:07)
[2018-11-28] MEDS: DOCUSATE SODIUM 100 MG CAPSULE PO SCH ×2 (09:07→23:08)
[2018-11-28] MEDS: MAGNESIUM OXIDE 400 MG TABLET PO SCH ×3 (09:07→23:10)
[2018-11-28] MEDS: INSULIN REGULAR 100 UNIT/ML SUBCUT SCH ×4 (09:08→23:13)
[2018-11-28] MEDS: MONTELUKAST 10 MG TABLET PO SCH (09:08)
[2018-11-28] MEDS: NITROFURANTOIN MACRO/MONO 100 MG CAPSULE PO SCH ×2 (09:08→23:11)
[2018-11-28] MEDS: cefTRIAXone 1,000 MG in SYRINGE 1 EACH IV SCH (09:40)
[2018-11-28] MEDS: LEVOTHYROXINE 25 MCG TABLET PO SCH (09:48)
[2018-11-28] MEDS: FERROUS SULFATE 325 MG TABLET PO SCH ×2 (10:57→23:12)
[2018-11-28] MEDS: ACETAMINOPHEN 500 MG TABLET PO PRN (14:00)
[2018-11-28] MEDS: ACETAMINOPHEN 325 MG TABLET PO SCH ×2 (14:59→23:12)
[2018-11-28] MEDS: LISINOPRIL 20 MG TABLET PO SCH (15:36)
[2018-11-28] MEDS: GABAPENTIN 100 MG CAPSULE PO SCH ×2 (15:36→23:09)
[2018-11-28] MEDS: ZALEPLON 5 MG CAPSULE PO PRN (23:07)
[2018-11-28] MEDS: cloNIDine 0.1 MG TABLET PO SCH (23:10)
[2018-11-28] MEDS: SERTRALINE 50 MG TABLET PO SCH (23:10)
[2018-11-28] MEDS: SIMVASTATIN 10 MG TABLET PO SCH (23:11)
[2018-11-28] MEDS: rOPINIRole 0.25 MG TABLET PO SCH (23:12)
[2018-11-28] MEDS: INSULIN GLARGINE 100 UNIT/ML SUBCUT SCH (23:13)
[2018-11-29] MEDS: ALBUTEROL/IPRATROPIUM 3 ML NEB RESP TX SCH ×4 (00:55→20:20)
[2018-11-29] MEDS: CLINDAMYCIN INJ 300 MG in PREMIX 1 EACH IV SCH ×3 (03:13→17:53)
[2018-11-29 04:03] LABS: Basophils % 0.5 % (0.0-0.8); Eosinophils % 0.6 % (0.00-10.9); Hemoglobin 8.8 GM/DL (12.0-16.0); Immature Granulocytes % 0.8 %; Immature Granulocytes Absolute 0.05 #; Lymphocytes # 1.6 10*3/uL (1.4-4.0); Lymphocytes % 25.3 % (21.3-54.2); Mean Corpuscular HGB Conc 29.3 GM/DL (32-36); Mean Corpuscular Volume 85.2 FL (87-102); Mean Platelet Volume 11.1 FL (9.6-12.0); Monocytes % 9.2 % (1.7-12.7); NRBC # 0.05 10*3/uL; Neutrophils % 63.6 % (38.7-73.9); Platelet Count 278 T/CUMM (130-400); Red Blood Count 3.52 MC/CUMM (3.8-5.5); Red Cell Distribution Width 17.7 % (9.3-17.3); White Blood Count 6.4 T/CUMM (4-12)
[2018-11-29 04:04] LABS: Calcium 9.4 MG/DL (8.5-10.1); INR 0.9; Osmolality,Calculated 288.1 MOS/KG (273-304); PT Patient Result 10.1 SECS (9.6-12.2); Partial Thromboplastin Time 22.2 SECS (20.8-36.0)
[2018-11-29] MEDS ORDERED: diphenhydrAMINE 50 MG/1 ML VIAL IM ONE (08:00)
[2018-11-29] MEDS ORDERED: MEPERIDINE 50 MG/1 ML VIAL IM ONE (08:00)
[2018-11-29] MEDS ORDERED: BENZONATATE 100 MG CAPSULE PO ONE (08:00)
[2018-11-29] MEDS: INSULIN REGULAR 100 UNIT/ML SUBCUT SCH ×4 (08:16→22:47)
[2018-11-29] MEDS: MAGNESIUM OXIDE 400 MG TABLET PO SCH ×3 (08:17→22:45)
[2018-11-29] MEDS ORDERED: LIDOCAINE 1% 20 ML VIAL MISC INJ ONE (08:30)
[2018-11-29] MEDS ORDERED: LIDOCAINE 2% 20 ML VIAL RESP TX ONE (08:30)
[2018-11-29] MEDS ORDERED: LIDOCAINE 2% VISCOUS 100 ML BOTTLE SWISH/SPIT ONE (08:30)
[2018-11-29] MEDS ORDERED: MIDAZOLAM 2 MG/2 ML VIAL ONE (08:40)
[2018-11-29] MEDS ORDERED: MIDAZOLAM 2 MG/2 ML VIAL IV ONE (09:00)
[2018-11-29] MEDS: cefTRIAXone 1,000 MG in SYRINGE 1 EACH IV SCH (10:03)
[2018-11-29] MEDS: MEMANTINE 10 MG TABLET PO SCH ×2 (11:22→22:45)
[2018-11-29] MEDS: LEVOTHYROXINE 25 MCG TABLET PO SCH (11:22)
[2018-11-29] MEDS: PANTOPRAZOLE 40 MG TABLET PO SCH ×2 (11:23→22:44)
[2018-11-29] MEDS: ASPIRIN EC 81 MG TABLET PO SCH (11:23)
[2018-11-29] MEDS: DILTIAZEM CD 300 MG CAPSULE PO SCH (11:23)
[2018-11-29] MEDS: MONTELUKAST 10 MG TABLET PO SCH (11:23)
[2018-11-29] MEDS: busPIRone 15 MG TABLET PO SCH ×2 (11:23→22:46)
[2018-11-29] MEDS: LISINOPRIL 20 MG TABLET PO SCH (11:24)
[2018-11-29] MEDS: FERROUS SULFATE 325 MG TABLET PO SCH ×2 (11:24→22:44)
[2018-11-29] MEDS: NITROFURANTOIN MACRO/MONO 100 MG CAPSULE PO SCH ×2 (11:24→22:45)
[2018-11-29] MEDS: DONEPEZIL 10 MG TABLET PO SCH (11:24)
[2018-11-29] MEDS: ASCORBIC ACID 500 MG TABLET PO SCH ×2 (11:25→22:44)
[2018-11-29] MEDS: DOCUSATE SODIUM 100 MG CAPSULE PO SCH ×2 (11:25→22:44)
[2018-11-29] MEDS: FUROSEMIDE 40 MG TABLET PO SCH ×2 (11:25→16:18)
[2018-11-29] MEDS: BISOPROLOL 5 MG TABLET PO SCH ×2 (11:26→22:46)
[2018-11-29] MEDS: GABAPENTIN 100 MG CAPSULE PO SCH ×3 (11:26→22:45)
[2018-11-29] MEDS: POTASSIUM CHLORIDE 20 MEQ TABLET PO SCH (11:27)
[2018-11-29] MEDS: ACETAMINOPHEN 500 MG TABLET PO PRN ×2 (11:27→22:45)
[2018-11-29] MEDS: POTASSIUM CHLORIDE 20 MEQ TABLET PO PRN (11:29)
[2018-11-29] MEDS: ACETAMINOPHEN 325 MG TABLET PO SCH ×2 (11:29→22:48)
[2018-11-29] MEDS: rOPINIRole 0.25 MG TABLET PO SCH (22:45)
[2018-11-29] MEDS: SIMVASTATIN 10 MG TABLET PO SCH (22:45)
[2018-11-29] MEDS: cloNIDine 0.1 MG TABLET PO SCH (22:45)
[2018-11-29] MEDS: SERTRALINE 50 MG TABLET PO SCH (22:45)
[2018-11-29] MEDS: INSULIN GLARGINE 100 UNIT/ML SUBCUT SCH (22:47)
[2018-11-30] MEDS: ZALEPLON 5 MG CAPSULE PO PRN (00:24)
[2018-11-30] MEDS: ALBUTEROL/IPRATROPIUM 3 ML NEB RESP TX SCH ×3 (02:05→12:11)
[2018-11-30] MEDS: CLINDAMYCIN INJ 300 MG in PREMIX 1 EACH IV SCH ×2 (04:48→11:29)
[2018-11-30] MEDS: INSULIN REGULAR 100 UNIT/ML SUBCUT SCH ×2 (09:13→12:06)
[2018-11-30] MEDS: ASPIRIN EC 81 MG TABLET PO SCH (09:15)
[2018-11-30] MEDS: BISOPROLOL 5 MG TABLET PO SCH (09:15)
[2018-11-30] MEDS: LISINOPRIL 20 MG TABLET PO SCH (09:15)
[2018-11-30] MEDS: MAGNESIUM OXIDE 400 MG TABLET PO SCH ×2 (09:15→14:59)
[2018-11-30] MEDS: busPIRone 15 MG TABLET PO SCH (09:15)
[2018-11-30] MEDS: NITROFURANTOIN MACRO/MONO 100 MG CAPSULE PO SCH (09:15)
[2018-11-30] MEDS: DONEPEZIL 10 MG TABLET PO SCH (09:15)
[2018-11-30] MEDS: MONTELUKAST 10 MG TABLET PO SCH (09:15)
[2018-11-30] MEDS: POTASSIUM CHLORIDE 20 MEQ TABLET PO SCH (09:16)
[2018-11-30] MEDS: LEVOTHYROXINE 25 MCG TABLET PO SCH (09:16)
[2018-11-30] MEDS: FERROUS SULFATE 325 MG TABLET PO SCH (09:16)
[2018-11-30] MEDS: DOCUSATE SODIUM 100 MG CAPSULE PO SCH (09:16)
[2018-11-30] MEDS: PANTOPRAZOLE 40 MG TABLET PO SCH (09:16)
[2018-11-30] MEDS: ASCORBIC ACID 500 MG TABLET PO SCH (09:16)
[2018-11-30] MEDS: MEMANTINE 10 MG TABLET PO SCH (09:16)
[2018-11-30] MEDS: FUROSEMIDE 40 MG TABLET PO SCH (09:16)
[2018-11-30] MEDS: DILTIAZEM CD 300 MG CAPSULE PO SCH (09:16)
[2018-11-30] MEDS: ACETAMINOPHEN 325 MG TABLET PO SCH (09:17)
[2018-11-30] MEDS: GABAPENTIN 100 MG CAPSULE PO SCH ×2 (09:18→14:59)
[2018-11-30] MEDS: cefTRIAXone 1,000 MG in SYRINGE 1 EACH IV SCH (11:29)
[2018-11-30 13:13] VITALS: BP 122/72
== END 2018-11-30 15:55 | disposition home or self-care (01) | DRG 308 ==
LOC: N.ED 10:54 → SUATTDRO 12:20 → N.EDINP 12:20 → N.TELES 14:57
PROVIDERS: ATTEND Internal Medicine